=== PATIENT | female | born 1935 | race Caucasian/White ===

== ENCOUNTER → 2017-04-08 | Outpatient (CLI) | payer MEDICARE, OTHER ==
--- NOTE | 2017-04-08 11:57 | RADIOLOGY REPORT (SQ) ---
EXAM DESCRIPTION: BARIUM SWALLOW PHARYNX ONLY COMPLETED DATE/TIME: 04/08/2017 9:42 am REASON FOR STUDY: ERUCTATION (R14.2) R14.2 ERUCTATION COMPARISON: None. TECHNIQUE: Under fluoroscopic guidance, patient ingested effervescent granules followed by thick and thin barium. Fluoroscopic spot images and routine radiographic images acquired and stored on PACS. 12 MM BARIUM TABLET GIVEN: Yes. No significant delay in passage. LIMITATIONS: None. FLUOROSCOPY TIME: FLUORO TIME: 32 seconds 11 series of digital images saved to PACS. FINDINGS: NEUROMUSCULAR COORDINATION OF SWALLOW: Normal. No aspiration. ESOPHAGEAL MOTILITY: Occasional tertiary contractions, otherwise normal peristalsis. No esophageal sp asm. ESOPHAGEAL MUCOSA: Normal mucosa without masses or ulceration. GASTRO-ESOPHAGEAL JUNCTION: Small hiatal hernia. Unprovoked gastroesophageal reflux to the upper 3rd of the esophagus. Early Schatzki's ring formation without impeding passage of the barium tablet NON-GI TRACT STRUCTURES: No significant finding. OTHER: No other significant finding. IMPRESSION: Small hiatal hernia with unprovoked gastroesophageal reflux and early Schatzki's ring fo rmation COMMENT: Quality ID [id number]: Final reports for procedures using fluoroscopy that document radiation exp osure indices, or exposure time and number of fluorographic images (if radiation exposure indices are not available) TECHNICAL DOCUMENTATION: JOB ID: [id number] [email or web address]- All Rights Reserved
== END ==
LOC: RAD 08:51
PROVIDERS: ATTEND Physician Assistant
DX: K21.9 Gastro-esophageal reflux disease without esophagitis (principal); K44.9 Diaphragmatic hernia without obstruction or gangrene; K22.2 Esophageal obstruction; R14.2 Eructation
CPT/HCPCS: 74210

== ENCOUNTER → 2017-04-13 | Outpatient (CLI) | payer MEDICARE, OTHER ==
--- NOTE | 2017-04-13 12:02 | RADIOLOGY REPORT (SQ) ---
EXAM DESCRIPTION: ACUTE ABDOMEN SERIES COMPLETED DATE/TIME: 04/13/2017 11:23 am REASON FOR STUDY: [place] (R14.2) R14.2 ERUCTATION COMPARISON: None. NUMBER OF VIEWS: Three views. TECHNIQUE: Frontal chest, supine abdomen and upright abdomen radiographic images acquired. LIMITATIONS: None. FINDINGS: CHEST: Lungs clear of infiltrates. FREE AIR: None. No abnormal gas collections. BOWEL GAS PATTERN: Nonobstructive pattern. No dilated loops or air fluid levels. CALCIFICATIONS: No suspicious calcifications. HARDWARE: None in the abdomen. SOFT TISSUES: No gross mass or suggestion of organomegaly. BONES: No acute fracture. No worrisome bone lesions. OTHER: There are some barium filled diverticula. IMPRESSION: NO RADIOGRAPHIC EVIDENCE FOR ACUTE ABDOMINAL DISEASE. TECHNICAL DOCUMENTATION: JOB ID: [id number] [employer]- All Rights Reserved
== END ==
LOC: RAD 10:47
PROVIDERS: ATTEND Physician Assistant
DX: R14.2 Eructation (principal)
CPT/HCPCS: 74022

== ENCOUNTER 2017-09-23 10:48 | Observation (INO) | payer MEDICARE, OTHER ==
[2017-09-23] MEDS ORDERED: ASPIRIN 81 MG TABLET, CHEWABLE PO ONE (11:14)
--- NOTE | 2017-09-23 11:17 | ER Document Report ---
ED Medical Screen (RME) - General Chief Complaint: Chest Pain Stated Complaint: CHEST PAIN Time Seen by Provider: 09/23/17 11:12 Mode of Arrival: Wheelchair Information source: Patient TRAVEL OUTSIDE OF THE [place] IN LAST 30 DAYS: No - HPI Onset: This morning Onset/Duration: Sudden Quality of pain: Other - CAN'T DESCRIBE Severity: Severe Associated Symptoms: Shortness of breath Similar symptoms previously: No Recently seen / treated by doctor: No - Related Data Smoking: Non-smoker Allergies/Adverse Reactions: hydroxyzine HCl [From Vistaril] Allergy (Severe, Verified 09/23/17 10:50) swelling hydroxyzine pamoate [From Vistaril] Allergy (Severe, Verified 09/23/17 10:50) swelling Past Medical History - General Information source: Patient - Past Medical History Cardiac Medical History: Reports: Hx Hypercholesterolemia, Hx Hypertension Denies: Hx Atrial Fibrillation, Hx Congestive Heart Failure, Hx Coronary Artery Disease, Hx Heart Attack, Hx Peripheral Vascular Disease, Hx Heart Murmur Pulmonary Medical History: Reports: Hx Pneumonia - hx, Hx Sleep Apnea - USES MACHINE AT HOME "SOMETIMES" Denies: Hx Asthma, Hx Bronchitis, Hx COPD, Hx Tuberculosis Neurological Medical History: Denies: Hx Cerebrovascular Accident, Hx Seizures Endocrine Medical History: Reports: Hx Diabetes Mellitus Type 2. Denies: Hx Graves' Disease, Hx Hyperthyroidism, Hx Hypothyroidism Malignancy Medical History: Denies: Hx Leukemia GI Medical History: Reports: Hx Gastroesophageal Reflux Disease Musculoskeltal Medical History: Denies Hx Arthritis, Denies Hx Fibromyalgia, Denies Hx Multiple Sclerosis, Denies Hx Muscular Dystrophy Psychiatric Medical History: Reports: Hx Dementia, Hx Depression Denies: Hx Bipolar Disorder, Hx Post Traumatic Stress Disorder, Hx Schizophrenia Traumatic Medical History: Denies: Hx Fractures Infectious Medical History: Denies: Hx HIV Past Surgical History: Reports: Hx Hysterectomy. Denies: Hx Pacemaker - Immunizations Hx Diphtheria, Pertussis, Tetanus Vaccination: Yes Review of Systems - Review of Systems -: Yes ROS unobtainable due to patient's medical condition Physical Exam - Vital signs Vitals: Temp Pulse Resp BP Pulse Ox 97.9 F 70 26 H 121/48 L 100 09/23/17 11:01 09/23/17 11:01 09/23/17 11:01 09/23/17 11:01 09/23/17 11:01 Interpretation: Hypotensive, Tachypneic - General General appearance: Anxious In distress: Moderate - HEENT Head: Normocephalic Eyes: Normal Conjunctiva: Normal Mouth/Lips: Normal Mucous membranes: Normal - Respiratory Respiratory status: No respiratory distress Chest status: Nontender Breath sounds: Normal - Cardiovascular Rhythm: Regular Heart sounds: Normal auscultation Murmur: No - Extremities General upper extremity: Normal inspection General lower extremity: Normal inspection. No: Tender, Edema - Neurological Neuro grossly intact: Yes Cognition: Normal Orientation: AAOx4 - Skin Skin Temperature: Warm Skin Moisture: Dry Skin Color: Normal Skin Turgor: Elastic Course - Vital Signs Vital signs: Temp Pulse Resp BP Pulse Ox 97.9 F 70 26 H 121/48 L 100 09/23/17 11:01 09/23/17 11:01 09/23/17 11:01 09/23/17 11:01 09/23/17 11:01
--- NOTE | 2017-09-23 11:20 | ER Document Report ---
ED General - General Chief Complaint: Chest Pain Stated Complaint: CHEST PAIN Time Seen by Provider: 09/23/17 11:12 Mode of Arrival: Ambulatory Information source: Patient, Relative - daughter and friend TRAVEL OUTSIDE OF THE [place] IN LAST 30 DAYS: No - HPI Notes: 82-year-old female past medical history of dementia hypertension, type 2 diabetes, chronic kidney disease, acid reflux, depression, hyperlipidemia presents to the emergency room for sudden onset chest pain, reports she feels "like someone is sitting on my chest" that started approximately 1 hour ago. Patient reports shortness of breath, pain is sharp. Patient is gripping her chest. Patient also is complaining of left upper quadrant that started approximately the same time. Pain is 10 out of 10. Has not tried any over-the- counter medications. Denies any previous concerns of heart attack. Pain is been constant. Patient did take Ativan in the past but per daughter states that she has not taken this in a couple of years. Denies fevers, chills, palpitations, nausea, vomiting, diarrhea, hematuria,blurred vision, double vision, loss of vision, speech changes, LH, dizziness, syncope, headaches, wheezing, ST, URI, neck pain, weakness, bowel or bladder dysfunction, saddle anesthesia, numbness or tingling in bilateral upper or lower extremities equally , muscle paralysis, weakness in bilateral upper or lower extremities equally or rash. Denies IV drug use. - Related Data Allergies/Adverse Reactions: hydroxyzine HCl [From Vistaril] Allergy (Severe, Verified 09/23/17 10:50) swelling hydroxyzine pamoate [From Vistaril] Allergy (Severe, Verified 09/23/17 10:50) swelling Past Medical History - General Information source: Patient, Relative - daughter - Social History Smoking Status: Former Smoker Family History: Reviewed & Not Pertinent - Past Medical History Cardiac Medical History: Reports: Hx Hypercholesterolemia, Hx Hypertension Denies: Hx Atrial Fibrillation, Hx Congestive Heart Failure, Hx Coronary Artery Disease, Hx Heart Attack, Hx Peripheral Vascular Disease, Hx Heart Murmur Pulmonary Medical History: Reports: Hx Pneumonia - hx, Hx Sleep Apnea - USES MACHINE AT HOME "SOMETIMES" Denies: Hx Asthma, Hx Bronchitis, Hx COPD, Hx Tuberculosis Neurological Medical History: Denies: Hx Cerebrovascular Accident, Hx Seizures Endocrine Medical History: Reports: Hx Diabetes Mellitus Type 2. Denies: Hx Graves' Disease, Hx Hyperthyroidism, Hx Hypothyroidism Malignancy Medical History: Denies: Hx Leukemia GI Medical History: Reports: Hx Gastroesophageal Reflux Disease Musculoskeltal Medical History: Denies Hx Arthritis, Denies Hx Fibromyalgia, Denies Hx Multiple Sclerosis, Denies Hx Muscular Dystrophy Psychiatric Medical History: Reports: Hx Dementia, Hx Depression Denies: Hx Bipolar Disorder, Hx Post Traumatic Stress Disorder, Hx Schizophrenia Traumatic Medical History: Denies: Hx Fractures Infectious Medical History: Denies: Hx HIV Past Surgical History: Reports: Hx Hysterectomy. Denies: Hx Pacemaker - Immunizations Hx Diphtheria, Pertussis, Tetanus Vaccination: Yes Hx Pneumococcal Vaccination: 02/22/10 Review of Systems - Review of Systems Constitutional: See HPI EENT: No symptoms reported Cardiovascular: See HPI Respiratory: See HPI Gastrointestinal: See HPI Genitourinary: No symptoms reported Female Genitourinary: No symptoms reported Musculoskeletal: No symptoms reported Skin: No symptoms reported Hematologic/Lymphatic: No symptoms reported Neurological/Psychological: No symptoms reported Physical Exam - Vital signs Vitals: Temp Pulse Resp BP Pulse Ox 97.9 F 70 26 H 121/48 L 100 09/23/17 11:01 09/23/17 11:01 09/23/17 11:01 09/23/17 11:01 09/23/17 11:01 - Notes Notes: PHYSICAL EXAMINATION: GENERAL: Well-appearing, well-nourished and in no moderate distress EYES: Pupils equal round and reactive to light, extraocular movements intact, conjunctiva are normal. ENT: Nares patent, oropharynx clear without exudates. Moist mucous membranes. NECK: Normal range of motion, supple without lymphadenopathy LUNGS: Breath sounds clear to auscultation bilaterally and equal. No wheezes rales or rhonchi. Retracting with accessory muscle use. HEART: Regular rate and rhythm without murmurs ABDOMEN: Soft, nondistended abdomen. Left upper quadrant tenderness on palpation with guarding, no rebound. No masses appreciated. Female : deferred Musculoskeletal: Normal range of motion, no pitting or edema. No cyanosis. NEUROLOGICAL: Cranial nerves grossly intact. Poor memory. normal speech, normal gait. Normal sensory, motor exams PSYCH: Normal mood, normal affect. SKIN: Warm, Dry, normal turgor, no rashes or lesions noted. Course - Re-evaluation Re-evalutation: 05/02/18 18:46 82-year-old female with chest pain onset, patient given baby aspirin nature, daughter and pt states that patient's chest pain resolved after given nitro. CBC negative for leukocytosis or anemia, or hepatic dysfunction, no electrolyte disturbances. Urinalysis is leukocytes with patient. Cardiac enzymes negative, CTA chest/abdomen negative for any acute findings per radiology. After performing a Medical Screening Examination, I estimate there is LOW risk for acute appendicitis, obstruction, acute cholecystitis, perforated diverticulitis , incarcerated hernia, pancreatitis, perforated ulcer, tubo-ovarian abscess. Patient did have chest pain resolution pain 0.4 nitro, and discussed with patient that resolution chest pain after taking the nitroglycerin did not resolve diagnostically indicated coronary spasm. Discussed with patient and daughter that she will need a full cardiac workup for suspected unstable angina. Patient states after taking nitroglycerin she does not feel like she has been sitting in her chest. On reevaluation patient is not retracting, using accessory muscle use, patient does not seem to be hyperventilating. Patient is sleeping peacefully in bed. Discussed case with Dr. Bernabe Lopez, hospitalist admit for cardiac evaluation after experiencing resolution of chest pain after given sublingual nitroglycerin. All questions and concerns answered by this provider. Patient family agree with plan of care staying overnight for observation. - Vital Signs Vital signs: Temp Pulse Resp BP Pulse Ox 98.1 F 70 17 93/75 L 100 09/23/17 18:29 09/23/17 11:01 09/23/17 18:01 09/23/17 18:01 09/23/17 18:01 - Laboratory Result Diagrams: 09/23/17 11:30 09/23/17 11:30 Laboratory results interpreted by me: 09/23/17 09/23/17 09/23/17 11:30 11:30 12:16 RDW 14.4 H Sodium 148.6 H Anion Gap 20 H BUN 23 H Est GFR ( Amer) 54 L Est GFR (Non-Af Amer) 45 L Glucose 168 H Urine Nitrite POSITIVE H Ur Leukocyte Esterase MODERATE H Urine Ascorbic Acid 40 H Discharge - Discharge Clinical Impression: Unstable angina UTI (urinary tract infection) Qualifiers: Urinary tract infection type: acute cystitis Hematuria presence: without hematuria Qualified Code(s): N30.00 - Acute cystitis without hematuria Condition: Good Disposition: ADMITTED OBSERVATION Admitting Provider: Hospitalist - Dr. Kidd Onime Unit Admitted: Telemetry
[2017-09-23 11:44] LABS: ABSOLUTE EOSINOPHILS # (AUTO) 0.2 10^3/uL (0.0-0.6); ABSOLUTE LYMPHOCYTES (AUTO) 1.6 10^3/uL (0.5-4.7); ABSOLUTE MONOCYTES (AUTO) 0.5 10^3/uL (0.1-1.4); BASOPHILS % (AUTO) 0.5 % (0-2); EOSINOPHILS % (AUTO) 2.6 % (0-6); HEMATOCRIT 36.4 % (36.0-47.0); HEMOGLOBIN 12.1 g/dL (12.0-15.5); LYMPHOCYTES % (AUTO) 16.7 % (13-45); MEAN CORPUSCULAR HEMOGLOBIN 32.2 pg (27.0-33.4); MEAN CORPUSCULAR HGB CONC 33.3 g/dL (32.0-36.0); MEAN CORPUSCULAR VOLUME 97 fl (80-97); MONOCYTES % (AUTO) 5.2 % (3-13); PLATELET COUNT 226 10^3/uL (150-450); RED BLOOD COUNT 3.76 10^6/uL (3.72-5.28); RED CELL DISTRIBUTION WIDTH 14.4 % (11.5-14.0); TOTAL CELLS COUNTED % (AUTO) 100 %; WHITE BLOOD COUNT 9.3 10^3/uL (4.0-10.5)
[2017-09-23] MEDS ORDERED: NITROGLYCERIN 0.4 MG/TAB 25 TAB/BOTTLE SL PRN (11:47)
[2017-09-23 12:14] LABS: CREATINE KINASE MB 0.69 ng/mL (<4.55)
--- NOTE | 2017-09-23 12:14 | RADIOLOGY REPORT (SQ) ---
EXAM DESCRIPTION: CHEST SINGLE VIEW COMPLETED DATE/TIME: 09/23/2017 12:06 pm REASON FOR STUDY: CHEST PAIN COMPARISON: Two-view chest 03/27/2014 PA chest 04/13/2017 EXAM PARAMETERS: NUMBER OF VIEWS: One view. TECHNIQUE: Single frontal radiographic view of the chest acquired. RADIATION DOSE: NA LIMITATIONS: Lordotic film FINDINGS: LUNGS AND PLEURA: No opacities, masses or pneumothorax. No pleural effusion. MEDIASTINUM AND HILAR STRUCTURES: No masses. Contour normal. HEART AND VASCULAR STRUCTURES: Heart normal in size. Normal vasculature. BONES: No acute findings. HARDWARE: None in the chest. OTHER: No other significant finding. IMPRESSION: NO ACUTE RADIOGRAPHIC FINDING IN THE CHEST. TECHNICAL DOCUMENTATION: JOB ID: [id number] [email or web address]- All Rights Reserved Reading location - IP/workstation name: [email or web address]
[2017-09-23 12:23] LABS: TROPONIN I < 0.012 ng/mL
[2017-09-23 12:44] LABS: APPEARANCE,URINE CLOUDY; BILIRUBIN,URINE NEGATIVE (NEGATIVE); COLOR,URINE YELLOW; GLUCOSE, URINE NEGATIVE (NEGATIVE); KETONES,URINE NEGATIVE (NEGATIVE); LEUKOCYTE ESTERASE,URINE MODERATE (NEGATIVE); NITRITE,URINE POSITIVE (NEGATIVE); PROTEIN,URINE NEGATIVE (NEGATIVE); URINE SPECIFIC GRAVITY 1.016; UROBILINOGEN,URINE NEGATIVE mg/dL (<2.0)
[2017-09-23 13:53] LABS: ALANINE AMINOTRANSFERASE 34 U/L (9-52); ALKALINE PHOSPHATASE 117 U/L (38-126); ASPARTATE AMINO TRANSFERASE 27 U/L (14-36); BILIRUBIN,DIRECT 0.3 mg/dL (0.0-0.4); BILIRUBIN,TOTAL 0.3 mg/dL (0.2-1.3); BLOOD UREA NITROGEN 23 mg/dL (7-20); CALCIUM 9.7 mg/dL (8.4-10.2); CARBON DIOXIDE 22 mmol/L (22-30); CHLORIDE 107 mmol/L (98-107); CREATINE KINASE 50 U/L (30-135); GLUCOSE 168 mg/dL (75-110); SODIUM 148.6 mmol/L (137-145); TOTAL PROTEIN 7.2 g/dL (6.3-8.2)
[2017-09-23 13:58] LABS: ANION GAP 20 (5-19)
[2017-09-23] MEDS ORDERED: NORMAL SALINE 1000 ML 1,000 ML IV PRN (14:09)
[2017-09-23] MEDS ORDERED: CEFTRIAXONE INJ 1000 MG VIAL IM ONE (14:50)
--- NOTE | 2017-09-23 15:07 | RADIOLOGY REPORT (SQ) ---
EXAM DESCRIPTION: CTA CHEST; CTA ABDOMEN COMPLETED DATE/TIME: 09/23/2017 2:42 pm REASON FOR STUDY: dyspnea with cp; LUQ tenderness, severe pain, sudden onset COMPARISON: None. TECHNIQUE: CT scan of the chest, abdomen (to the level of the aortic bifurcation) performed using he lical scanning technique with dynamic intravenous contrast injection. Additional delayed abdominal s gene. Images reviewed with lung, soft tissue and bone windows. Reconstructed coronal and sagitta l MPR images reviewed. Additional 3 dimensional post-processing performed to develop Maximal Intensity Projection images ([place] P). All images stored on PACS. All CT scanners at this facility use dose modulation, iterative reconstruction, and/or weight based d osing when appropriate to reduce radiation dose to as low as reasonably achievable (ALARA). [facility]: Dose Right [facility]: CareDose [facility]: Dose Right [facility]: Teradose 4D [facility]: [employer] CONTRAST TYPE AND DOSE: contrast/concentration: Isovue 370.00 mg/ml; Total Contrast Delivered: 64.0 ml; Total Saline Delivered: 99.1 ml Contrast bolus optimized for the pulmonary arteries. Not diagnostic for the aorta. RENAL FUNCTION: Creatinine 1.2 RADIATION DOSE: CT Rad equipment meets quality standard of care and radiation dose reduction techniq ues were employed. CTDIvol: 11.3 - 19.6 mGy. DLP: 1111 mGy-cm. . LIMITATIONS: None. FINDINGS: Chest Aorta: Atherosclerotic. No evidence of aneurysm or dissection. Heavily calcified but patent great vessel origins. Pulmonary arteries: Limited assessment due to phase of contrast. No gross central clot detected. Mediastinum: No adenopathy or mass. No pericardial effusion. No significant coronary calcification. Lungs: Motion artifact. Otherwise generally clear. Bones: No evidence of fracture or lesion. Abdomen Aorta: Atherosclerotic. No evidence of aneurysm or dissection. Patent major arterial branches. Solid organs: No lesion. No urinary obstruction. No peripancreatic inflammatory changes. Gallbladder: Surgically absent. No duct dilatation. Bowel: No evidence of mechanical bowel obstruction. No abnormal bowel wall thickening. Other: No ascites or abnormal gas. No bone lesions or fracture. IMPRESSION: 1. No evidence of thoracic or abdominal aneurysm or dissection. 2. No acute or suspicio us thoracic or abdominal findings. COMMENT: Quality ID # [id number]: Final reports with documentation of one or more dose reduction techniques (e.g., Automated exposure control, adjustment of the mA and/or kV according to patient size, use of iterative reconstruction technique) TECHNICAL DOCUMENTATION: JOB ID: [id number] [employer]- All Rights Reserved Reading location - IP/workstation name: [email or web address]
--- NOTE | 2017-09-23 15:07 | RADIOLOGY REPORT (SQ) ---
EXAM DESCRIPTION: CTA CHEST; CTA ABDOMEN COMPLETED DATE/TIME: 09/23/2017 2:42 pm REASON FOR STUDY: dyspnea with cp; LUQ tenderness, severe pain, sudden onset COMPARISON: None. TECHNIQUE: CT scan of the chest, abdomen (to the level of the aortic bifurcation) performed using he lical scanning technique with dynamic intravenous contrast injection. Additional delayed abdominal s gene. Images reviewed with lung, soft tissue and bone windows. Reconstructed coronal and sagitta l MPR images reviewed. Additional 3 dimensional post-processing performed to develop Maximal Intensity Projection images ([place] P). All images stored on PACS. All CT scanners at this facility use dose modulation, iterative reconstruction, and/or weight based d osing when appropriate to reduce radiation dose to as low as reasonably achievable (ALARA). [facility]: Dose Right [facility]: CareDose [facility]: Dose Right [facility]: Teradose 4D [facility]: [employer] CONTRAST TYPE AND DOSE: contrast/concentration: Isovue 370.00 mg/ml; Total Contrast Delivered: 64.0 ml; Total Saline Delivered: 99.1 ml Contrast bolus optimized for the pulmonary arteries. Not diagnostic for the aorta. RENAL FUNCTION: Creatinine 1.2 RADIATION DOSE: CT Rad equipment meets quality standard of care and radiation dose reduction techniq ues were employed. CTDIvol: 11.3 - 19.6 mGy. DLP: 1111 mGy-cm. . LIMITATIONS: None. FINDINGS: Chest Aorta: Atherosclerotic. No evidence of aneurysm or dissection. Heavily calcified but patent great vessel origins. Pulmonary arteries: Limited assessment due to phase of contrast. No gross central clot detected. Mediastinum: No adenopathy or mass. No pericardial effusion. No significant coronary calcification. Lungs: Motion artifact. Otherwise generally clear. Bones: No evidence of fracture or lesion. Abdomen Aorta: Atherosclerotic. No evidence of aneurysm or dissection. Patent major arterial branches. Solid organs: No lesion. No urinary obstruction. No peripancreatic inflammatory changes. Gallbladder: Surgically absent. No duct dilatation. Bowel: No evidence of mechanical bowel obstruction. No abnormal bowel wall thickening. Other: No ascites or abnormal gas. No bone lesions or fracture. IMPRESSION: 1. No evidence of thoracic or abdominal aneurysm or dissection. 2. No acute or suspicio us thoracic or abdominal findings. COMMENT: Quality ID # [id number]: Final reports with documentation of one or more dose reduction techniques (e.g., Automated exposure control, adjustment of the mA and/or kV according to patient size, use of iterative reconstruction technique) TECHNICAL DOCUMENTATION: JOB ID: [id number] [employer]- All Rights Reserved Reading location - IP/workstation name: [email or web address]
[2017-09-23 15:44] LABS: CREATINE KINASE MB 0.61 ng/mL (<4.55); TROPONIN I < 0.012 ng/mL
[2017-09-23] MEDS ORDERED: CEFTRIAXONE INJ 1000 MG VIAL IV ONE (15:44)
--- NOTE | 2017-09-23 18:17 | PDOC H&P ---
History of Present Illness Admission Date/PCP: 09/23/17 17:18 BAILEE MONTEZ Patient complains of: Chest pain, no flank pain History of Present Illness: VEGA MARIO is a 82 year old female with history of hypertension, presented to the ED with complaint of left flank pain radiating to left chest, onset today. No trauma. She had shortness of breath, no palpitations. In the emergency room she was treated sublingual nitro with relief of pain. She reports limited exercise tolerance. She is that he does not get chest pain. Patient also found to have UTI and treated with 1 g of Rocephin. She denies fever or chills, no nausea vomiting. She has CTA of the abdomen and chest done that revealed no significant findings. Initial troponin negative. Patient referred to hospitalist service for admission and further evaluation and management. Past Medical History Cardiac Medical History: Reports: Hyperlipidema, Hypertension Denies: Atrial Fibrillation, Congestive Heart Failure, Coronary Artery Disease, Myocardial Infarction, Peripheral Vascular Disease, Heart Murmur Pulmonary Medical History: Reports: Pneumonia - hx, Sleep Apnea - USES MACHINE AT HOME "SOMETIMES" Denies: Asthma, Bronchitis, Chronic Obstructive Pulmonary Disease (COPD), Tuberculosis Neurological Medical History: Denies: Seizures Endocrine Medical History: Reports: Diabetes Mellitus Type 2 Denies: Hyperthyroidism, Hypothyroidism Malignancy Medical History: Denies: Leukemia GI Medical History: Reports: Gastroesophageal Reflux Disease Musculoskeltal Medical History: Denies: Arthritis, Fibromyalgia Psychiatric Medical History: Reports: Dementia, Depression Denies: Bipolar Disorder, Post Traumatic Stress Disorder Hematology: Reports: Anemia Denies: Hemophilia, Sickle Cell Disease Infectious Medical History: Denies: HIV Past Surgical History Past Surgical History: Reports: Cholecystectomy, Hysterectomy Denies: Amputation, Pacemaker Social History Smoking Status: Never Smoker Hx Recreational Drug Use: No Hx Prescription Drug Abuse: No Family History Family History: Reviewed & Not Pertinent Parental Family History Reviewed: Yes Children Family History Reviewed: Yes Sibling(s) Family History Reviewed.: Yes Medication/Allergy Home Medications: Atorvastatin Calcium [Lipitor 10 mg Tablet] 10 mg PO QHS 09/23/17 Cholecalciferol (Vitamin D3) [Vitamin D3 1000 unit Chewable Tablet] 1,000 unit PO DAILY 09/23/17 Clopidogrel Bisulfate [Plavix 75 mg Tablet] 75 mg PO DAILY 09/23/17 Donepezil HCl [Aricept] 10 mg PO QHS 09/23/17 Escitalopram Oxalate [Lexapro 10 mg Tablet] 10 mg PO DAILY 09/23/17 Ferrous Sulfate [Feosol 325 mg Tablet] 325 mg PO DAILY 09/23/17 Hydrochlorothiazide [Hydrodiuril 25 mg Tablet] 12.5 mg PO DAILY 09/23/17 Levothyroxine Sodium [Synthroid 0.025 mg Tablet] 0.025 mg PO DAILY 09/23/17 Metoprolol Succinate [Toprol Xl 50 mg Tab.sr] 50 mg PO DAILY 09/23/17 Pantoprazole Sodium [Protonix] 20 mg PO DAILY 09/23/17 Valsartan [Diovan 80 mg Tablet] 80 mg PO DAILY 09/23/17 Allergies/Adverse Reactions: hydroxyzine HCl [From Vistaril] Allergy (Severe, Verified 09/23/17 10:50) swelling hydroxyzine pamoate [From Vistaril] Allergy (Severe, Verified 09/23/17 10:50) swelling Review of Systems ROS unobtainable: Due to endotracheal tube Review of Systems: CONSTITUTIONAL : Fever, chills -- No; unexpalined fatigue -- No EENT: Denies eye, ear, throat, or mouth pain or symptoms. Denies nasal or sinus congestion or discharge. Denies throat, tongue, or mouth swelling or difficulty swallowing. CARDIOVASCULAR: As in HPI RESPIRATORY: Denies cough, no shortness of breath, difficulty breathing. GASTROINTESTINAL: As in HPI. No rectal bleeding. GENITOURINARY: Urinary symptoms -- no. MUSCULOSKELETAL: No acute weakness SKIN: Denies rash, lesions or sores. HEMATOLOGIC : Denies easy bruising or bleeding. LYMPHATIC: Denies swollen, enlarged glands. NEUROLOGICAL: New weakness, headaches, slured speach - No PSYCHIATRIC: Changes anxiety or stress, depression, suicidal ideation, or homicidal ideation -- No ALL OTHER SYSTEMS REVIEWED AND NEGATIVE. Physical Exam Vital Signs: Temp Pulse Resp BP Pulse Ox 97.9 F 70 17 140/63 H 100 09/23/17 11:01 09/23/17 11:01 09/23/17 17:00 09/23/17 14:01 09/23/17 17:00 GENERAL: Well-developed female, no acute distress HEENT: Normocephalic/atraumatic NECK supple, no JVD CARDIOVASCULAR: RRR, normal S1-S2, no appreciable LUNGS: CTA bilaterally ABDOMEN: Soft, NT, NL bowel sounds EXTREMITIES: No edema, clubbing, cyanosis NEUROLOGICAL: Alert, oriented x 3, no lateralizing weakness Results Laboratory Results: CBC normal, BUN and creatinine 23/1.17, sodium 148, glucose 168. Urinalysis positive nitrite, moderate leukocyte esterase, urine white blood cells 7-1, 3+ bacteria. Lactic acid 1.2 Impressions: Chest X-Ray 09/23/17 11:13 IMPRESSION: NO ACUTE RADIOGRAPHIC FINDING IN THE CHEST. Chest/Abdomen CTA 09/23/17 12:01 IMPRESSION: 1. No evidence of thoracic or abdominal aneurysm or dissection. 2. No acute or suspicious thoracic or abdominal findings. Assessment & Plan - Diagnosis (1) UTI (urinary tract infection) Is this a current diagnosis for this admission?: Yes Plan: Patient received a dose of Rocephin in the ED. We will continue with same antibiotics. Check urine culture and sensitivity and adjust antibiotics as may be needed. (2) Chest pain Is this a current diagnosis for this admission?: Yes Plan: This is cardiac chest pain. Appears patient's symptoms mostly for UTI. Will rule out DC with serial troponin. Check EKG. (3) Hypertension Is this a current diagnosis for this admission?: Yes Plan: Resume home medications.
[2017-09-23] MEDS ORDERED: ENOXAPARIN SODIUM INJ 40 MG/0.4 ML DISP.SYRIN SUBCUT ONE (21:00)
[2017-09-23] MEDS: ATORVASTATIN CALCIUM 10 MG TABLET PO SCH (22:32)
[2017-09-23] MEDS: DONEPEZIL HCL 5 MG TABLET PO SCH (22:32)
[2017-09-23] MEDS ORDERED: DEXTROSE 50%-WATER SYRINGE 12.5 GM/25 ML DOSE IV PRN (22:40)
[2017-09-23] MEDS ORDERED: DEXTROSE 40% GEL 15 GM TUBE X 2 PO PRN (22:40)
[2017-09-23] MEDS ORDERED: GLUCAGON,HUMAN RECOMB 1 MG INJ IM PRN (22:40)
[2017-09-23] MEDS ORDERED: DEXTROSE 50%-WATER SYRINGE 25 GM/50 ML DOSE IV PRN (22:40)
[2017-09-23] MEDS ORDERED: DEXTROSE 40% GEL 15 GM TUBE PO PRN (22:40)
[2017-09-23] MEDS: INSULIN LISPRO 100 UNIT/ML 3 ML VIAL SUBCUT PRN (22:45)
--- NOTE | 2017-09-23 23:33 | EKG REPORT ---
SEVERITY:- NORMAL ECG - SINUS RHYTHM : Confirmed by: Guerrero Orourke 23-Sep-2017 23:33:11
[2017-09-24 07:20] LABS: ABSOLUTE EOSINOPHILS # (AUTO) 0.3 10^3/uL (0.0-0.6); ABSOLUTE LYMPHOCYTES (AUTO) 1.6 10^3/uL (0.5-4.7); ABSOLUTE MONOCYTES (AUTO) 0.6 10^3/uL (0.1-1.4); ABSOLUTE NEUT (AUTO) 5.3 10^3/uL (1.7-8.2); BASOPHILS % (AUTO) 0.6 % (0-2); EOSINOPHILS % (AUTO) 3.7 % (0-6); HEMATOCRIT 32.7 % (36.0-47.0); HEMOGLOBIN 11.3 g/dL (12.0-15.5); LYMPHOCYTES % (AUTO) 20.4 % (13-45); MEAN CORPUSCULAR HGB CONC 34.5 g/dL (32.0-36.0); MEAN CORPUSCULAR VOLUME 96 fl (80-97); MONOCYTES % (AUTO) 7.3 % (3-13); PLATELET COUNT 176 10^3/uL (150-450); RED BLOOD COUNT 3.42 10^6/uL (3.72-5.28); RED CELL DISTRIBUTION WIDTH 14.4 % (11.5-14.0); TOTAL CELLS COUNTED % (AUTO) 100 %; WHITE BLOOD COUNT 7.8 10^3/uL (4.0-10.5)
[2017-09-24 07:42] LABS: ALANINE AMINOTRANSFERASE 29 U/L (9-52); ALBUMIN 3.5 g/dL (3.5-5.0); ALKALINE PHOSPHATASE 106 U/L (38-126); ANION GAP 12 (5-19); ASPARTATE AMINO TRANSFERASE 22 U/L (14-36); BILIRUBIN,DIRECT 0.2 mg/dL (0.0-0.4); BILIRUBIN,TOTAL 0.2 mg/dL (0.2-1.3); BLOOD UREA NITROGEN 20 mg/dL (7-20); CALCIUM 9.2 mg/dL (8.4-10.2); CARBON DIOXIDE 25 mmol/L (22-30); CHLORIDE 108 mmol/L (98-107); GLUCOSE 94 mg/dL (75-110); POTASSIUM 3.9 mmol/L (3.6-5.0); SODIUM 145.3 mmol/L (137-145); TOTAL PROTEIN 6.3 g/dL (6.3-8.2)
[2017-09-24] MEDS ORDERED: CEFTRIAXONE 1 GM/D5W RTU 1 GM/50 ML RTUPB IV SCH (10:00)
[2017-09-24] MEDS: HYDROCHLOROTHIAZIDE 25 MG TABLET PO SCH (10:20)
[2017-09-24] MEDS: CHOLECALCIFEROL (D3) 1,000 UNIT TABLET PO SCH (10:22)
[2017-09-24] MEDS: VALSARTAN 80 MG TABLET PO SCH (10:25)
[2017-09-24] MEDS: FERROUS SULFATE 325 MG TABLET PO SCH (10:25)
[2017-09-24] MEDS: ESCITALOPRAM OXALATE 10 MG TABLET PO SCH (10:26)
[2017-09-24] MEDS: CLOPIDOGREL BISULFATE 75 MG TABLET PO SCH (10:26)
[2017-09-24] MEDS: LEVOTHYROXINE SODIUM 0.025 MG TABLET PO SCH (10:27)
[2017-09-24] MEDS: LANSOPRAZOLE 15 MG TAB.RAP.DR PO SCH (10:27)
[2017-09-24] MEDS: ENOXAPARIN SODIUM INJ 40 MG/0.4 ML DISP.SYRIN SUBCUT SCH (10:28)
[2017-09-24] MEDS: METOPROLOL SUCCINATE 50 MG TAB.SR.24H PO SCH (10:28)
[2017-09-24] MEDS: CEFTRIAXONE SODIUM 1,000 MG in DEXTROSE 5%-WATER 50 ML IV SCH (11:27)
[2017-09-24] MEDS: INSULIN LISPRO 100 UNIT/ML 3 ML VIAL SUBCUT PRN ×2 (13:15→17:31)
--- NOTE | 2017-09-24 17:13 | PDOC PROGRESS REPORT ---
Subjective Progress Note for:: 09/24/17 Subjective:: Better at this time. No more chest pain. Caregiver at bedside and stated that the patient had complained of left-sided chest pain and that was why she brought patient to the ED. No fever or chills at this time, no nausea or vomiting. No diaphoresis. Reason For Visit: CHEST PAIN,UTI Physical Exam Vital Signs: Temp Pulse Resp BP Pulse Ox 97.8 F 59 L 15 131/53 H 100 09/24/17 07:28 09/24/17 07:28 09/24/17 07:28 09/24/17 07:28 09/24/17 07:28 Intake & Output 09/23/17 09/24/17 09/25/17 06:59 06:59 06:59 Intake Total 350 Output Total 0 Balance 350 Weight 63.9 kg GEN: NAD, well-developed, well-nourished CV: RRR, NL S1S2 LUNGS: CTA bilaterally ABDOMEN Soft, NT, +BS EXTERMITIES: No e/c/c NEURO: Alert, oriented 3, no acute weakness Results Laboratory Results: 09/24/17 06:32 09/24/17 06:32 09/24/17 09/24/17 06:32 06:32 WBC 7.8 RBC 3.42 L Hgb 11.3 L Hct 32.7 L MCV 96 MCH 33.0 MCHC 34.5 RDW 14.4 H Plt Count 176 Seg Neutrophils % 68.0 Lymphocytes % 20.4 Monocytes % 7.3 Eosinophils % 3.7 Basophils % 0.6 Absolute Neutrophils 5.3 Absolute Lymphocytes 1.6 Absolute Monocytes 0.6 Absolute Eosinophils 0.3 Absolute Basophils 0.0 Sodium 145.3 H Potassium 3.9 Chloride 108 H Carbon Dioxide 25 Anion Gap 12 BUN 20 Creatinine 1.10 Est GFR ( Amer) 58 L Est GFR (Non-Af Amer) 48 L Glucose 94 Calcium 9.2 Total Bilirubin 0.2 AST 22 ALT 29 Alkaline Phosphatase 106 Total Protein 6.3 Albumin 3.5 Impressions: Chest X-Ray 09/23/17 11:13 IMPRESSION: NO ACUTE RADIOGRAPHIC FINDING IN THE CHEST. Chest/Abdomen CTA 09/23/17 12:01 IMPRESSION: 1. No evidence of thoracic or abdominal aneurysm or dissection. 2. No acute or suspicious thoracic or abdominal findings. Assessment & Plan - Diagnosis (1) UTI (urinary tract infection) Qualifiers: Urinary tract infection type: acute cystitis Hematuria presence: without hematuria Qualified Code(s): N30.00 - Acute cystitis without hematuria Is this a current diagnosis for this admission?: Yes Plan: We will continue with IV Rocephin, day #2. Follow-up urine culture and sensitivity and adjust antibiotics as may be needed. (2) Chest pain Is this a current diagnosis for this admission?: Yes Plan: I had doubted that this is cardiac chest pain, suspecting patient's symptoms mostly likely from UTI as she was indicated flank pain. With the new history from caregiver of patient complaint of chest pain, will order stress test to rule out ischemia. Patient has ruled out for RI with serial troponin negative 3. (3) Hypertension Is this a current diagnosis for this admission?: Yes Plan: Continue home medications. - Plan Summary Plan Summary: Possible discharge home in a.m. if remains stable and stress test negative.
[2017-09-24] MEDS: ATORVASTATIN CALCIUM 10 MG TABLET PO SCH (21:19)
[2017-09-24] MEDS: DONEPEZIL HCL 5 MG TABLET PO SCH (21:19)
[2017-09-25] MEDS: CHOLECALCIFEROL (D3) 1,000 UNIT TABLET PO SCH (11:35)
[2017-09-25] MEDS: LANSOPRAZOLE 15 MG TAB.RAP.DR PO SCH (11:35)
[2017-09-25] MEDS: VALSARTAN 80 MG TABLET PO SCH (11:36)
[2017-09-25] MEDS: METOPROLOL SUCCINATE 50 MG TAB.SR.24H PO SCH (11:36)
[2017-09-25] MEDS: ESCITALOPRAM OXALATE 10 MG TABLET PO SCH (11:36)
[2017-09-25] MEDS: HYDROCHLOROTHIAZIDE 25 MG TABLET PO SCH (11:37)
[2017-09-25] MEDS: ENOXAPARIN SODIUM INJ 40 MG/0.4 ML DISP.SYRIN SUBCUT SCH (11:37)
[2017-09-25] MEDS: LEVOTHYROXINE SODIUM 0.025 MG TABLET PO SCH (11:37)
[2017-09-25] MEDS: FERROUS SULFATE 325 MG TABLET PO SCH (11:37)
[2017-09-25] MEDS: CLOPIDOGREL BISULFATE 75 MG TABLET PO SCH (11:38)
[2017-09-25] MEDS: CEFTRIAXONE SODIUM 1,000 MG in DEXTROSE 5%-WATER 50 ML IV SCH (11:41)
--- NOTE | 2017-09-25 12:34 | DRAGON STRESS TEST REPORT ---
INTRAVENOUS LEXISCAN CARDIOLITE STRESS TEST USING SINGLE PHOTON EMMISION COMPUTERIZED TOMOGRAPHIC. DATE OF PROCEDURE: September 25, 2017, INDICATION : Chest pain CARDIAC RISK FACTORS: Diabetes, hypertension, dyslipidemia RESTING EKG: Sinus rhythm with minor nonspecific ST segment changes at baseline. STRESS EKG: No significant ST segment changes noted with LexiScan bolus REASON FOR TERMINATION: Protocol. PROCEDURE REPORT: Baseline heart rate 63 beats per minute with blood pressure of 137/67. Patient had no significant complaints. Patient was bolused with Lexiscan 0.4 mg intravenously followed by saline bolus. Heart rate at 2 minutes post bolus 98 with a blood pressure of 143/66. 3 minutes post bolus heart rate 99 with blood pressure of 170/75. No significant EKG changes were noted. Patient had no significant complaints during the procedure or postprocedure. Patient injected with Aminophyllin 75 mg at 3 minutes or later after Lexiscan bolus. CONCLUSIONS: Normal EKG and hemodynamic response to IV LexiScan. NUCLEAR DATA: At rest the patient was given 9.87 millicuries of technetium 99 sestamibi injected intravenously. As per protocol rest gated SPECT images were obtained. On day of stress test, the patient was given intravenous LexiScan at a dose of 0.4 mg in 5 mL intravenously, followed by flush with normal saline. Subsequently the stress dose of 32.1 millicuries of technetium 99 sestamibi was injected intravenously. As per protocol stress gated images were obtained. NUCLEAR INTERPRETATION: Both raw and processed data were used for interpretation. Visual, qualitative, computer-generated quantitative data was used. There was good myocardial uptake of technetium compound. Motion artifact and soft tissue attenuations were noted. Increased visceral uptake was noted. No definitive areas of transient perfusion defect noted, No definitive areas of fixed perfusion defect or scars noted. EKG gated imaging showed LV EF at 71 %, rest and stress gated EF similar visually. T. I D. ratio was 1.07. Lung heart ratio noted to be within normal limits 0.34. No significant extracardiac and abnormal radiotracer activities were noted. RV free wall uptake was noted to be WNL. IMPRESSION: Also refer to comments under nuclear interpretation. Also test results needs to be interpreted in the context of pretest probability. 1. No definitive areas of transient perfusion defect noted. 2. There is no definitive scintigraphic evidence of myocardial infarction/scar. 3. EKG gated imaging shows left ventricular ejection fraction of approx. 71 %. 4. Clinical correlation requested as occasionally single vessel disease or balanced ischemia could be missed. In approximately 10% of the cases Lexiscan may not cause adequate vasodilatory stress. RECOMMENDATIONS: Aggressive risk factor modification and medical management. Further evaluation may be needed if continued symptoms or other high risk indicators are noted on clinical evaluation. Close cardiology follow-up is also recommended. Clinical correlation with echocardiogram derived ejection fraction. Inability to exercise by itself can lead to increased cardiovascular event risks. Consider cardiology consultation and or follow-up if clinically indicated. I am available for cardiology evaluation and consultation if requested by the blueprint developer, unless patient already has a retort load expediter. GUSTAVO
[2017-09-25] MEDS: INSULIN LISPRO 100 UNIT/ML 3 ML VIAL SUBCUT PRN (14:01)
[2017-09-25] MEDS ORDERED: AMINOPHYLLINE INJ/PF 250 MG/10 ML SDV IV ONE (14:46)
[2017-09-25] MEDS ORDERED: REGADENOSON INJ 0.4 MG/5 ML DISP.SYRIN IV ONE (14:46)
[2017-09-25 15:04] VITALS: BP 131/52
--- NOTE | 2017-09-25 15:09 | PDOC DISCHARGE SUMMARY ---
General - Admit/Disc Date/PCP Admission Date/Primary Care Provider: 09/23/17 17:18 BAILEE MONTEZ Discharge Date: 09/25/17 - Discharge Diagnosis (1) UTI (urinary tract infection) Is this a current diagnosis for this admission?: Yes Summary: Urine cultures positive for E. coli. Blood culture negative. Due to positive UCx and symptoms, received Ceftriaxone IV * 2 days. Based on speciation and sensitivities, transitioned to Cefuroxime 250mg PO * 5 days to complete 1 week course. Noted to have diarrhea while on Ceftriaxone. Encouraged to increase yogurt intake. Can consider taking probiotic if diarrhea persists. Contact PCP if diarrhea worsens or does not improve. (2) Chest pain Is this a current diagnosis for this admission?: Yes Summary: Presented with chest/flank pain. Troponins negative * 3. Stress tests was ordered and completed on 09/25. This was negative for ischemia and no evidence of pathology. (3) Hypertension Is this a current diagnosis for this admission?: Yes Summary: BPs stable, continue home medications at discharge. - Additional Information Resuscitation Status: Full Code Discharge Diet: As Tolerated Discharge Activity: Activity As Tolerated Home Medications: Atorvastatin Calcium [Lipitor 10 mg Tablet] 10 mg PO QHS 09/23/17 Cholecalciferol (Vitamin D3) [Vitamin D3 1000 unit Chewable Tablet] 1,000 unit PO DAILY 09/23/17 Clopidogrel Bisulfate [Plavix 75 mg Tablet] 75 mg PO DAILY 09/23/17 Donepezil HCl [Aricept] 10 mg PO QHS 09/23/17 Escitalopram Oxalate [Lexapro 10 mg Tablet] 10 mg PO DAILY 09/23/17 Ferrous Sulfate [Feosol 325 mg Tablet] 325 mg PO DAILY 09/23/17 Hydrochlorothiazide [Hydrodiuril 25 mg Tablet] 12.5 mg PO DAILY 09/23/17 Levothyroxine Sodium [Synthroid 0.025 mg Tablet] 0.025 mg PO DAILY 09/23/17 Metoprolol Succinate [Toprol Xl 50 mg Tab.sr] 50 mg PO DAILY 09/23/17 Pantoprazole Sodium [Protonix] 20 mg PO DAILY 09/23/17 Valsartan [Diovan 80 mg Tablet] 80 mg PO DAILY 09/23/17 Cefuroxime Axetil [Ceftin 250 mg Tablet] 250 mg PO BID tablet 09/25/17 History of Present Illness History of Present Illness: VEGA MARIO is a 82 year old female with PMH of hypertension, presented to the ED with complaint of left flank pain radiating to left chest, onset today. No trauma. She had shortness of breath, no palpitations. In the emergency room she was treated sublingual nitro with relief of pain. She reports limited exercise tolerance. She is that he does not get chest pain. Patient also found to have UTI and treated with 1 g of Rocephin. She denies fever or chills , no nausea vomiting. She has CTA of the abdomen and chest done that revealed no significant findings. Initial troponin negative. Patient referred to hospitalist service for admission and further evaluation and management. Work up revealed UTI. Physical Exam Vital Signs: Temp Pulse Resp BP Pulse Ox 98.0 F 63 16 121/60 100 09/25/17 11:33 09/25/17 11:33 09/25/17 11:33 09/25/17 11:33 09/25/17 11:33 Intake & Output 09/24/17 09/25/17 09/26/17 06:59 06:59 06:59 Intake Total 350 694 0 Output Total 0 Balance 350 694 0 Weight 63.9 kg 63.1 kg General appearance: PRESENT: no acute distress, well-developed, well-nourished, other - pleasant Mouth exam: PRESENT: moist Respiratory exam: PRESENT: clear to auscultation cheli. ABSENT: unlabored Cardiovascular exam: PRESENT: +S1, +S2. ABSENT: tachycardia GI/Abdominal exam: PRESENT: soft. ABSENT: tenderness Neurological exam: PRESENT: alert, awake, CN II-XII grossly intact Psychiatric exam: PRESENT: appropriate affect Results Laboratory Results: 09/24/17 06:32 09/24/17 06:32 09/24/17 12:41 Troponin I < 0.012 Impressions: Chest X-Ray 09/23/17 11:13 IMPRESSION: NO ACUTE RADIOGRAPHIC FINDING IN THE CHEST. Chest/Abdomen CTA 09/23/17 12:01 IMPRESSION: 1. No evidence of thoracic or abdominal aneurysm or dissection. 2. No acute or suspicious thoracic or abdominal findings. Qualifiers - * PATIENT BEING DISCHARGED WITH ANY OF THE FOLLOWING DIAGNOSIS: No
[2017-09-25] MEDS ORDERED: CEFUROXIME 250 MG TABLET PO SCH (18:00)
== END 2017-09-25 15:53 | disposition home or self-care (01) ==
LOC: ER 10:48 → EH 17:18 → 3S 21:37
PROVIDERS: ADMIT Family Medicine; ATTEND Family Medicine
DX: R07.9 Chest pain, unspecified (principal); N30.00 Acute cystitis without hematuria; B96.20 Unspecified Escherichia coli [E. coli] as the cause of diseases classified elsewhere; I10 Essential (primary) hypertension; G47.30 Sleep apnea, unspecified; F03.90 Unspecified dementia, unspecified severity, without behavioral disturbance, psychotic disturbance, mood disturbance, and anxiety; E78.5 Hyperlipidemia, unspecified; I95.9 Hypotension, unspecified; R06.82 Tachypnea, not elsewhere classified; K21.9 Gastro-esophageal reflux disease without esophagitis; Z79.899 Other long term (current) drug therapy; Z79.02 Long term (current) use of antithrombotics/antiplatelets; Z90.49 Acquired absence of other specified parts of digestive tract; Z90.710 Acquired absence of both cervix and uterus; Z87.891 Personal history of nicotine dependence; Z87.01 Personal history of pneumonia (recurrent)
CPT/HCPCS: 93005; 99285; 96361; 96365; 36415 ×2; 87040; 87086; 82553; 82962 ×3; 82550; 83690; 83735; 85025 ×2; 87088; 80053 ×2; 81001; 84484 ×2; 87186; 83605; 93017; 71045; 78452; 71275; 74175; 93010; 94660; A9500; A9270 ×21; J2785; J1650 ×3; J0696 ×3; J7030; J0280; Q9969; G0378; J1815; J3490

== ENCOUNTER 2018-10-01 15:43 | Inpatient (IN) | payer MEDICARE, OTHER ==
--- NOTE | 2018-10-01 16:54 | ER Document Report ---
ED Medical Screen (RME) - General Chief Complaint: Fever, Infant <30 Days Stated Complaint: FEVER Time Seen by Provider: 10/01/18 16:52 Primary Care Provider: AZAEL MCKENZIE PA [Primary Care Provider] - Follow up as needed Information source: Relative Notes: Patient presents with family member with report of fever that started today. Family member states that patient may have spit up versus vomited x1 episode today. Family member is concerned that patient may have a UTI as a potential source for the fever but patient has otherwise not had any other symptoms. Patient does have dementia. hx: Dementia, hypertension, diabetes, dyslipidemia, chronic kidney disease I have greeted and performed a rapid initial assessment of this patient. A comprehensive ED assessment and evaluation of the patient, analysis of test results and completion of the medical decision making process will be conducted by additional ED providers. TRAVEL OUTSIDE OF THE [place] IN LAST 30 DAYS: No - Related Data Allergies/Adverse Reactions: hydroxyzine HCl [From Vistaril] Allergy (Severe, Verified 10/01/18 15:48) swelling hydroxyzine pamoate [From Vistaril] Allergy (Severe, Verified 10/01/18 15:48) swelling strawberry Allergy (Intermediate, Verified 10/01/18 15:48) Urticaria Past Medical History - Past Medical History Cardiac Medical History: Reports: Hx Hypercholesterolemia, Hx Hypertension Denies: Hx Atrial Fibrillation, Hx Congestive Heart Failure, Hx Coronary Artery Disease, Hx Heart Attack, Hx Peripheral Vascular Disease, Hx Heart Murmur Pulmonary Medical History: Reports: Hx Pneumonia - hx, Hx Sleep Apnea - USES MACHINE AT HOME "SOMETIMES" Denies: Hx Asthma, Hx Bronchitis, Hx COPD, Hx Tuberculosis Neurological Medical History: Denies: Hx Cerebrovascular Accident, Hx Seizures Endocrine Medical History: Reports: Hx Diabetes Mellitus Type 2. Denies: Hx Graves' Disease, Hx Hyperthyroidism, Hx Hypothyroidism Renal/ Medical History: Denies: Hx Peritoneal Dialysis Malignancy Medical History: Denies: Hx Leukemia GI Medical History: Reports: Hx Gastroesophageal Reflux Disease Musculoskeltal Medical History: Denies Hx Arthritis, Denies Hx Fibromyalgia, Denies Hx Multiple Sclerosis, Denies Hx Muscular Dystrophy, Denies Hx Systemic Lupus Erythematosus Psychiatric Medical History: Reports: Hx Dementia, Hx Depression Denies: Hx Bipolar Disorder, Hx Post Traumatic Stress Disorder, Hx Schizophrenia Traumatic Medical History: Denies: Hx Fractures Infectious Medical History: Denies: Hx HIV Past Surgical History: Reports: Hx Cholecystectomy, Hx Hysterectomy. Denies: Hx Pacemaker - Immunizations Hx Diphtheria, Pertussis, Tetanus Vaccination: Yes Physical Exam - Vital signs Vitals: Temp Pulse Resp BP Pulse Ox 100.6 F H 88 18 122/60 92 10/01/18 15:56 10/01/18 15:56 10/01/18 15:56 10/01/18 15:56 10/01/18 15:56 - General General appearance: Appears well, Alert In distress: None Notes: Abdomen soft, nontender Course - Vital Signs Vital signs: Temp Pulse Resp BP Pulse Ox 100.6 F H 88 18 122/60 92 10/01/18 15:56 10/01/18 15:56 10/01/18 15:56 10/01/18 15:56 10/01/18 15:56 Doctor's Discharge - Discharge Referrals: AZAEL MCKENZIE PA [Primary Care Provider] - Follow up as needed
--- NOTE | 2018-10-01 17:37 | RADIOLOGY REPORT (SQ) ---
EXAM DESCRIPTION: CHEST 2 VIEWS COMPLETED DATE/TIME: 10/01/2018 5:22 pm REASON FOR STUDY: fever COMPARISON: 03/27/2014 TECHNIQUE: Frontal and lateral radiographic views of the chest acquired. NUMBER OF VIEWS: Two view. LIMITATIONS: None. FINDINGS: LUNGS AND PLEURA: No pneumothorax. Similar chronic interstitial changes. No consolidatio n or pleural effusion. MEDIASTINUM AND HILAR STRUCTURES: Stable. HEART AND VASCULAR STRUCTURES: Stable. BONES: No acute findings. HARDWARE: None in the chest. OTHER: No other significant finding. IMPRESSION: NO ACUTE FINDINGS. TECHNICAL DOCUMENTATION: JOB ID: [id number] [employer]- All Rights Reserved Reading location - IP/workstation name: [employer]
[2018-10-01 18:04] LABS: HEMOGLOBIN 12.6 g/dL (12.0-15.5); MEAN CORPUSCULAR HEMOGLOBIN 31.8 pg (27.0-33.4); MEAN CORPUSCULAR HGB CONC 33.2 g/dL (32.0-36.0); MEAN CORPUSCULAR VOLUME 96 fl (80-97); PLATELET COUNT 101 10^3/uL (150-450); RED BLOOD COUNT 3.96 10^6/uL (3.72-5.28); RED CELL DISTRIBUTION WIDTH 13.3 % (11.5-14.0); WHITE BLOOD COUNT 13.5 10^3/uL (4.0-10.5)
[2018-10-01 18:07] LABS: ALANINE AMINOTRANSFERASE 29 U/L (9-52); ALKALINE PHOSPHATASE 153 U/L (38-126); ANION GAP 14 (5-19); ASPARTATE AMINO TRANSFERASE 25 U/L (14-36); BILIRUBIN,DIRECT 0.5 mg/dL (0.0-0.4); BILIRUBIN,TOTAL 0.8 mg/dL (0.2-1.3); BLOOD UREA NITROGEN 40 mg/dL (7-20); CALCIUM 8.7 mg/dL (8.4-10.2); CARBON DIOXIDE 23 mmol/L (22-30); CHLORIDE 99 mmol/L (98-107); GLUCOSE 201 mg/dL (75-110); POTASSIUM 3.8 mmol/L (3.6-5.0); SODIUM 135.9 mmol/L (137-145); TOTAL PROTEIN 6.7 g/dL (6.3-8.2)
[2018-10-01] MEDS ORDERED: RINGERS SOLUTION,LACTATED 1,000 ML IV ONE ×2 (18:25→20:43)
[2018-10-01 18:40] LABS: ABSOLUTE LYMPHOCYTES# (MANUAL) 0.5 10^3/uL (0.5-4.7); ABSOLUTE MONOCYTES # (MANUAL) 0.8 10^3/uL (0.1-1.4); ABSOLUTE NEUTROPHILS# (MANUAL) 12.2 10^3/uL (1.7-8.2); BAND NEUTROPHILS % (MANUAL) 4 % (3-5); BASOPHILS % (MANUAL) 0 % (0-2); EOSINOPHILS % (MANUAL) 0 % (0-6); LYMPHOCYTES % (MANUAL) 4 % (13-45); MONOCYTES % (MANUAL) 6 % (3-13); SEGMENTED NEUTROPHILS % (MAN) 86 % (42-78); TOTAL CELLS COUNTED 100
[2018-10-01 18:42] LABS: HYPOCHROMASIA SLIGHT; PLATELET COMMENT ADEQUATE
[2018-10-01] MEDS ORDERED: CEFEPIME 2 GM/D5W RTU 2 GM/50 ML RTUPB IV ONE (20:44)
[2018-10-01 22:04] LABS: APPEARANCE,URINE CLOUDY; BILIRUBIN,URINE NEGATIVE (NEGATIVE); COLOR,URINE YELLOW; GLUCOSE, URINE NEGATIVE (NEGATIVE); KETONES,URINE NEGATIVE (NEGATIVE); LEUKOCYTE ESTERASE,URINE LARGE (NEGATIVE); NITRITE,URINE NEGATIVE (NEGATIVE); PROTEIN,URINE 100 mg/dL (NEGATIVE); UROBILINOGEN,URINE NEGATIVE mg/dL (<2.0)
--- NOTE | 2018-10-01 22:27 | ER Document Report ---
ED General - General Chief Complaint: Fever Stated Complaint: FEVER Time Seen by Provider: 10/01/18 16:52 Cannot obtain history due to: Dementia Notes: Patient is an 83-year-old female with a past medical history of dementia who presents due to fever, nausea and vomiting. Patient is not able to provide any meaningful history secondary to her advanced dementia. Her daughter at bedside states that when she woke up this morning she was fine. She took her to an adult daycare and apparently staff there reports that shortly after arrival the patient went to the back room where there is a bed and stayed in the bed most of the day. They did contact her stating that she was not acting herself, daughter came to get the patient, found her to be febrile and patient was subsequently transported to the emergency department. History of similar symptoms in the past and the patient had a urinary tract infection. No obvious exacerbating or alleviating factors. TRAVEL OUTSIDE OF THE [place] IN LAST 30 DAYS: No - Related Data Allergies/Adverse Reactions: hydroxyzine HCl [From Vistaril] Allergy (Severe, Verified 10/01/18 15:48) swelling hydroxyzine pamoate [From Vistaril] Allergy (Severe, Verified 10/01/18 15:48) swelling strawberry Allergy (Intermediate, Verified 10/01/18 15:48) Urticaria Past Medical History - General Information source: Relative - Social History Smoking Status: Former Smoker Chew tobacco use (# tins/day): No Frequency of alcohol use: None Drug Abuse: None Lives with: Family Family History: Reviewed & Not Pertinent Patient has suicidal ideation: No Patient has homicidal ideation: No - Past Medical History Cardiac Medical History: Reports: Hx Hypercholesterolemia, Hx Hypertension Denies: Hx Atrial Fibrillation, Hx Congestive Heart Failure, Hx Coronary Artery Disease, Hx Heart Attack, Hx Peripheral Vascular Disease, Hx Heart Murmur Pulmonary Medical History: Reports: Hx Pneumonia - hx, Hx Sleep Apnea - USES MACHINE AT HOME "SOMETIMES" Denies: Hx Asthma, Hx Bronchitis, Hx COPD, Hx Tuberculosis Neurological Medical History: Denies: Hx Cerebrovascular Accident, Hx Seizures Endocrine Medical History: Reports: Hx Diabetes Mellitus Type 2. Denies: Hx Graves' Disease, Hx Hyperthyroidism, Hx Hypothyroidism Renal/ Medical History: Denies: Hx Peritoneal Dialysis Malignancy Medical History: Denies: Hx Leukemia GI Medical History: Reports: Hx Gastroesophageal Reflux Disease Musculoskeletal Medical History: Denies Hx Arthritis, Denies Hx Fibromyalgia, Denies Hx Multiple Sclerosis, Denies Hx Muscular Dystrophy, Denies Hx Systemic Lupus Erythematosus Psychiatric Medical History: Reports: Hx Dementia, Hx Depression Denies: Hx Bipolar Disorder, Hx Post Traumatic Stress Disorder, Hx Schizoph tai Traumatic Medical History: Denies: Hx Fractures Infectious Medical History: Denies: Hx HIV Past Surgical History: Reports: Hx Cholecystectomy, Hx Hysterectomy. Denies: Hx Pacemaker - Immunizations Hx Diphtheria, Pertussis, Tetanus Vaccination: Yes Hx Pneumococcal Vaccination: 02/22/10 Review of Systems - Review of Systems Notes: Constitutional: Positive for fever. HENT: Negative for sore throat. Eyes: Negative for visual changes. Cardiovascular: Negative for chest pain. Respiratory: Negative for shortness of breath. Gastrointestinal: Negative for abdominal pain, positive for nausea and vomiting Genitourinary: Negative for dysuria. Musculoskeletal: Negative for back pain. Skin: Negative for rash. Neurological: Negative for headaches, weakness or numbness. 10 point ROS negative except as marked above and in HPI. Physical Exam - Vital signs Vitals: Temp Pulse Resp BP Pulse Ox 100.6 F H 88 18 122/60 92 10/01/18 15:56 10/01/18 15:56 10/01/18 15:56 10/01/18 15:56 10/01/18 15:56 Interpretation: Febrile Notes: PHYSICAL EXAMINATION: GENERAL: Elderly female in no acute distress HEAD: Atraumatic, normocephalic. EYES: Pupils equal round and reactive to light, extraocular movements intact, sclera anicteric, conjunctiva are normal. ENT: nares patent, oropharynx clear without exudates. Mildly dry mucous membranes. NECK: Normal range of motion, supple without lymphadenopathy LUNGS: Breath sounds clear to auscultation bilaterally and equal. No wheezes rales or rhonchi. HEART: Regular rate and rhythm without murmurs ABDOMEN: Soft, nontender, normoactive bowel sounds. No guarding, no rebound. No masses appreciated. EXTREMITIES: Normal range of motion, no pitting or edema. No cyanosis. NEUROLOGICAL: No focal neurological deficits. Moves all extremities spontaneously and on command. PSYCH: Pleasant and contact oriented only to name SKIN: Warm, Dry, normal turgor, no rashes or lesions noted. Course - Re-evaluation Re-evalutation: 10/01/18 22:26 Patient presents from primary care physician's office Dr. Sinclair due to concerns of sepsis. Patient is febrile, has a leukocytosis although is not hypotensive nor tachycardic. Source appears to be pyelonephritis based on urine consistent with this diagnosis with white blood cell clumps, positive leuks, 3+ bacteria. Patient's labs also demonstrate a prerenal azotemia, patient has a GFR down to 18 which is not normal for this patient. She has been started on IV fluid resuscitation, IV cefepime initiated. Patient is otherwise well in appearance, no focal findings on exam other than moderate dehydration. I discussed with Dr. Dill who is covering for Dr. Sinclair who is accepted the patient to [facility]. - Vital Signs Vital signs: Temp Pulse Resp BP Pulse Ox 98.3 F 102 H 18 126/56 H 97 10/02/18 01:11 10/02/18 02:00 10/02/18 01:11 10/02/18 01:11 10/02/18 01:11 - Laboratory Result Diagrams: 10/01/18 17:30 10/01/18 17:30 Laboratory results interpreted by me: 10/01/18 10/01/18 10/01/18 17:30 17:30 21:39 WBC 13.5 H Plt Count 101 L Seg Neuts % (Manual) 86 H Lymphocytes % (Manual) 4 L Abs Neuts (Manual) 12.2 H Sodium 135.9 L BUN 40 H Creatinine 2.59 H Est GFR ( Amer) 21 L Est GFR (Non-Af Amer) 18 L Glucose 201 H Direct Bilirubin 0.5 H Alkaline Phosphatase 153 H Urine Protein 100 H Urine Blood SMALL H Ur Leukocyte Esterase LARGE H Urine Ascorbic Acid 40 H Discharge - Discharge Clinical Impression: Pyelonephritis Sepsis Qualifiers: Sepsis type: sepsis due to unspecified organism Qualified Code(s): A41.9 - Sepsis, unspecified organism Acute renal failure Qualifiers: Acute renal failure type: unspecified Qualified Code(s): N17.9 - Acute kidney failure, unspecified Condition: Fair Disposition: ADMITTED INPATIENT Admitting Provider: Aniyah Unit Admitted: [facility]
[2018-10-02] MEDS: NORMAL SALINE 1000 ML 1,000 ML IV PRN ×2 (06:52→18:13)
[2018-10-02] MEDS ORDERED: DEXTROSE 50%-WATER SYRINGE 25 GM/50 ML DOSE IV PRN (07:00)
[2018-10-02] MEDS ORDERED: DEXTROSE 50%-WATER SYRINGE 12.5 GM/25 ML DOSE IV PRN (07:00)
[2018-10-02] MEDS ORDERED: DEXTROSE 40% GEL 15 GM TUBE X 2 PO PRN (07:00)
[2018-10-02] MEDS ORDERED: GLUCAGON,HUMAN RECOMB 1 MG INJ IM PRN (07:00)
[2018-10-02] MEDS ORDERED: DEXTROSE 40% GEL 15 GM TUBE PO PRN (07:00)
[2018-10-02 07:14] LABS: HEMATOCRIT 34.3 % (36.0-47.0); HEMOGLOBIN 11.4 g/dL (12.0-15.5); MEAN CORPUSCULAR HEMOGLOBIN 31.9 pg (27.0-33.4); MEAN CORPUSCULAR HGB CONC 33.3 g/dL (32.0-36.0); MEAN CORPUSCULAR VOLUME 96 fl (80-97); RED BLOOD COUNT 3.58 10^6/uL (3.72-5.28); RED CELL DISTRIBUTION WIDTH 13.5 % (11.5-14.0); WHITE BLOOD COUNT 17.4 10^3/uL (4.0-10.5)
[2018-10-02 07:30] LABS: ALANINE AMINOTRANSFERASE 30 U/L (9-52); ALBUMIN 3.4 g/dL (3.5-5.0); ALKALINE PHOSPHATASE 114 U/L (38-126); ANION GAP 12 (5-19); ASPARTATE AMINO TRANSFERASE 29 U/L (14-36); BILIRUBIN,DIRECT 0.6 mg/dL (0.0-0.4); BILIRUBIN,TOTAL 0.8 mg/dL (0.2-1.3); BLOOD UREA NITROGEN 50 mg/dL (7-20); CALCIUM 8.6 mg/dL (8.4-10.2); CARBON DIOXIDE 23 mmol/L (22-30); CHLORIDE 104 mmol/L (98-107); GLUCOSE 141 mg/dL (75-110); POTASSIUM 4.1 mmol/L (3.6-5.0); SODIUM 138.7 mmol/L (137-145)
[2018-10-02 07:58] LABS: PLATELET COUNT 74 10^3/uL (150-450)
[2018-10-02 08:01] LABS: ABSOLUTE LYMPHOCYTES# (MANUAL) 0.5 10^3/uL (0.5-4.7); ABSOLUTE MONOCYTES # (MANUAL) 1.9 10^3/uL (0.1-1.4); BASOPHILS % (MANUAL) 0 % (0-2); EOSINOPHILS % (MANUAL) 0 % (0-6); LYMPHOCYTES % (MANUAL) 3 % (13-45); MONOCYTES % (MANUAL) 11 % (3-13); SEGMENTED NEUTROPHILS % (MAN) 86 % (42-78); TOTAL CELLS COUNTED 100
[2018-10-02 08:15] LABS: PLATELET COMMENT DECREASED; RBC MORPHOLOGY COMMENT NORMO-CYTIC/CHROMIC; TOXIC GRANULATION SLIGHT; TOXIC VACUOLATION PRESENT
[2018-10-02] MEDS: INSULIN LISPRO 100 UNIT/ML 3 ML VIAL SUBCUT SCH ×4 (08:44→23:45)
[2018-10-02] MEDS ORDERED: IPRATROPIUM/ALBUTEROL 0.5-2.5 MG/3 ML AMPUL NEB ONE (18:00)
[2018-10-02] MEDS ORDERED: IPRATROPIUM/ALBUTEROL 0.5-2.5 MG/3 ML AMPUL NEB PRN (18:01)
[2018-10-02] MEDS ORDERED: ERTAPENEM SODIUM INJ 1 GM VIAL IV PRN (18:20)
--- NOTE | 2018-10-02 18:40 | PDOC H&P ---
History of Present Illness Admission Date/PCP: 10/01/18 22:43 JOSE ENRIQUE LOVELACE MD Patient complains of: Fever History of Present Illness: VEGA MARIO is a 83 year old [address] of Dr. Lovelace who presented to the ED with daughter complaining about not been her usual self. [facility] the day of her presentation but not participating in the center activities. Center staff reported that she was sleeping on bed in the back of their activity room. Her daughter was alerted and she reported that patient had temperature of over 101F before she was transferred to the ED for further evaluation and management. Her initial evaluation in the ED was remarkable for abnormal urinalysis with leukocytosis. She was advised hospitalization for acute pyelonephirtis. Daughter admitted to inappropriate direction of perineum cleaning habit with prior incident of UTI and similar associated symptoms. Her morbidities include HTN, HLD, Diabetes Mellitus Type 2, and Gastroesophageal Reflux Disease Past Medical History Cardiac Medical History: Reports: Hyperlipidema, Hypertension Denies: Atrial Fibrillation, Congestive Heart Failure, Coronary Artery Disease, Myocardial Infarction, Peripheral Vascular Disease, Heart Murmur Pulmonary Medical History: Reports: Pneumonia - hx, Sleep Apnea - USES MACHINE AT HOME "SOMETIMES" Denies: Asthma, Bronchitis, Chronic Obstructive Pulmonary Disease (COPD), Tuberculosis Neurological Medical History: Denies: Seizures Endocrine Medical History: Reports: Diabetes Mellitus Type 2 Denies: Hyperthyroidism, Hypothyroidism Malignancy Medical History: Denies: Leukemia GI Medical History: Reports: Gastroesophageal Reflux Disease Musculoskeltal Medical History: Denies: Arthritis, Fibromyalgia Psychiatric Medical History: Reports: Dementia, Depression Denies: Bipolar Disorder, Post Traumatic Stress Disorder Hematology: Reports: Anemia Denies: Hemophilia, Sickle Cell Disease Infectious Medical History: Denies: HIV Past Surgical History Past Surgical History: Reports: Cholecystectomy, Hysterectomy Denies: Amputation, Pacemaker Social History Lives with: Family Smoking Status: Former Smoker Frequency of Alcohol Use: None Hx Recreational Drug Use: No Drugs: None Hx Prescription Drug Abuse: No - Advance Directive Resuscitation Status: Do Not Intubate Family History Family History: Reviewed & Not Pertinent Parental Family History Reviewed: Yes Children Family History Reviewed: Yes Sibling(s) Family History Reviewed.: Yes Medication/Allergy Home Medications: Atorvastatin Calcium [Lipitor 10 mg Tablet] 10 mg PO QHS 09/23/17 Clopidogrel Bisulfate [Plavix 75 mg Tablet] 75 mg PO DAILY 09/23/17 Donepezil HCl [Aricept] 10 mg PO QHS 09/23/17 Escitalopram Oxalate [Lexapro 10 mg Tablet] 20 mg PO DAILY 09/23/17 Ferrous Sulfate [Feosol 325 mg Tablet] 325 mg PO DAILY 09/23/17 Hydrochlorothiazide [Hydrodiuril 25 mg Tablet] 12.5 mg PO DAILY 09/23/17 Levothyroxine Sodium [Synthroid 0.025 mg Tablet] 0.025 mg PO Q6AM 09/23/17 Metoprolol Succinate [Toprol Xl 50 mg Tab.sr] 50 mg PO DAILY 09/23/17 Pantoprazole Sodium [Protonix] 20 mg PO DAILY 09/23/17 Valsartan [Diovan 80 mg Tablet] 80 mg PO DAILY 09/23/17 Ascorbic Acid [Vitamin C 500 mg Tablet] 500 mg PO DAILY 10/02/18 Buspirone HCl [Buspar 5 mg Tablet] 5 mg PO Q12 10/02/18 Cholecalciferol (Vitamin D3) [Vitamin D3 1000 Unit Tablet] 1,000 unit PO DAILY 10/02/18 Fexofenadine HCl [Radha] 180 mg PO DAILYP PRN 10/02/18 Insulin Glargine,Hum.rec.anlog [Lantus Insulin 100 Unit/1 ml 10 ml] 5 units SUBCUT QAM 10/02/18 Insulin Glargine,Hum.rec.anlog [Lantus Insulin 100 Unit/1 ml 10 ml] 32 units SUBCUT QHS 10/02/18 Memantine HCl 5 mg PO Q12 10/02/18 Multivitamin [Tab-A-Dong (Multiple Vitamin) Tablet] 1 tab PO DAILY 10/02/18 Nateglinide [Starlix 60 mg Tablet] 60 mg PO Q12 10/02/18 Allergies/Adverse Reactions: hydroxyzine HCl [From Vistaril] Allergy (Severe, Verified 10/01/18 15:48) swelling hydroxyzine pamoate [From Vistaril] Allergy (Severe, Verified 10/01/18 15:48) swelling strawberry Allergy (Intermediate, Verified 10/01/18 15:48) Urticaria Review of Systems ROS unobtainable: Other - as per daughter's responses Constitutional: PRESENT: fever(s), weakness Eyes: ABSENT: visual disturbances Ears: ABSENT: hearing changes Nose, Mouth, and Throat: ABSENT: as per HPI, headache(s), mouth pain, sore throat, vertigo, other Cardiovascular: ABSENT: chest pain, dyspnea on exertion, edema, orthropnea, palpitations Respiratory: ABSENT: cough, hemoptysis Gastrointestinal: PRESENT: nausea, vomiting. ABSENT: as per HPI, abdominal pain, bloating, coffee ground emesis, constipation, diarrhea, dysphagia, heartburn, hematemesis, hematochezia, melena, other Genitourinary: ABSENT: dysuria, hematuria Musculoskeletal: PRESENT: deformity Integumentary: ABSENT: rash, wounds Neurological: PRESENT: memory loss. ABSENT: abnormal gait, abnormal speech, confusion, dizziness, focal weakness, syncope Psychiatric: ABSENT: anxiety, depression, homidical ideation, suicidal ideation Endocrine: ABSENT: cold intolerance, heat intolerance, polydipsia, polyuria Hematologic/Lymphatic: ABSENT: easy bleeding, easy bruising, lymphadenopathy Allergic/Immunologic: ABSENT: seasonal rhinorrhea Physical Exam Vital Signs: Temp Pulse Resp BP Pulse Ox 98.6 F 80 20 121/47 L 98 10/02/18 15:15 10/02/18 15:15 10/02/18 15:15 10/02/18 15:15 10/02/18 15:15 Intake & Output 10/01/18 10/02/18 10/03/18 06:59 06:59 06:59 Intake Total 2200 118 Balance 2200 118 Weight 62.6 kg Results Laboratory Results: 10/02/18 06:45 10/02/18 06:45 10/01/18 10/01/18 10/01/18 17:30 17:30 21:39 WBC 13.5 H RBC 3.96 Hgb 12.6 Hct 38.0 MCV 96 MCH 31.8 MCHC 33.2 RDW 13.3 Plt Count 101 L Seg Neutrophils % Not Reportable Lymphocytes % Not Reportable Monocytes % Not Reportable Eosinophils % Not Reportable Basophils % Not Reportable Absolute Neutrophils Not Reportable Absolute Lymphocytes Not Reportable Absolute Monocytes Not Reportable Absolute Eosinophils Not Reportable Absolute Basophils Not Reportable Sodium Potassium Chloride Carbon Dioxide Anion Gap BUN Creatinine Est GFR ( Amer) Est GFR (Non-Af Amer) Glucose Lactic Acid 2.1 Calcium Total Bilirubin AST ALT Alkaline Phosphatase Total Protein Albumin Urine Color YELLOW Urine Appearance CLOUDY Urine pH 5.0 Ur Specific [place] 1.010 Urine Protein 100 H Urine Glucose (UA) NEGATIVE Urine Ketones NEGATIVE Urine Blood SMALL H Urine Nitrite NEGATIVE Ur Leukocyte Esterase LARGE H Urine WBC (Auto) >182 Urine RBC (Auto) 4 10/02/18 10/02/18 06:45 06:45 WBC 17.4 H RBC 3.58 L Hgb 11.4 L Hct 34.3 L MCV 96 MCH 31.9 MCHC 33.3 RDW 13.5 Plt Count 74 L Seg Neutrophils % Not Reportable Lymphocytes % Not Reportable Monocytes % Not Reportable Eosinophils % Not Reportable Basophils % Not Reportable Absolute Neutrophils Not Reportable Absolute Lymphocytes Not Reportable Absolute Monocytes Not Reportable Absolute Eosinophils Not Reportable Absolute Basophils Not Reportable Sodium 138.7 Potassium 4.1 Chloride 104 Carbon Dioxide 23 Anion Gap 12 BUN 50 H Creatinine 2.62 H Est GFR ( Amer) 21 L Est GFR (Non-Af Amer) 18 L Glucose 141 H Lactic Acid Calcium 8.6 Total Bilirubin 0.8 AST 29 ALT 30 Alkaline Phosphatase 114 Total Protein 6.0 L Albumin 3.4 L Urine Color Urine Appearance Urine pH Ur Specific [place] Urine Protein Urine Glucose (UA) Urine Ketones Urine Blood Urine Nitrite Ur Leukocyte Esterase Urine WBC (Auto) Urine RBC (Auto) Impressions: Chest X-Ray 10/01/18 16:52 IMPRESSION: NO ACUTE FINDINGS. Assessment & Plan - Diagnosis (1) Pyelonephritis Is this a current diagnosis for this admission?: Yes Plan: See covering attending physician admitting orders. (2) Acute renal failure Qualifiers: Acute renal failure type: unspecified Qualified Code(s): N17.9 - Acute kidney failure, unspecified Is this a current diagnosis for this admission?: Yes Plan: See covering attending physician admitting orders. (3) Diabetes mellitus type 2 in nonobese Is this a current diagnosis for this admission?: Yes Plan: See covering attending physician admitting orders. (4) Hypertension Qualifiers: Hypertension type: essential hypertension Qualified Code(s): I10 - Essential (primary) hypertension Is this a current diagnosis for this admission?: Yes Plan: See covering attending physician admitting orders. (5) HLD (hyperlipidemia) Qualifiers: Hyperlipidemia type: unspecified Qualified Code(s): E78.5 - Hyperlipidemia, unspecified Is this a current diagnosis for this admission?: Yes Plan: See covering attending physician admitting orders. (6) GERD (gastroesophageal reflux disease) Qualifiers: Esophagitis presence: esophagitis presence not specified Qualified Code(s): K21.9 - Gastro-esophageal reflux disease without esophagitis Is this a current diagnosis for this admission?: Yes Plan: See covering attending physician admitting orders. - Time Time Spent: 50 to 70 Minutes Medications reviewed and adjusted accordingly: Yes Anticipated discharge: Home with Homehealth Within: Other - Inpatient Certification Based on my medical assessment, after consideration of the patient's comorbiditi es, presenting symptoms, or acuity I expect that the services needed warrant INPATIENT care.: Yes I certify that my determination is in accordance with my understanding of [facility]'s requirements for reasonable and necessary INPATIENT services [42 CFR 412.3e].: Yes Medical Necessity: Significant Comorbidiites Make Outpatient Treatment Too Risky, Need Close Monitoring Due to Risk of Patient Decompensation, Need For IV Fluids, Need for IV Antibiotics, Risk of Complication if Not Cared For in Hospital, Risk of Diagnosis Which Will Require Inpatient Eval/Care/Monitoring Post Hospital Care: D/C [place] [employer] Documentation - Plan Summary Plan Summary: See covering attending physician admitting orders for details of care plan. I had extensive discussion with her daughter, Leisa Nguyen, regarding resuscitation option. She will be currently made a DNI status. Copy of POA on chart.
[2018-10-02] MEDS: ERTAPENEM SODIUM 0.5 GM in NORMAL SALINE 50 ML IV SCH (19:37)
[2018-10-02] MEDS: DONEPEZIL HCL 5 MG TABLET PO SCH (21:26)
[2018-10-02] MEDS: ATORVASTATIN CALCIUM 10 MG TABLET PO SCH (21:26)
[2018-10-02] MEDS: BUSPIRONE HCL 10 MG TABLET PO SCH (21:26)
[2018-10-02] MEDS: MEMANTINE HCL 10 MG TABLET PO SCH (21:27)
[2018-10-02] MEDS ORDERED: ONDANSETRON 4 MG TAB.RAPDIS ONE (21:32)
[2018-10-02] MEDS ORDERED: CEFEPIME 1 GM/D5W RTU 1 GM/50 ML RTUPB IV SCH ×2 (22:00)
[2018-10-02] MEDS ORDERED: ONDANSETRON HCL INJ/PF 4 MG/2 ML SDV IV ONE (22:15)
[2018-10-02] MEDS ORDERED: ONDANSETRON HCL 8 MG TABLET PO ONE (22:30)
[2018-10-03] MEDS: LEVOTHYROXINE SODIUM 0.025 MG TABLET PO SCH (05:19)
[2018-10-03] MEDS: NORMAL SALINE 1000 ML 1,000 ML IV PRN ×2 (05:20→16:30)
[2018-10-03 07:54] LABS: HEMATOCRIT 28.4 % (36.0-47.0); HEMOGLOBIN 9.7 g/dL (12.0-15.5); MEAN CORPUSCULAR HEMOGLOBIN 32.4 pg (27.0-33.4); MEAN CORPUSCULAR VOLUME 95 fl (80-97); RED BLOOD COUNT 2.99 10^6/uL (3.72-5.28); RED CELL DISTRIBUTION WIDTH 13.7 % (11.5-14.0); WHITE BLOOD COUNT 14.1 10^3/uL (4.0-10.5)
[2018-10-03 08:07] LABS: ALANINE AMINOTRANSFERASE 28 U/L (9-52); ALBUMIN 2.6 g/dL (3.5-5.0); ALKALINE PHOSPHATASE 88 U/L (38-126); ANION GAP 11 (5-19); ASPARTATE AMINO TRANSFERASE 29 U/L (14-36); BILIRUBIN,DIRECT 0.3 mg/dL (0.0-0.4); BILIRUBIN,TOTAL 0.5 mg/dL (0.2-1.3); BLOOD UREA NITROGEN 45 mg/dL (7-20); CARBON DIOXIDE 22 mmol/L (22-30); CHLORIDE 106 mmol/L (98-107); GLUCOSE 150 mg/dL (75-110); POTASSIUM 3.7 mmol/L (3.6-5.0); SODIUM 138.8 mmol/L (137-145); TOTAL PROTEIN 5.1 g/dL (6.3-8.2)
[2018-10-03 08:08] LABS: PLATELET COUNT 58 10^3/uL (150-450)
[2018-10-03] MEDS: INSULIN LISPRO 100 UNIT/ML 3 ML VIAL SUBCUT SCH ×4 (08:30→21:28)
[2018-10-03 08:33] LABS: ABSOLUTE LYMPHOCYTES# (MANUAL) 0.7 10^3/uL (0.5-4.7); ABSOLUTE MONOCYTES # (MANUAL) 0.4 10^3/uL (0.1-1.4); BAND NEUTROPHILS % (MANUAL) 3 % (3-5); BASOPHILS % (MANUAL) 0 % (0-2); EOSINOPHILS % (MANUAL) 0 % (0-6); LYMPHOCYTES % (MANUAL) 5 % (13-45); MONOCYTES % (MANUAL) 3 % (3-13); PLATELET COMMENT DECREASED; PLATELET LARGE PRESENT; SEGMENTED NEUTROPHILS % (MAN) 89 % (42-78); TOTAL CELLS COUNTED 100; TOXIC VACUOLATION PRESENT
[2018-10-03] MEDS: MULTIVITAMIN TABLET PO SCH (09:29)
[2018-10-03] MEDS: CLOPIDOGREL BISULFATE 75 MG TABLET PO SCH (09:29)
[2018-10-03] MEDS: FERROUS SULFATE 325 MG TABLET PO SCH (09:29)
[2018-10-03] MEDS: MEMANTINE HCL 10 MG TABLET PO SCH ×2 (09:29→21:46)
[2018-10-03] MEDS: CHOLECALCIFEROL (D3) 1,000 UNIT TABLET PO SCH (09:29)
[2018-10-03] MEDS: ESCITALOPRAM OXALATE 10 MG TABLET PO SCH (09:29)
[2018-10-03] MEDS: BUSPIRONE HCL 10 MG TABLET PO SCH ×2 (09:30→21:46)
[2018-10-03] MEDS: VALSARTAN 80 MG TABLET PO SCH (09:30)
[2018-10-03] MEDS: METOPROLOL SUCCINATE 50 MG TAB.SR.24H PO SCH (09:30)
[2018-10-03] MEDS: ERTAPENEM SODIUM 0.5 GM in NORMAL SALINE 50 ML IV SCH (17:11)
--- NOTE | 2018-10-03 18:22 | PDOC PROGRESS REPORT ---
Subjective Progress Note for:: 10/03/18 Subjective:: Patient is breathing better today. No chest pain. No reported fever or chills. Tolerating oral feeding. No reported abdominal pain, nausea or vomiting Reason For Visit: SEPSIS,PYELONEPHRITIS,ACUTE REANL FAILURE Physical Exam Vital Signs: Temp Pulse Resp BP Pulse Ox 98.7 F 83 19 135/63 H 93 10/03/18 15:22 10/03/18 15:22 10/03/18 15:22 10/03/18 15:22 10/03/18 15:22 Intake & Output 10/02/18 10/03/18 10/04/18 06:59 06:59 06:59 Intake Total 0 3 2059 Balance 2202522 Weight 62.6 kg 64.3 kg General appearance: PRESENT: no acute distress, well-developed, well-nourished Head exam: PRESENT: atraumatic, normocephalic Eye exam: PRESENT: conjunctiva pink. ABSENT: scleral icterus Ear exam: PRESENT: normal external ear exam Mouth exam: PRESENT: moist Respiratory exam: PRESENT: clear to auscultation cheli, decreased breath sounds - at lung bases Cardiovascular exam: PRESENT: RRR. ABSENT: diastolic murmur, rubs, systolic murmur Vascular exam: ABSENT: pallor GI/Abdominal exam: PRESENT: normal bowel sounds, soft. ABSENT: distended, guarding, mass, organolmegaly, rebound, tenderness Extremities exam: ABSENT: pedal edema Neurological exam: PRESENT: alert, awake Psychiatric exam: PRESENT: appropriate affect, normal mood. ABSENT: homicidal ideation, suicidal ideation Skin exam: PRESENT: dry, warm Results Laboratory Results: 10/03/18 07:35 10/03/18 07:35 10/03/18 10/03/18 07:35 07:35 WBC 14.1 H RBC 2.99 L Hgb 9.7 L Hct 28.4 L MCV 95 MCH 32.4 MCHC 34.0 RDW 13.7 Plt Count 58 L Seg Neutrophils % Not Reportable Lymphocytes % Not Reportable Monocytes % Not Reportable Eosinophils % Not Reportable Basophils % Not Reportable Absolute Neutrophils Not Reportable Absolute Lymphocytes Not Reportable Absolute Monocytes Not Reportable Absolute Eosinophils Not Reportable Absolute Basophils Not Reportable Sodium 138.8 Potassium 3.7 Chloride 106 Carbon Dioxide 22 Anion Gap 11 BUN 45 H Creatinine 2.01 H Est GFR ( Amer) 29 L Est GFR (Non-Af Amer) 24 L Glucose 150 H Calcium 8.0 L Total Bilirubin 0.5 AST 29 ALT 28 Alkaline Phosphatase 88 Total Protein 5.1 L Albumin 2.6 L 10/01/18 21:39 Clean Catch Midstream Urine Culture - Final Escherichia Coli Impressions: Chest X-Ray 10/01/18 16:52 IMPRESSION: NO ACUTE FINDINGS. Assessment & Plan - Diagnosis (1) E. coli pyelonephritis Is this a current diagnosis for this admission?: Yes Plan: Continue IV Invanz coverage. (2) Acute renal failure Qualifiers: Acute renal failure type: unspecified Qualified Code(s): N17.9 - Acute kidney failure, unspecified Is this a current diagnosis for this admission?: Yes (3) Diabetes mellitus type 2 in nonobese Is this a current diagnosis for this admission?: Yes (4) Hypertension Qualifiers: Hypertension type: essential hypertension Qualified Code(s): I10 - Essential (primary) hypertension Is this a current diagnosis for this admission?: Yes (5) HLD (hyperlipidemia) Qualifiers: Hyperlipidemia type: unspecified Qualified Code(s): E78.5 - Hyperlipidemia, unspecified Is this a current diagnosis for this admission?: Yes (6) GERD (gastroesophageal reflux disease) Qualifiers: Esophagitis presence: esophagitis presence not specified Qualified Code(s): K21.9 - Gastro-esophageal reflux disease without esophagitis Is this a current diagnosis for this admission?: Yes (7) Gram-negative sepsis, unspecified Is this a current diagnosis for this admission?: Yes Plan: Continue IV Invanz coverage. Follow up on final blood culture organism identification and sensitivity. - Time Time Spent with patient: 25-34 minutes Medications reviewed and adjusted accordingly: Yes Anticipated discharge: Home with Homehealth Within: Other - Inpatient Certification Based on my medical assessment, after consideration of the patient's comorbidities, presenting symptoms, or acuity I expect that the services needed warrant INPATIENT care.: Yes I certify that my determination is in accordance with my understanding of Medicare's requirements for reasonable and necessary INPATIENT services [42 CFR 412.3e].: Yes Medical Necessity: Significant Comorbidiites Make Outpatient Treatment Too Risky, Need Close Monitoring Due to Risk of Patient Decompensation, Need For IV Fluids, Need For Continuous Telemetry Monitoring, Need for Nebulizer Therapy and Monitoring of Response, Need for IV Antibiotics, Risk of Complication if Not Cared For in Hospital, Risk of Diagnosis Which Will Require Inpatient Eval/Care/Monitoring Post Hospital Care: D/C [place] Documentation - Plan Summary Plan Summary: See covering attending physician orders for care plan details.
[2018-10-03] MEDS: DONEPEZIL HCL 5 MG TABLET PO SCH (21:47)
[2018-10-03] MEDS: ATORVASTATIN CALCIUM 10 MG TABLET PO SCH (21:47)
[2018-10-04] MEDS: NORMAL SALINE 1000 ML 1,000 ML IV PRN (03:33)
[2018-10-04] MEDS: LEVOTHYROXINE SODIUM 0.025 MG TABLET PO SCH (05:36)
[2018-10-04 06:19] LABS: HEMATOCRIT 28.3 % (36.0-47.0); HEMOGLOBIN 9.7 g/dL (12.0-15.5); MEAN CORPUSCULAR HEMOGLOBIN 32.6 pg (27.0-33.4); MEAN CORPUSCULAR HGB CONC 34.2 g/dL (32.0-36.0); MEAN CORPUSCULAR VOLUME 95 fl (80-97); RED BLOOD COUNT 2.97 10^6/uL (3.72-5.28); RED CELL DISTRIBUTION WIDTH 13.3 % (11.5-14.0); WHITE BLOOD COUNT 13.1 10^3/uL (4.0-10.5)
[2018-10-04 06:34] LABS: ALANINE AMINOTRANSFERASE 32 U/L (9-52); ALBUMIN 2.7 g/dL (3.5-5.0); ALKALINE PHOSPHATASE 109 U/L (38-126); ANION GAP 10 (5-19); ASPARTATE AMINO TRANSFERASE 40 U/L (14-36); BILIRUBIN,DIRECT 0.4 mg/dL (0.0-0.4); BILIRUBIN,TOTAL 0.6 mg/dL (0.2-1.3); BLOOD UREA NITROGEN 36 mg/dL (7-20); CALCIUM 7.8 mg/dL (8.4-10.2); CARBON DIOXIDE 21 mmol/L (22-30); CHLORIDE 108 mmol/L (98-107); GLUCOSE 141 mg/dL (75-110); POTASSIUM 3.6 mmol/L (3.6-5.0); SODIUM 138.8 mmol/L (137-145); TOTAL PROTEIN 5.2 g/dL (6.3-8.2)
[2018-10-04 06:39] LABS: ABSOLUTE LYMPHOCYTES# (MANUAL) 0.5 10^3/uL (0.5-4.7); ABSOLUTE NEUTROPHILS# (MANUAL) 11.5 10^3/uL (1.7-8.2); BAND NEUTROPHILS % (MANUAL) 1 % (3-5); BASOPHILS % (MANUAL) 0 % (0-2); EOSINOPHILS % (MANUAL) 0 % (0-6); LYMPHOCYTES % (MANUAL) 4 % (13-45); MONOCYTES % (MANUAL) 8 % (3-13); SEGMENTED NEUTROPHILS % (MAN) 87 % (42-78); TOTAL CELLS COUNTED 100
[2018-10-04 06:40] LABS: PLATELET COMMENT DECREASED
[2018-10-04 06:41] LABS: RBC MORPHOLOGY COMMENT NORMO-CYTIC/CHROMIC; TOXIC GRANULATION SLIGHT
[2018-10-04 06:42] LABS: PLATELET COUNT 66 10^3/uL (150-450)
[2018-10-04] MEDS: INSULIN LISPRO 100 UNIT/ML 3 ML VIAL SUBCUT SCH ×4 (08:42→21:33)
--- NOTE | 2018-10-04 09:03 | PDOC PROGRESS REPORT ---
Subjective Progress Note for:: 10/04/18 Subjective:: Patient is currently doing well Patient is denied any chest pain to than any shortness of the breath Patient with no fever overnight Patient still need oxygen's Patient admitted for the UTI and sepsis Reason For Visit: SEPSIS,ACUTE PYELONEPHRITIS,ACUTE RENAL FAILURE Physical Exam Vital Signs: Temp Pulse Resp BP Pulse Ox 100 F 72 20 139/62 H 95 10/04/18 04:00 10/04/18 07:00 10/04/18 04:00 10/04/18 04:00 10/04/18 04:00 Intake & Output 10/03/18 10/04/18 10/05/18 06:59 06:59 06:59 Intake Total 2523 3110 Balance 2523 3110 Weight 64.3 kg 65.9 kg General appearance: PRESENT: no acute distress, well-developed, well-nourished Head exam: PRESENT: atraumatic, normocephalic Eye exam: PRESENT: conjunctiva pink, EOMI, PERRLA. ABSENT: scleral icterus Ear exam: PRESENT: normal external ear exam Mouth exam: PRESENT: moist, tongue midline Neck exam: PRESENT: full ROM. ABSENT: carotid bruit, JVD, lymphadenopathy, thyromegaly Respiratory exam: PRESENT: clear to auscultation cheli Cardiovascular exam: PRESENT: RRR. ABSENT: diastolic murmur, rubs, systolic murmur Vascular exam: PRESENT: normal capillary refill GI/Abdominal exam: PRESENT: normal bowel sounds, soft. ABSENT: distended, guarding, mass, organolmegaly, rebound, tenderness Rectal exam: PRESENT: deferred Extremities exam: ABSENT: pedal edema Neurological exam: PRESENT: alert, awake, oriented to person, oriented to place. ABSENT: motor sensory deficit Psychiatric exam: PRESENT: appropriate affect, normal mood. ABSENT: homicidal ideation, suicidal ideation Skin exam: PRESENT: dry, intact, warm. ABSENT: cyanosis, rash Results Laboratory Results: 10/04/18 05:34 10/04/18 05:34 10/04/18 10/04/18 05:34 05:34 WBC 13.1 H RBC 2.97 L Hgb 9.7 L Hct 28.3 L MCV 95 MCH 32.6 MCHC 34.2 RDW 13.3 Plt Count 66 L Seg Neutrophils % Not Reportable Lymphocytes % Not Reportable Monocytes % Not Reportable Eosinophils % Not Reportable Basophils % Not Reportable Absolute Neutrophils Not Reportable Absolute Lymphocytes Not Reportable Absolute Monocytes Not Reportable Absolute Eosinophils Not Reportable Absolute Basophils Not Reportable Sodium 138.8 Potassium 3.6 Chloride 108 H Carbon Dioxide 21 L Anion Gap 10 BUN 36 H Creatinine 1.70 H Est GFR ( Amer) 35 L Est GFR (Non-Af Amer) 29 L Glucose 141 H Calcium 7.8 L Total Bilirubin 0.6 AST 40 H ALT 32 Alkaline Phosphatase 109 Total Protein 5.2 L Albumin 2.7 L 10/01/18 21:39 Clean Catch Midstream Urine Culture - Final Escherichia Coli Impressions: Chest X-Ray 10/01/18 16:52 IMPRESSION: NO ACUTE FINDINGS. Assessment & Plan - Diagnosis (1) E. coli pyelonephritis Is this a current diagnosis for this admission?: Yes Plan: Continues to IV Invanz (2) Acute renal failure Qualifiers: Acute renal failure type: unspecified Qualified Code(s): N17.9 - Acute kidney failure, unspecified Is this a current diagnosis for this admission?: Yes Plan: Currently all resolving We will get the ultrasound for the kidney (3) History of cerebrovascular disease Is this a current diagnosis for this admission?: Yes (4) Diabetes mellitus type 2 in nonobese Is this a current diagnosis for this admission?: Yes (5) GERD (gastroesophageal reflux disease) Qualifiers: Esophagitis presence: esophagitis presence not specified Qualified Code(s): K21.9 - Gastro-esophageal reflux disease without esophagitis Is this a current diagnosis for this admission?: Yes (6) Hypertension Qualifiers: Hypertension type: essential hypertension Qualified Code(s): I10 - Essential (primary) hypertension Is this a current diagnosis for this admission?: Yes (7) Dementia Qualifiers: Dementia type: unspecified type Dementia behavioral disturbance: with behavioral disturbance Qualified Code(s): F03.91 - Unspecified dementia with behavioral disturbance Is this a current diagnosis for this admission?: Yes (8) Depression Qualifiers: Depression Type: major depressive disorder Is this a current diagnosis for this admission?: Yes (9) Anxiety disorder Qualifiers: Anxiety disorder type: generalized anxiety disorder Qualified Code(s): F41.1 - Generalized anxiety disorder Is this a current diagnosis for this admission?: Yes - Time Time Spent with patient: 15-24 minutes Medications reviewed and adjusted accordingly: Yes Anticipated discharge: SNF Within: Other - Inpatient Certification Based on my medical assessment, after consideration of the patient's comorbidities, presenting symptoms, or acuity I expect that the services needed warrant INPATIENT care.: Yes I certify that my determination is in accordance with my understanding of Medicare's requirements for reasonable and necessary INPATIENT services [42 CFR 412.3e].: Yes - Plan Summary Plan Summary: We will get the renal ultrasound We also get the chest x-ray Cut down the IV fluid Physical therapy evaluations
[2018-10-04] MEDS: BUSPIRONE HCL 10 MG TABLET PO SCH ×2 (10:29→21:31)
[2018-10-04] MEDS: ESCITALOPRAM OXALATE 10 MG TABLET PO SCH (10:29)
[2018-10-04] MEDS: MULTIVITAMIN TABLET PO SCH (10:30)
[2018-10-04] MEDS: CLOPIDOGREL BISULFATE 75 MG TABLET PO SCH (10:30)
[2018-10-04] MEDS: CHOLECALCIFEROL (D3) 1,000 UNIT TABLET PO SCH (10:30)
[2018-10-04] MEDS: FERROUS SULFATE 325 MG TABLET PO SCH (10:30)
[2018-10-04] MEDS: MEMANTINE HCL 10 MG TABLET PO SCH ×2 (10:30→21:32)
[2018-10-04] MEDS: METOPROLOL SUCCINATE 50 MG TAB.SR.24H PO SCH (10:30)
[2018-10-04] MEDS: VALSARTAN 80 MG TABLET PO SCH (10:38)
--- NOTE | 2018-10-04 10:55 | RADIOLOGY REPORT (SQ) ---
EXAM DESCRIPTION: CHEST SINGLE VIEW COMPLETED DATE/TIME: 10/04/2018 10:23 am REASON FOR STUDY: sob COMPARISON: 10/01/2018 EXAM PARAMETERS: NUMBER OF VIEWS: One view. TECHNIQUE: Single frontal radiographic view of the chest acquired. RADIATION DOSE: NA LIMITATIONS: None. FINDINGS: LUNGS AND PLEURA: There is a left pleural effusion. MEDIASTINUM AND HILAR STRUCTURES: No masses. Contour normal. HEART AND VASCULAR STRUCTURES: Heart normal in size. Normal vasculature. BONES: No acute findings. HARDWARE: None in the chest. OTHER: No other significant finding. IMPRESSION: Left pleural effusion. TECHNICAL DOCUMENTATION: JOB ID: [id number] [employer]- All Rights Reserved Reading location - IP/workstation name: [email or web address]
[2018-10-04] MEDS: ERTAPENEM SODIUM 0.5 GM in NORMAL SALINE 50 ML IV SCH (17:38)
[2018-10-04] MEDS: ATORVASTATIN CALCIUM 10 MG TABLET PO SCH (21:31)
[2018-10-04] MEDS: DONEPEZIL HCL 5 MG TABLET PO SCH (21:32)
[2018-10-05] MEDS: LEVOTHYROXINE SODIUM 0.025 MG TABLET PO SCH (05:11)
[2018-10-05 05:18] LABS: ANION GAP 9 (5-19); BLOOD UREA NITROGEN 31 mg/dL (7-20); CALCIUM 8.4 mg/dL (8.4-10.2); CARBON DIOXIDE 22 mmol/L (22-30); CHLORIDE 108 mmol/L (98-107); GLUCOSE 124 mg/dL (75-110); POTASSIUM 3.5 mmol/L (3.6-5.0); SODIUM 139.1 mmol/L (137-145)
[2018-10-05 05:20] LABS: ABSOLUTE EOSINOPHILS # (AUTO) 0.1 10^3/uL (0.0-0.6); ABSOLUTE LYMPHOCYTES (AUTO) 0.7 10^3/uL (0.5-4.7); ABSOLUTE MONOCYTES (AUTO) 0.9 10^3/uL (0.1-1.4); ABSOLUTE NEUT (AUTO) 7.8 10^3/uL (1.7-8.2); BASOPHILS % (AUTO) 0.1 % (0-2); HEMATOCRIT 28.7 % (36.0-47.0); HEMOGLOBIN 9.9 g/dL (12.0-15.5); LYMPHOCYTES % (AUTO) 7.2 % (13-45); MEAN CORPUSCULAR HEMOGLOBIN 32.6 pg (27.0-33.4); MEAN CORPUSCULAR HGB CONC 34.4 g/dL (32.0-36.0); MEAN CORPUSCULAR VOLUME 95 fl (80-97); MONOCYTES % (AUTO) 9.9 % (3-13); RED BLOOD COUNT 3.02 10^6/uL (3.72-5.28); RED CELL DISTRIBUTION WIDTH 13.8 % (11.5-14.0); SEGMENTED NEUTROPHILS % (AUTO) 81.8 % (42-78); TOTAL CELLS COUNTED % (AUTO) 100 %; WHITE BLOOD COUNT 9.5 10^3/uL (4.0-10.5)
[2018-10-05 05:48] LABS: PLATELET COUNT 74 10^3/uL (150-450)
[2018-10-05] MEDS ORDERED: POTASSIUM CHLORIDE 10 MEQ CAPSULE.ER PO ONE (06:39)
--- NOTE | 2018-10-05 08:37 | PDOC PROGRESS REPORT ---
Subjective Progress Note for:: 10/05/18 Subjective:: Patient is currently doing fair Patients walk with the physical therapy Patient still requires oxygen Patient's chest x-ray suggest left-sided pleural effusions Patient is denied any chest pain denied any shortness of the breath Patient had a stress test done last year with EF was 71%'s Reason For Visit: SEPSIS,ACUTE PYELONEPHRITIS,ACUTE RENAL FAILURE Physical Exam Vital Signs: Temp Pulse Resp BP Pulse Ox 98.6 F 90 20 169/73 H 98 10/05/18 08:15 10/05/18 08:15 10/05/18 08:15 10/05/18 08:15 10/05/18 08:15 Intake & Output 10/04/18 10/05/18 10/06/18 06:59 06:59 06:59 Intake Total 3110 1675 Balance 3110 1675 Weight 65.9 kg 64.8 kg General appearance: PRESENT: no acute distress, well-developed, well-nourished Head exam: PRESENT: atraumatic, normocephalic Eye exam: PRESENT: conjunctiva pink, EOMI, PERRLA. ABSENT: scleral icterus Ear exam: PRESENT: normal external ear exam Mouth exam: PRESENT: moist, tongue midline Neck exam: PRESENT: full ROM. ABSENT: carotid bruit, JVD, lymphadenopathy, thyromegaly Respiratory exam: PRESENT: clear to auscultation cheli Cardiovascular exam: PRESENT: RRR. ABSENT: diastolic murmur, rubs, systolic murmur Vascular exam: PRESENT: normal capillary refill GI/Abdominal exam: PRESENT: normal bowel sounds, soft. ABSENT: distended, guarding, mass, organolmegaly, rebound, tenderness Rectal exam: PRESENT: deferred Musculoskeletal exam: PRESENT: ambulatory Neurological exam: PRESENT: alert, awake, oriented to person, oriented to place, oriented to time, oriented to situation, CN II-XII grossly intact. ABSENT: motor sensory deficit Psychiatric exam: PRESENT: appropriate affect, normal mood. ABSENT: homicidal ideation, suicidal ideation Skin exam: PRESENT: dry, intact, warm. ABSENT: cyanosis, rash Results Laboratory Results: 10/05/18 04:13 10/05/18 04:13 10/05/18 10/05/18 04:13 04:13 WBC 9.5 RBC 3.02 L Hgb 9.9 L Hct 28.7 L MCV 95 MCH 32.6 MCHC 34.4 RDW 13.8 Plt Count 74 L Seg Neutrophils % 81.8 H Lymphocytes % 7.2 L Monocytes % 9.9 Eosinophils % 1.0 Basophils % 0.1 Absolute Neutrophils 7.8 Absolute Lymphocytes 0.7 Absolute Monocytes 0.9 Absolute Eosinophils 0.1 Absolute Basophils 0.0 Sodium 139.1 Potassium 3.5 L Chloride 108 H Carbon Dioxide 22 Anion Gap 9 BUN 31 H Creatinine 1.60 H Est GFR ( Amer) 37 L Est GFR (Non-Af Amer) 31 L Glucose 124 H Calcium 8.4 10/01/18 20:25 Blood Blood Culture - Final Escherichia Coli 10/01/18 17:30 Blood Blood Culture - Final Escherichia Coli Impressions: Chest X-Ray 10/04/18 00:00 IMPRESSION: Left pleural effusion. Assessment & Plan - Diagnosis (1) E. coli pyelonephritis Is this a current diagnosis for this admission?: Yes Plan: Continues to IV Invanz (2) Acute renal failure Qualifiers: Acute renal failure type: unspecified Qualified Code(s): N17.9 - Acute kidney failure, unspecified Is this a current diagnosis for this admission?: Yes Plan: Currently all resolving We will get the ultrasound for the kidney (3) History of cerebrovascular disease Is this a current diagnosis for this admission?: Yes (4) Diabetes mellitus type 2 in nonobese Is this a current diagnosis for this admission?: Yes (5) GERD (gastroesophageal reflux disease) Qualifiers: Esophagitis presence: esophagitis presence not specified Qualified Code(s): K21.9 - Gastro-esophageal reflux disease without esophagitis Is this a current diagnosis for this admission?: Yes (6) Hypertension Qualifiers: Hypertension type: essential hypertension Qualified Code(s): I10 - Essential (primary) hypertension Is this a current diagnosis for this admission?: Yes (7) Dementia Qualifiers: Dementia type: unspecified type Dementia behavioral disturbance: with behavioral disturbance Qualified Code(s): F03.91 - Unspecified dementia with behavioral disturbance Is this a current diagnosis for this admission?: Yes (8) Depression Qualifiers: Depression Type: major depressive disorder Is this a current diagnosis for this admission?: Yes (9) Anxiety disorder Qualifiers: Anxiety disorder type: generalized anxiety disorder Qualified Code(s): F41.1 - Generalized anxiety disorder Is this a current diagnosis for this admission?: Yes - Time Time Spent with patient: 15-24 minutes Medications reviewed and adjusted accordingly: Yes Anticipated discharge: Home with Homehealth Within: Other - Plan Summary Plan Summary: We will get the record about the echocardiogram Continues to current medication Repeat the chest x-ray in the morning Physical therapy and oxygen wean off
--- NOTE | 2018-10-05 08:42 | RADIOLOGY REPORT (SQ) ---
EXAM DESCRIPTION: U/S RETROPERITON LTD COMPLETED DATE/TIME: 10/05/2018 5:02 am REASON FOR STUDY: renal failure/pylo COMPARISON: 09/23/2017 CT abdomen pelvis TECHNIQUE: Dynamic and static grayscale images acquired of the kidneys and bladder and recorded on P ACS. Additional selected color Doppler and spectral images recorded. LIMITATIONS: None. FINDINGS: RIGHT KIDNEY: 9.6 cm in length with normal echogenicity and mild cortical thinning. No solid or suspicious masses. No hydronephrosis. No calcifications. LEFT KIDNEY: 9.8 cm in length with normal cortical echogenicity and mild cortical thinning. No nakia id or suspicious masses. No hydronephrosis. No calcifications. BLADDER: No masses. OTHER FINDINGS: No other significant finding. IMPRESSION: No hydronephrosis TECHNICAL DOCUMENTATION: JOB ID: [id number] [employer]- All Rights Reserved Reading location - IP/workstation name: [email or web address]
[2018-10-05] MEDS: INSULIN LISPRO 100 UNIT/ML 3 ML VIAL SUBCUT SCH ×4 (08:55→21:11)
[2018-10-05] MEDS: VALSARTAN 80 MG TABLET PO SCH (10:10)
[2018-10-05] MEDS: BUSPIRONE HCL 10 MG TABLET PO SCH ×2 (10:10→21:12)
[2018-10-05] MEDS: MULTIVITAMIN TABLET PO SCH (10:10)
[2018-10-05] MEDS: CHOLECALCIFEROL (D3) 1,000 UNIT TABLET PO SCH (10:10)
[2018-10-05] MEDS: METOPROLOL SUCCINATE 50 MG TAB.SR.24H PO SCH (10:10)
[2018-10-05] MEDS: CLOPIDOGREL BISULFATE 75 MG TABLET PO SCH (10:11)
[2018-10-05] MEDS: FERROUS SULFATE 325 MG TABLET PO SCH (10:11)
[2018-10-05] MEDS: ESCITALOPRAM OXALATE 10 MG TABLET PO SCH (10:11)
[2018-10-05] MEDS: MEMANTINE HCL 10 MG TABLET PO SCH ×2 (10:11→21:11)
[2018-10-05] MEDS: ERTAPENEM SODIUM 0.5 GM in NORMAL SALINE 50 ML IV SCH (18:22)
[2018-10-05] MEDS: ATORVASTATIN CALCIUM 10 MG TABLET PO SCH (21:12)
[2018-10-05] MEDS: AMLODIPINE BESYLATE 2.5 MG TABLET PO SCH (21:12)
[2018-10-05] MEDS: DONEPEZIL HCL 5 MG TABLET PO SCH (21:12)
[2018-10-06] MEDS: LEVOTHYROXINE SODIUM 0.025 MG TABLET PO SCH (05:12)
[2018-10-06 06:31] LABS: ABSOLUTE EOSINOPHILS # (AUTO) 0.2 10^3/uL (0.0-0.6); ABSOLUTE LYMPHOCYTES (AUTO) 0.6 10^3/uL (0.5-4.7); ABSOLUTE MONOCYTES (AUTO) 0.9 10^3/uL (0.1-1.4); ABSOLUTE NEUT (AUTO) 6.2 10^3/uL (1.7-8.2); BASOPHILS % (AUTO) 0.3 % (0-2); EOSINOPHILS % (AUTO) 2.1 % (0-6); HEMATOCRIT 29.8 % (36.0-47.0); HEMOGLOBIN 10.2 g/dL (12.0-15.5); LYMPHOCYTES % (AUTO) 7.2 % (13-45); MEAN CORPUSCULAR HEMOGLOBIN 32.2 pg (27.0-33.4); MEAN CORPUSCULAR HGB CONC 34.3 g/dL (32.0-36.0); MEAN CORPUSCULAR VOLUME 94 fl (80-97); MONOCYTES % (AUTO) 11.6 % (3-13); RED BLOOD COUNT 3.18 10^6/uL (3.72-5.28); RED CELL DISTRIBUTION WIDTH 13.4 % (11.5-14.0); SEGMENTED NEUTROPHILS % (AUTO) 78.8 % (42-78); TOTAL CELLS COUNTED % (AUTO) 100 %; WHITE BLOOD COUNT 7.8 10^3/uL (4.0-10.5)
[2018-10-06 06:46] LABS: ANION GAP 9 (5-19); BLOOD UREA NITROGEN 26 mg/dL (7-20); CALCIUM 8.5 mg/dL (8.4-10.2); CARBON DIOXIDE 22 mmol/L (22-30); CHLORIDE 110 mmol/L (98-107); GLUCOSE 157 mg/dL (75-110); POTASSIUM 3.9 mmol/L (3.6-5.0); SODIUM 140.8 mmol/L (137-145)
[2018-10-06 06:50] LABS: PLATELET COUNT 88 10^3/uL (150-450)
[2018-10-06] MEDS: INSULIN LISPRO 100 UNIT/ML 3 ML VIAL SUBCUT SCH ×4 (08:08→22:04)
--- NOTE | 2018-10-06 08:20 | PDOC PROGRESS REPORT ---
Subjective Progress Note for:: 10/06/18 Subjective:: Patient is feeling better Patients require only 1 L oxygen The patient's walk with the physical therapy No fever no chills Patient's denied any complaints today Reason For Visit: SEPSIS,ACUTE PYELONEPHRITIS,ACUTE RENAL FAILURE Physical Exam Vital Signs: Temp Pulse Resp BP Pulse Ox 97.8 F 70 20 154/60 H 96 10/06/18 07:17 10/06/18 07:17 10/06/18 07:17 10/06/18 07:17 10/06/18 07:17 Intake & Output 10/05/18 10/06/18 10/07/18 06:59 06:59 06:59 Intake Total 1675 565 Balance 1675 565 Weight 64.8 kg 63.1 kg General appearance: PRESENT: no acute distress, well-developed, well-nourished Head exam: PRESENT: atraumatic, normocephalic Eye exam: PRESENT: conjunctiva pink, EOMI, PERRLA. ABSENT: scleral icterus Ear exam: PRESENT: normal external ear exam Mouth exam: PRESENT: moist, tongue midline Neck exam: PRESENT: full ROM. ABSENT: carotid bruit, JVD, lymphadenopathy, thyromegaly Respiratory exam: PRESENT: clear to auscultation cheli Cardiovascular exam: PRESENT: RRR. ABSENT: diastolic murmur, rubs, systolic murmur Vascular exam: PRESENT: normal capillary refill GI/Abdominal exam: PRESENT: normal bowel sounds, soft. ABSENT: distended, guarding, mass, organolmegaly, rebound, tenderness Rectal exam: PRESENT: deferred Extremities exam: ABSENT: pedal edema Musculoskeletal exam: PRESENT: ambulatory Neurological exam: PRESENT: alert, awake, oriented to person. ABSENT: motor sensory deficit Psychiatric exam: PRESENT: appropriate affect, normal mood. ABSENT: homicidal ideation, suicidal ideation Skin exam: PRESENT: dry, intact, warm. ABSENT: cyanosis, rash Results Laboratory Results: 10/06/18 06:13 10/06/18 06:13 10/06/18 10/06/18 06:13 06:13 WBC 7.8 RBC 3.18 L Hgb 10.2 L Hct 29.8 L MCV 94 MCH 32.2 MCHC 34.3 RDW 13.4 Plt Count 88 L Seg Neutrophils % 78.8 H Lymphocytes % 7.2 L Monocytes % 11.6 Eosinophils % 2.1 Basophils % 0.3 Absolute Neutrophils 6.2 Absolute Lymphocytes 0.6 Absolute Monocytes 0.9 Absolute Eosinophils 0.2 Absolute Basophils 0.0 Sodium 140.8 Potassium 3.9 Chloride 110 H Carbon Dioxide 22 Anion Gap 9 BUN 26 H Creatinine 1.24 Est GFR ( Amer) 50 L Est GFR (Non-Af Amer) 42 L Glucose 157 H Calcium 8.5 Impressions: Chest X-Ray 10/04/18 00:00 IMPRESSION: Left pleural effusion. Renal Ultrasound 10/05/18 00:00 IMPRESSION: No hydronephrosis Assessment & Plan - Diagnosis (1) E. coli pyelonephritis Is this a current diagnosis for this admission?: Yes Plan: Currently all improving plan is to discharge with the p.o. antibiotic (2) Acute renal failure Qualifiers: Acute renal failure type: unspecified Qualified Code(s): N17.9 - Acute kidney failure, unspecified Is this a current diagnosis for this admission?: Yes Plan: All resolved (3) History of cerebrovascular disease Is this a current diagnosis for this admission?: Yes (4) Diabetes mellitus type 2 in nonobese Is this a current diagnosis for this admission?: Yes (5) GERD (gastroesophageal reflux disease) Qualifiers: Esophagitis presence: esophagitis presence not specified Qualified Code(s): K21.9 - Gastro-esophageal reflux disease without esophagitis Is this a current diagnosis for this admission?: Yes (6) Hypertension Qualifiers: Hypertension type: essential hypertension Qualified Code(s): I10 - Essential (primary) hypertension Is this a current diagnosis for this admission?: Yes (7) Dementia Qualifiers: Dementia type: unspecified type Dementia behavioral disturbance: with beh avioral disturbance Qualified Code(s): F03.91 - Unspecified dementia with behavioral disturbance Is this a current diagnosis for this admission?: Yes (8) Depression Qualifiers: Depression Type: major depressive disorder Is this a current diagnosis for this admission?: Yes (9) Anxiety disorder Qualifiers: Anxiety disorder type: generalized anxiety disorder Qualified Code(s): F41.1 - Generalized anxiety disorder Is this a current diagnosis for this admission?: Yes - Time Time Spent with patient: 15-24 minutes Medications reviewed and adjusted accordingly: Yes Anticipated discharge: Home, Home with Homehealth Within: within 24 hours - Plan Summary Plan Summary: We will repeat the chest x-ray Continues to current medications
--- NOTE | 2018-10-06 09:39 | RADIOLOGY REPORT (SQ) ---
EXAM DESCRIPTION: CHEST 2 VIEWS COMPLETED DATE/TIME: 10/06/2018 9:27 am REASON FOR STUDY: sob COMPARISON: 10/04/2018 EXAM PARAMETERS: NUMBER OF VIEWS: two views TECHNIQUE: Digital Frontal and Lateral radiographic views of the chest acquired. RADIATION DOSE: NA LIMITATIONS: none FINDINGS: LUNGS AND PLEURA: Emphysematous change with hyperinflation and flattening of the bilateral hemidiaphragms. Decreased but persistent small left pleural effusion. Possible trace right effusio n. Chronic interstitial opacities without dense consolidation. No pneumothorax. MEDIASTINUM AND HILAR STRUCTURES: No masses or contour abnormalities. HEART AND VASCULAR STRUCTURES: Normal heart size. Aortic atherosclerosis. BONES: No acute findings. HARDWARE: Prior cholecystectomy. OTHER: No other significant finding. IMPRESSION: Decreased but persistent small left pleural effusion. Possible trace right effusion. N o other evidence of acute cardiopulmonary process. TECHNICAL DOCUMENTATION: JOB ID: [id number] [employer]- All Rights Reserved Reading location - IP/workstation name: [email or web address]
[2018-10-06] MEDS: VALSARTAN 80 MG TABLET PO SCH (10:22)
[2018-10-06] MEDS: CHOLECALCIFEROL (D3) 1,000 UNIT TABLET PO SCH (10:23)
[2018-10-06] MEDS: ESCITALOPRAM OXALATE 10 MG TABLET PO SCH (10:23)
[2018-10-06] MEDS: MEMANTINE HCL 10 MG TABLET PO SCH ×2 (10:23→22:03)
[2018-10-06] MEDS: AMLODIPINE BESYLATE 2.5 MG TABLET PO SCH ×2 (10:24→22:04)
[2018-10-06] MEDS: BUSPIRONE HCL 10 MG TABLET PO SCH ×2 (10:25→22:04)
[2018-10-06] MEDS: METOPROLOL SUCCINATE 50 MG TAB.SR.24H PO SCH (10:25)
[2018-10-06] MEDS: CLOPIDOGREL BISULFATE 75 MG TABLET PO SCH (10:26)
[2018-10-06] MEDS: MULTIVITAMIN TABLET PO SCH (10:26)
[2018-10-06] MEDS: FERROUS SULFATE 325 MG TABLET PO SCH (10:27)
[2018-10-06] MEDS: ERTAPENEM SODIUM 0.5 GM in NORMAL SALINE 50 ML IV SCH (17:32)
--- NOTE | 2018-10-06 18:01 | Progress Note ---
Provider Note Provider Note: ID consult - brief note Asked by pharmacy to review patient's chart. Pt not seen or examined. Pt is a 83 year old woman admitted with sepsis. This was secondary to E coli bacteremia from a urinary source; she has been suspected of having pyelonephritis. She has been on Invanz since 10/02. Her E. coli isolate is susceptible to all agents tested except for tetracycline, ampicillin and Unasyn. Given the limited antimicrobial armamentarium, carbapenem use would best be conserved for situations in which there are more resistant isolates and few equally effective treatment options. For her E coli isolate, Rocephin is as effective an option as ertapenem. Ertapenem does not offer an advantage over Rocephin in terms of once daily IV dosing. It also has the disadvantage of needing to be renally dose adjusted unlike Rocephin. Suggest switching to Rocephin if she is going to remain on IV therapy. Phill Wiggins MD [facility] Infectious Diseases pager [phone]
[2018-10-06] MEDS: ATORVASTATIN CALCIUM 10 MG TABLET PO SCH (22:04)
[2018-10-06] MEDS: DONEPEZIL HCL 5 MG TABLET PO SCH (22:04)
[2018-10-07] MEDS ORDERED: HYDRALAZINE HCL INJ/PF 20 MG/1 ML SDV IV PRN (00:06)
[2018-10-07] MEDS: LEVOTHYROXINE SODIUM 0.025 MG TABLET PO SCH (05:23)
[2018-10-07 05:32] LABS: ABSOLUTE EOSINOPHILS # (AUTO) 0.1 10^3/uL (0.0-0.6); ABSOLUTE LYMPHOCYTES (AUTO) 0.6 10^3/uL (0.5-4.7); ABSOLUTE MONOCYTES (AUTO) 0.8 10^3/uL (0.1-1.4); ABSOLUTE NEUT (AUTO) 6.5 10^3/uL (1.7-8.2); BASOPHILS % (AUTO) 0.3 % (0-2); EOSINOPHILS % (AUTO) 0.7 % (0-6); HEMATOCRIT 30.4 % (36.0-47.0); HEMOGLOBIN 10.5 g/dL (12.0-15.5); LYMPHOCYTES % (AUTO) 7.9 % (13-45); MEAN CORPUSCULAR HEMOGLOBIN 32.2 pg (27.0-33.4); MEAN CORPUSCULAR HGB CONC 34.5 g/dL (32.0-36.0); MEAN CORPUSCULAR VOLUME 93 fl (80-97); MONOCYTES % (AUTO) 9.5 % (3-13); PLATELET COUNT 110 10^3/uL (150-450); RED BLOOD COUNT 3.27 10^6/uL (3.72-5.28); RED CELL DISTRIBUTION WIDTH 13.2 % (11.5-14.0); SEGMENTED NEUTROPHILS % (AUTO) 81.6 % (42-78); TOTAL CELLS COUNTED % (AUTO) 100 %
[2018-10-07 05:48] LABS: ANION GAP 13 (5-19); BLOOD UREA NITROGEN 21 mg/dL (7-20); CALCIUM 8.7 mg/dL (8.4-10.2); CARBON DIOXIDE 20 mmol/L (22-30); CHLORIDE 106 mmol/L (98-107); GLUCOSE 165 mg/dL (75-110); POTASSIUM 3.4 mmol/L (3.6-5.0); SODIUM 139.3 mmol/L (137-145)
[2018-10-07] MEDS: INSULIN LISPRO 100 UNIT/ML 3 ML VIAL SUBCUT SCH ×4 (08:29→22:23)
--- NOTE | 2018-10-07 08:51 | PDOC PROGRESS REPORT ---
Subjective Progress Note for:: 10/07/18 Subjective:: Patient is currently doing well Patient is denied any chest pain to than any shortness of the breath No fever no chills Patient's walk with the physical therapy still need oxygen 1 L Reason For Visit: SEPSIS,ACUTE PYELONEPHRITIS,ACUTE RENAL FAILURE Physical Exam Vital Signs: Temp Pulse Resp BP Pulse Ox 98.0 F 69 20 141/46 H 99 10/07/18 03:02 10/07/18 03:02 10/07/18 03:02 10/07/18 03:02 10/07/18 03:02 Intake & Output 10/06/18 10/07/18 10/08/18 06:59 06:59 06:59 Intake Total 565 787 Balance 565 787 Weight 63.1 kg 62.4 kg General appearance: PRESENT: no acute distress, well-developed, well-nourished Head exam: PRESENT: atraumatic, normocephalic Eye exam: PRESENT: conjunctiva pink, EOMI, PERRLA. ABSENT: scleral icterus Ear exam: PRESENT: normal external ear exam Mouth exam: PRESENT: moist, tongue midline Neck exam: PRESENT: full ROM. ABSENT: carotid bruit, JVD, lymphadenopathy, thyromegaly Respiratory exam: PRESENT: clear to auscultation cheli Cardiovascular exam: PRESENT: RRR. ABSENT: diastolic murmur, rubs, systolic murmur Vascular exam: PRESENT: normal capillary refill GI/Abdominal exam: PRESENT: normal bowel sounds, soft. ABSENT: distended, guarding, mass, organolmegaly, rebound, tenderness Rectal exam: PRESENT: deferred Musculoskeletal exam: PRESENT: ambulatory Neurological exam: PRESENT: alert, awake, oriented to person, oriented to place. ABSENT: motor sensory deficit Psychiatric exam: PRESENT: appropriate affect, normal mood. ABSENT: homicidal ideation, suicidal ideation Skin exam: PRESENT: dry, intact, warm. ABSENT: cyanosis, rash Results Laboratory Results: 10/07/18 04:40 10/07/18 04:40 10/07/18 10/07/18 04:40 04:40 WBC 8.0 RBC 3.27 L Hgb 10.5 L Hct 30.4 L MCV 93 MCH 32.2 MCHC 34.5 RDW 13.2 Plt Count 110 L Seg Neutrophils % 81.6 H Lymphocytes % 7.9 L Monocytes % 9.5 Eosinophils % 0.7 Basophils % 0.3 Absolute Neutrophils 6.5 Absolute Lymphocytes 0.6 Absolute Monocytes 0.8 Absolute Eosinophils 0.1 Absolute Basophils 0.0 Sodium 139.3 Potassium 3.4 L Chloride 106 Carbon Dioxide 20 L Anion Gap 13 BUN 21 H Creatinine 1.02 Est GFR ( Amer) > 60 Est GFR (Non-Af Amer) 52 L Glucose 165 H Calcium 8.7 Impressions: Renal Ultrasound 10/05/18 00:00 IMPRESSION: No hydronephrosis Chest X-Ray 10/06/18 00:00 IMPRESSION: Decreased but persistent small left pleural effusion. Possible trace right effusion. No other evidence of acute cardiopulmonary process. Assessment & Plan - Diagnosis (1) E. coli pyelonephritis Is this a current diagnosis for this admission?: Yes Plan: Afebrile Start on the p.o. antibiotics (2) Acute renal failure Qualifiers: Acute renal failure type: unspecified Qualified Code(s): N17.9 - Acute kidney failure, unspecified Is this a current diagnosis for this admission?: Yes Plan: All resolved (3) History of cerebrovascular disease Is this a current diagnosis for this admission?: Yes (4) Diabetes mellitus type 2 in nonobese Is this a current diagnosis for this admission?: Yes (5) GERD (gastroesophageal reflux disease) Qualifiers: Esophagitis presence: esophagitis presence not specified Qualified Code(s): K21.9 - Gastro-esophageal reflux disease without esophagitis Is this a current diagnosis for this admission?: Yes (6) Hypertension Qualifiers: Hypertension type: essential hypertension Qualified Code(s): I10 - Essential (primary) hypertension Is this a current diagnosis for this admission?: Yes (7) Dementia Qualifiers: Dementia type: unspecified type Dementia behavioral disturbance: with behavioral disturbance Qualified Code(s): F03.91 - Unspecified dementia with behavioral disturbance Is this a current diagnosis for this admission?: Yes (8) Depression Qualifiers: Depression Type: major depressive disorder Is this a current diagnosis for this admission?: Yes (9) Anxiety disorder Qualifiers: Anxiety disorder type: generalized anxiety disorder Qualified Code(s): F41.1 - Generalized anxiety disorder Is this a current diagnosis for this admission?: Yes - Time Time Spent with patient: 15-24 minutes Medications reviewed and adjusted accordingly: Yes Anticipated discharge: Other Within: Other - Plan Summary Plan Summary: Continues to current medications
[2018-10-07] MEDS ORDERED: POTASSIUM CHLORIDE 20 MEQ PACKET PO ONE (10:00)
[2018-10-07] MEDS: FERROUS SULFATE 325 MG TABLET PO SCH (11:10)
[2018-10-07] MEDS: MULTIVITAMIN TABLET PO SCH (11:11)
[2018-10-07] MEDS: VALSARTAN 80 MG TABLET PO SCH ×2 (11:11→17:44)
[2018-10-07] MEDS: AMLODIPINE BESYLATE 2.5 MG TABLET PO SCH ×2 (11:11→22:23)
[2018-10-07] MEDS: MEMANTINE HCL 10 MG TABLET PO SCH ×2 (11:12→22:23)
[2018-10-07] MEDS: CHOLECALCIFEROL (D3) 1,000 UNIT TABLET PO SCH (11:12)
[2018-10-07] MEDS: BUSPIRONE HCL 10 MG TABLET PO SCH ×2 (11:12→22:22)
[2018-10-07] MEDS: METOPROLOL SUCCINATE 50 MG TAB.SR.24H PO SCH (11:12)
[2018-10-07] MEDS: ESCITALOPRAM OXALATE 10 MG TABLET PO SCH (11:12)
[2018-10-07] MEDS: CLOPIDOGREL BISULFATE 75 MG TABLET PO SCH (11:13)
[2018-10-07] MEDS: CIPROFLOXACIN HCL 500 MG TABLET PO SCH (17:44)
[2018-10-07] MEDS: ATORVASTATIN CALCIUM 10 MG TABLET PO SCH (22:22)
[2018-10-07] MEDS: DONEPEZIL HCL 5 MG TABLET PO SCH (22:23)
[2018-10-08] MEDS: CIPROFLOXACIN HCL 500 MG TABLET PO SCH ×2 (05:45→18:05)
[2018-10-08] MEDS: LEVOTHYROXINE SODIUM 0.025 MG TABLET PO SCH (05:45)
[2018-10-08] MEDS: INSULIN LISPRO 100 UNIT/ML 3 ML VIAL SUBCUT SCH ×3 (08:25→17:07)
[2018-10-08] MEDS: ESCITALOPRAM OXALATE 10 MG TABLET PO SCH (10:10)
[2018-10-08] MEDS: FERROUS SULFATE 325 MG TABLET PO SCH (10:11)
[2018-10-08] MEDS: VALSARTAN 80 MG TABLET PO SCH ×2 (10:11→18:05)
[2018-10-08] MEDS: AMLODIPINE BESYLATE 2.5 MG TABLET PO SCH (10:11)
[2018-10-08] MEDS: MEMANTINE HCL 10 MG TABLET PO SCH (10:11)
[2018-10-08] MEDS: CHOLECALCIFEROL (D3) 1,000 UNIT TABLET PO SCH (10:11)
[2018-10-08] MEDS: BUSPIRONE HCL 10 MG TABLET PO SCH (10:11)
[2018-10-08] MEDS: METOPROLOL SUCCINATE 50 MG TAB.SR.24H PO SCH (10:11)
[2018-10-08] MEDS: MULTIVITAMIN TABLET PO SCH (10:11)
[2018-10-08] MEDS: CLOPIDOGREL BISULFATE 75 MG TABLET PO SCH (10:11)
--- NOTE | 2018-10-08 12:29 | PDOC PROGRESS REPORT ---
Subjective Progress Note for:: 10/08/18 Subjective:: Patient is currently doing much better except patients need oxygen's when ambulating No fever no chills Reason For Visit: SEPSIS,ACUTE PYELONEPHRITIS,ACUTE RENAL FAILURE Physical Exam Vital Signs: Temp Pulse Resp BP Pulse Ox 98.5 F 72 20 161/62 H 99 10/08/18 03:45 10/08/18 07:00 10/08/18 03:45 10/08/18 03:45 10/08/18 03:45 Intake & Output 10/07/18 10/08/18 10/09/18 06:59 06:59 06:59 Intake Total 787 118 Balance 787 118 Weight 62.4 kg 62.1 kg General appearance: PRESENT: no acute distress, well-developed, well-nourished Head exam: PRESENT: atraumatic, normocephalic Eye exam: PRESENT: conjunctiva pink, EOMI, PERRLA. ABSENT: scleral icterus Ear exam: PRESENT: normal external ear exam Mouth exam: PRESENT: moist, tongue midline Neck exam: PRESENT: full ROM. ABSENT: carotid bruit, JVD, lymphadenopathy, thyromegaly Respiratory exam: PRESENT: clear to auscultation cheli Cardiovascular exam: PRESENT: RRR. ABSENT: diastolic murmur, rubs, systolic murmur Pulses: PRESENT: normal dorsalis pedis pul, +2 pedal pulses bilateral Vascular exam: PRESENT: normal capillary refill GI/Abdominal exam: PRESENT: normal bowel sounds, soft. ABSENT: distended, gua rding, mass, organolmegaly, rebound, tenderness Rectal exam: PRESENT: deferred Neurological exam: PRESENT: alert, awake, oriented to person, oriented to place. ABSENT: motor sensory deficit Psychiatric exam: PRESENT: appropriate affect, normal mood. ABSENT: homicidal ideation, suicidal ideation Skin exam: PRESENT: dry, intact, warm. ABSENT: cyanosis, rash Results Laboratory Results: 10/07/18 04:40 10/07/18 04:40 Impressions: Renal Ultrasound 10/05/18 00:00 IMPRESSION: No hydronephrosis Chest X-Ray 10/06/18 00:00 IMPRESSION: Decreased but persistent small left pleural effusion. Possible trace right effusion. No other evidence of acute cardiopulmonary process. Assessment & Plan - Diagnosis (1) E. coli pyelonephritis Is this a current diagnosis for this admission?: Yes Plan: Afebrile Start on the p.o. antibiotics (2) Acute renal failure Qualifiers: Acute renal failure type: unspecified Qualified Code(s): N17.9 - Acute kidney failure, unspecified Is this a current diagnosis for this admission?: Yes Plan: All resolved (3) History of cerebrovascular disease Is this a current diagnosis for this admission?: Yes (4) Diabetes mellitus type 2 in nonobese Is this a current diagnosis for this admission?: Yes (5) GERD (gastroesophageal reflux disease) Qualifiers: Esophagitis presence: esophagitis presence not specified Qualified Code(s): K21.9 - Gastro-esophageal reflux disease without esophagitis Is this a current diagnosis for this admission?: Yes (6) Hypertension Qualifiers: Hypertension type: essential hypertension Qualified Code(s): I10 - Essential (primary) hypertension Is this a current diagnosis for this admission?: Yes (7) Dementia Qualifiers: Dementia type: unspecified type Dementia behavioral disturbance: with behavioral disturbance Qualified Code(s): F03.91 - Unspecified dementia with behavioral disturbance Is this a current diagnosis for this admission?: Yes (8) Depression Qualifiers: Depression Type: major depressive disorder Is this a current diagnosis for this admission?: Yes (9) Anxiety disorder Qualifiers: Anxiety disorder type: generalized anxiety disorder Qualified Code(s): F41.1 - Generalized anxiety disorder Is this a current diagnosis for this admission?: Yes (10) Hypoxia Is this a current diagnosis for this admission?: Yes Plan: Patient is a hypoxia on ambulating required 2 L nasal cannula Patient oxygen's the resting condition is more than 90% Ambulating running 88 - Time Time Spent with patient: 15-24 minutes Medications reviewed and adjusted accordingly: Yes Anticipated discharge: Home with Homehealth Within: Other - Plan Summary Plan Summary: Discussed with the nursing staff regarding the patient's may be required home oxygen temporary Patient otherwise hemodynamically stable Discussed with the patient's daughter about the all this plan Once the oxygen arrangement make patients can be discharged Following a 1 week
--- NOTE | 2018-10-08 13:25 | RADIOLOGY REPORT (SQ) ---
EXAM DESCRIPTION: CHEST 2 VIEWS COMPLETED DATE/TIME: 10/08/2018 1:14 pm REASON FOR STUDY: hypoxia COMPARISON: 10/06/2018 EXAM PARAMETERS: NUMBER OF VIEWS: two views TECHNIQUE: Digital Frontal and Lateral radiographic views of the chest acquired. RADIATION DOSE: NA LIMITATIONS: none FINDINGS: LUNGS AND PLEURA: Small pleural effusion seen posteriorly. MEDIASTINUM AND HILAR STRUCTURES: No masses or contour abnormalities. HEART AND VASCULAR STRUCTURES: Heart size is borderline. No pulmonary edema. BONES: No acute findings. HARDWARE: None in the chest. OTHER: No other significant finding. IMPRESSION: Borderline cardiomegaly without pulmonary edema. Small pleural effusion, likely on the left side. TECHNICAL DOCUMENTATION: JOB ID: [id number] [employer]- All Rights Reserved Reading location - IP/workstation name: [email or web address]
--- NOTE | 2018-10-08 16:44 | PDOC DISCHARGE SUMMARY ---
General - Admit/Disc Date/PCP Admission Date/Primary Care Provider: 10/01/18 22:43 BAILEE MONTEZ Discharge Date: 10/08/18 - Discharge Diagnosis (1) E. coli pyelonephritis Is this a current diagnosis for this admission?: Yes Summary: Currently doing well Continues to Cipro (2) Acute renal failure Is this a current diagnosis for this admission?: Yes Summary: Clear all resolved (3) History of cerebrovascular disease Is this a current diagnosis for this admission?: Yes (4) Diabetes mellitus type 2 in nonobese Is this a current diagnosis for this admission?: Yes (5) GERD (gastroesophageal reflux disease) Is this a current diagnosis for this admission?: Yes (6) Hypertension Is this a current diagnosis for this admission?: Yes Summary: Continues to monitor low-sodium diet adjust the medications (7) Dementia Is this a current diagnosis for this admission?: Yes (8) Depression Is this a current diagnosis for this admission?: Yes (9) Anxiety disorder Is this a current diagnosis for this admission?: Yes (10) Hypoxia Is this a current diagnosis for this admission?: Yes Summary: Currently discharged with home oxygen's and will reevaluate next week okay - Additional Information Resuscitation Status: Do Not Intubate Discharge Activity: Activity As Tolerated Prescriptions: Amlodipine Besylate [Norvasc 2.5 mg Tablet] 2.5 mg PO Q12 #60 tablet Ciprofloxacin HCl [Cipro 500 mg Tablet] 500 mg PO Q12A #14 tablet Home Medications: Atorvastatin Calcium [Lipitor 10 mg Tablet] 10 mg PO QHS 09/23/17 Clopidogrel Bisulfate [Plavix 75 mg Tablet] 75 mg PO DAILY 09/23/17 Donepezil HCl [Aricept] 10 mg PO QHS 09/23/17 Escitalopram Oxalate [Lexapro 10 mg Tablet] 20 mg PO DAILY 09/23/17 Ferrous Sulfate [Feosol 325 mg Tablet] 325 mg PO DAILY 09/23/17 Levothyroxine Sodium [Synthroid 0.025 mg Tablet] 0.025 mg PO Q6AM 09/23/17 Metoprolol Succinate [Toprol Xl 50 mg Tab.sr] 50 mg PO DAILY 09/23/17 Pantoprazole Sodium [Protonix] 20 mg PO DAILY 09/23/17 Valsartan [Diovan 80 mg Tablet] 80 mg PO DAILY 09/23/17 Ascorbic Acid [Vitamin C 500 mg Tablet] 500 mg PO DAILY 10/02/18 Buspirone HCl [Buspar 5 mg Tablet] 5 mg PO Q12 10/02/18 Cholecalciferol (Vitamin D3) [Vitamin D3 1000 Unit Tablet] 1,000 unit PO DAILY 10/02/18 Fexofenadine HCl [Radha] 180 mg PO DAILYP PRN 10/02/18 Insulin Glargine,Hum.rec.anlog [Lantus Insulin 100 Unit/1 ml 10 ml] 5 units SUBCUT QAM 10/02/18 Insulin Glargine,Hum.rec.anlog [Lantus Insulin 100 Unit/1 ml 10 ml] 32 units SUBCUT QHS 10/02/18 Memantine HCl 5 mg PO Q12 10/02/18 Multivitamin [Tab-A-Dong (Multiple Vitamin) Tablet] 1 tab PO DAILY 10/02/18 Nateglinide [Starlix 60 mg Tablet] 60 mg PO Q12 10/02/18 Amlodipine Besylate [Norvasc 2.5 mg Tablet] 2.5 mg PO Q12 #60 tablet 10/08/18 Ciprofloxacin HCl [Cipro 500 mg Tablet] 500 mg PO Q12A #14 tablet 10/08/18 Hydrochlorothiazide [Hydrodiuril 25 mg Tablet] 12.5 mg PO DAILY #30 10/08/18 History of Present Illness History of Present Illness: VEGA MARIO is a 83 year old female Patient was admitted for the UTI and sepsis Hospital Course Hospital Course: Patient is a 83-year-old female presenting the emergency department with the urinary tract infections and sepsis patient was started on IV Invanz and IV fluid patient's Recent urine cultures grew out the E. coli Patients also have a renal failure we will treat with IV fluid Patient's response very well with the medications Patients also have some hypoxia when ambulatory which required home oxygen for temporary Discussed with the patient and the daughter regarding the current condition on home oxygen's and home health arrangement Follow in office in 1 week to recheck the CBC Chem-7 and home oxygen evaluations Physical Exam Vital Signs: Temp Pulse Resp BP Pulse Ox 98.0 F 67 18 168/69 H 89 L 10/08/18 12:29 10/08/18 14:00 10/08/18 12:29 10/08/18 12:29 10/08/18 12:29 Intake & Output 10/07/18 10/08/18 10/09/18 06:59 06:59 06:59 Intake Total 787 118 240 Output Total 1 Balance 787 118 239 Weight 62.4 kg 62.1 kg General appearance: PRESENT: no acute distress, well-developed, well-nourished Head exam: PRESENT: atraumatic, normocephalic Eye exam: PRESENT: conjunctiva pink, EOMI, PERRLA. ABSENT: scleral icterus Ear exam: PRESENT: normal external ear exam Mouth exam: PRESENT: moist, tongue midline Neck exam: PRESENT: full ROM. ABSENT: carotid bruit, JVD, lymphadenopathy, thyromegaly Respiratory exam: PRESENT: clear to auscultation cheli Cardiovascular exam: PRESENT: RRR. ABSENT: diastolic murmur, rubs, systolic murmur Vascular exam: PRESENT: normal capillary refill GI/Abdominal exam: PRESENT: normal bowel sounds, soft. ABSENT: distended, guarding, mass, organolmegaly, rebound, tenderness Rectal exam: PRESENT: deferred Extremities exam: ABSENT: pedal edema Musculoskeletal exam: PRESENT: ambulatory Neurological exam: PRESENT: alert, awake, oriented to person, oriented to place, oriented to time, oriented to situation, CN II-XII grossly intact. ABSENT: motor sensory deficit Psychiatric exam: PRESENT: appropriate affect, normal mood. ABSENT: homicidal ideation, suicidal ideation Skin exam: PRESENT: dry, intact, warm. ABSENT: cyanosis, rash Results Laboratory Results: 10/07/18 04:40 10/07/18 04:40 Impressions: Renal Ultrasound 10/05/18 00:00 IMPRESSION: No hydronephrosis Chest X-Ray 10/08/18 00:00 IMPRESSION: Borderline cardiomegaly without pulmonary edema. Small pleural effusion, likely on the left side. Qualifiers - * PATIENT BEING DISCHARGED WITH ANY OF THE FOLLOWING DIAGNOSIS: No VTE patient discharged on overlapping Therapy?: Yes Acute Heart Failure Is this a Heart Failure Patient?: No Plan Time Spent: Greater than 30 Minutes - Following a 1 week in office Recheck the CBC Chem-7 Reevaluate the home oxygen requirement
[2018-10-08 17:11] VITALS: BP 126/56
== END 2018-10-08 18:21 | disposition home or self-care (01) | DRG 872 ==
LOC: ER 15:43 → EEVIPCON 22:43 → EH 22:43 → 3W 10-02 00:01
PROVIDERS: ADMIT Family Medicine; ATTEND Family Medicine
DX: A41.50 Gram-negative sepsis, unspecified (principal); N10 Acute pyelonephritis; N17.9 Acute kidney failure, unspecified; F03.91 Unspecified dementia, unspecified severity, with behavioral disturbance; E11.9 Type 2 diabetes mellitus without complications; I10 Essential (primary) hypertension; E78.5 Hyperlipidemia, unspecified; K21.9 Gastro-esophageal reflux disease without esophagitis; F32.9 Major depressive disorder, single episode, unspecified; B96.20 Unspecified Escherichia coli [E. coli] as the cause of diseases classified elsewhere; F41.1 Generalized anxiety disorder; Z87.891 Personal history of nicotine dependence
CPT/HCPCS: 36415; 71045; 71046; 76775; 80048; 80053; 81001; 82962; 83605; 85025; 87040; 87077; 87086; 87088; 87186; 96361; 96365; 99285; J0360; J0692; J1335; J1815; J3490; J7030; J7120; J7620; S0119

== ENCOUNTER 2019-07-17 11:37 | Inpatient (IN) | payer MEDICARE, OTHER ==
--- NOTE | 2019-07-17 11:52 | ER Document Report ---
ED Medical Screen (RME) - General Stated Complaint: BLOOD SUGAR PROBLEM Time Seen by Provider: 07/17/19 11:49 Primary Care Provider: AZAEL MONTIEL PA-C [Primary Care Provider] - Follow up as needed Information source: Patient, Relative Notes: Patient presents with concerns about altered mental status. Daughter states that patient was naked at the top of the stairs laughing strangely yesterday. Today daughter states that patient was grabbing her head stating that she felt crazy. Daughter has been managing patient's diabetes and has been administering patient's Lantus twice a day. Patient's blood sugars have been 60s to 80s and occasionally over 200. Daughter was concerned that patient's blood sugar may have dropped this morning so she did give her some jelly orally. Patient presently denies any complaints other than feeling weak and tired. Patient denies any headache pain. Patient was recently treated for UTI and has finished the antibiotics. hx: Diabetes, dementia Pain TRAVEL OUTSIDE OF THE [place] IN LAST 30 DAYS: No - Related Data Allergies/Adverse Reactions: hydroxyzine HCl [From Vistaril] Allergy (Severe, Verified 10/01/18 15:48) swelling hydroxyzine pamoate [From Vistaril] Allergy (Severe, Verified 10/01/18 15:48) swelling strawberry Allergy (Intermediate, Verified 10/01/18 15:48) Urticaria Past Medical History - Past Medical History Cardiac Medical History: Reports: Hx Hypercholesterolemia, Hx Hypertension Denies: Hx Atrial Fibrillation, Hx Congestive Heart Failure, Hx Coronary Artery Disease, Hx Heart Attack, Hx Peripheral Vascular Disease, Hx Heart Murmur Pulmonary Medical History: Reports: Hx Pneumonia - hx, Hx Sleep Apnea - USES MACHINE AT HOME "SOMETIMES" Denies: Hx Asthma, Hx Bronchitis, Hx COPD, Hx Tuberculosis Neurological Medical History: Denies: Hx Cerebrovascular Accident, Hx Seizures, Hx Parkinson's Disease Endocrine Medical History: Reports: Hx Diabetes Mellitus Type 2. Denies: Hx Graves' Disease, Hx Hyperthyroidism, Hx Hypothyroidism Renal/ Medical History: Denies: Hx Peritoneal Dialysis Malignancy Medical History: Denies: Hx Leukemia GI Medical History: Reports: Hx Gastroesophageal Reflux Disease Musculoskeltal Medical History: Denies Hx Arthritis, Denies Hx Fibromyalgia, Denies Hx Multiple Sclerosis, Denies Hx Muscular Dystrophy, Denies Hx Systemic Lupus Erythematosus Psychiatric Medical History: Reports: Hx Dementia, Hx Depression Denies: Hx Bipolar Disorder, Hx Post Traumatic Stress Disorder, Hx Schizophrenia Traumatic Medical History: Denies: Hx Fractures Infectious Medical History: Denies: Hx HIV Past Surgical History: Reports: Hx Cholecystectomy, Hx Hysterectomy. Denies: Hx Pacemaker - Immunizations Hx Diphtheria, Pertussis, Tetanus Vaccination: Yes Physical Exam - Cardiovascular Rhythm: Regular Heart sounds: S1 appreciated, S2 appreciated - Neurological Gui Coma Scale Eye Opening: Spontaneous Adams Coma Scale Verbal: Oriented Gui Coma Scale Motor: Obeys Commands Gui Coma Scale Total: 15 Doctor's Discharge - Discharge Referrals: AZAEL MONTIEL PA-C [Primary Care Provider] - Follow up as needed
--- NOTE | 2019-07-17 12:00 | EKG REPORT ---
SEVERITY:- BORDERLINE ECG - SINUS RHYTHM ATRIAL PREMATURE COMPLEX BORDERLINE T ABNORMALITIES, ANTERIOR LEADS : Confirmed by: Guerrero Orourke 17-Jul-2019 11:59:09
[2019-07-17 12:29] LABS: ABSOLUTE EOSINOPHILS # (AUTO) 0.2 10^3/uL (0.0-0.6); ABSOLUTE MONOCYTES (AUTO) 0.6 10^3/uL (0.1-1.4); ABSOLUTE NEUT (AUTO) 6.5 10^3/uL (1.7-8.2); BASOPHILS % (AUTO) 0.4 % (0-2); EOSINOPHILS % (AUTO) 2.3 % (0-6); HEMATOCRIT 37.9 % (36.0-47.0); LYMPHOCYTES % (AUTO) 12.2 % (13-45); MEAN CORPUSCULAR HEMOGLOBIN 33.6 pg (27.0-33.4); MEAN CORPUSCULAR HGB CONC 34.3 g/dL (32.0-36.0); MEAN CORPUSCULAR VOLUME 98 fl (80-97); MONOCYTES % (AUTO) 7.1 % (3-13); PLATELET COUNT 166 10^3/uL (150-450); RED BLOOD COUNT 3.87 10^6/uL (3.72-5.28); RED CELL DISTRIBUTION WIDTH 13.2 % (11.5-14.0); TOTAL CELLS COUNTED % (AUTO) 100 %; WHITE BLOOD COUNT 8.3 10^3/uL (4.0-10.5)
[2019-07-17 12:36] LABS: ALBUMIN 4.7 g/dL (3.5-5.0); ALKALINE PHOSPHATASE 92 U/L (38-126); ANION GAP 14 (5-19); ASPARTATE AMINO TRANSFERASE 41 U/L (14-36); BILIRUBIN,DIRECT 0.4 mg/dL (0.0-0.4); BILIRUBIN,TOTAL 0.6 mg/dL (0.2-1.3); BLOOD UREA NITROGEN 35 mg/dL (7-20); CALCIUM 9.3 mg/dL (8.4-10.2); CARBON DIOXIDE 22 mmol/L (22-30); CHLORIDE 99 mmol/L (98-107); GLUCOSE 102 mg/dL (75-110); POTASSIUM 5.8 mmol/L (3.6-5.0)
--- NOTE | 2019-07-17 12:53 | RADIOLOGY REPORT (SQ) ---
EXAM DESCRIPTION: CHEST SINGLE VIEW COMPLETED DATE/TIME: 07/17/2019 12:31 pm REASON FOR STUDY: AMS COMPARISON: 10/08/2018 EXAM PARAMETERS: NUMBER OF VIEWS: One view. TECHNIQUE: Single frontal radiographic view of the chest acquired. RADIATION DOSE: NA LIMITATIONS: None. FINDINGS: LUNGS AND PLEURA: No opacities, masses or pneumothorax. No pleural effusion. MEDIASTINUM AND HILAR STRUCTURES: No masses. Contour normal. HEART AND VASCULAR STRUCTURES: Heart normal in size. Normal vasculature. BONES: No acute findings. HARDWARE: None in the chest. OTHER: No other significant finding. IMPRESSION: NO ACUTE RADIOGRAPHIC FINDING IN THE CHEST. TECHNICAL DOCUMENTATION: JOB ID: [id number] [employer]- All Rights Reserved Reading location - IP/workstation name: [email or web address]
--- NOTE | 2019-07-17 13:20 | ER Document Report ---
ED General - General Chief Complaint: Altered Mental Status Stated Complaint: BLOOD SUGAR PROBLEM Time Seen by Provider: 07/17/19 11:49 Primary Care Provider: AZAEL MONTIEL PA-C [PHYSICIAN OCEAN EXPORT AGENT] - Follow up as needed Mode of Arrival: Ambulatory Information source: Patient, Relative Cannot obtain history due to: Dementia Notes: Patient is an 84-year-old female presenting to the emergency department with her daughter chief complaint of altered mental status. Daughter states that the patient has been more confused than normal the past couple of days. She states yesterday she found her at the top of the stairs basically naked after having had several episodes of diarrhea today she was more confused when the daughter checked her blood sugar at 1030 it was 46 and after a little bit of glucose it went up to 70 at which time she gave the patient 1/2 a peanut butter and jelly sandwich and brought her to the emergency department for evaluation. At time of presentation patient is alert and attentive and in no acute distress. TRAVEL OUTSIDE OF THE [place] IN LAST 30 DAYS: No - HPI Patient complains to provider of: Confusion Onset: Yesterday Onset/Duration: Gradual, Worse Quality of pain: No pain Severity: Moderate Pain Level: 0 Associated symptoms: None Exacerbated by: Denies Relieved by: Other - Glucose Similar symptoms previously: Yes Recently seen / treated by doctor: No - Related Data Allergies/Adverse Reactions: hydroxyzine HCl [From Vistaril] Allergy (Severe, Verified 10/01/18 15:48) swelling hydroxyzine pamoate [From Vistaril] Allergy (Severe, Verified 10/01/18 15:48) swelling strawberry Allergy (Intermediate, Verified 10/01/18 15:48) Urticaria Home Medications: Copy of patient's Med Rec on chart Past Medical History - General Information source: Patient, Relative - Social History Smoking Status: Unknown if Ever Smoked Cigarette use (# per day): No Frequency of alcohol use: None Drug Abuse: None Lives with: Family, Other - Patient lives with daughter and her Family History: Reviewed & Not Pertinent Patient has suicidal ideation: No Patient has homicidal ideation: No - Past Medical History Cardiac Medical History: Reports: Hx Hypercholesterolemia, Hx Hypertension Denies: Hx Atrial Fibrillation, Hx Congestive Heart Failure, Hx Coronary Artery Disease, Hx Heart Attack, Hx Peripheral Vascular Disease, Hx Heart Murmur Pulmonary Medical History: Reports: Hx Pneumonia - hx, Hx Sleep Apnea - USES MACHINE AT HOME "SOMETIMES" Denies: Hx Asthma, Hx Bronchitis, Hx COPD, Hx Tuberculosis Neurological Medical History: Denies: Hx Cerebrovascular Accident, Hx Seizures, Hx Parkinson's Disease Endocrine Medical History: Reports: Hx Diabetes Mellitus Type 2. Denies: Hx Graves' Disease, Hx Hyperthyroidism, Hx Hypothyroidism Renal/ Medical History: Denies: Hx Peritoneal Dialysis Malignancy Medical History: Denies: Hx Leukemia GI Medical History: Reports: Hx Gastroesophageal Reflux Disease Musculoskeletal Medical History: Reports Hx Arthritis, Denies Hx Fibromyalgia, Denies Hx Multiple Sclerosis, Denies Hx Muscular Dystrophy, Denies Hx Systemic Lupus Erythematosus Psychiatric Medical History: Reports: Hx Dementia, Hx Depression Denies: Hx Bipolar Disorder, Hx Post Traumatic Stress Disorder, Hx Schizophrenia Traumatic Medical History: Denies: Hx Fractures Infectious Medical History: Denies: Hx HIV Past Surgical History: Reports: Hx Cholecystectomy, Hx Hysterectomy. Denies: Hx Pacemaker - Immunizations Hx Diphtheria, Pertussis, Tetanus Vaccination: Yes Hx Pneumococcal Vaccination: 02/22/10 Review of Systems - Review of Systems Notes: REVIEW OF SYSTEMS: CONSTITUTIONAL : Denies fever, chills, or sweats. Denies recent illness. EENT: Denies eye, ear, throat, or mouth pain or symptoms. Denies nasal or sinus congestion. CARDIOVASCULAR: Denies chest pain. RESPIRATORY: Denies cough, cold, or chest congestion. Denies shortness of breath, difficulty breathing, or wheezing. GASTROINTESTINAL: Denies abdominal pain. Denies nausea, vomiting, does report diarrhea. Denies constipation. GENITOURINARY: Denies difficulty urinating, painful urination, burning, frequency, or blood in urine. MUSCULOSKELETAL: Denies neck or back pain or joint pain or swelling. SKIN: Denies rash or skin lesions. HEMATOLOGIC : Denies easy bruising or bleeding. NEUROLOGICAL: No report of loss of consciousness. Denies headache. Denies weakness or paralysis or loss of use of either side. Denies problems with gait or speech. Denies sensory or motor loss. However patient has had increased confusion over the past 24 to 48 hours. PSYCHIATRIC: Denies suicidal or homicidal ideations 10 Systems are negative unless otherwise specified above -: Yes All other systems reviewed and negative Physical Exam - Vital signs Vitals: Temp Pulse Ox 97.5 F 100 07/17/19 11:37 07/17/19 11:37 - Notes Notes: PHYSICAL EXAMINATION: GENERAL: Well-appearing, well-nourished and in no acute distress. Patient is pleasantly confused but does answer basic questions appropriately as to name age and date of but as to reason for being in the emergency department and recent history patient is confused HEAD: Atraumatic, normocephalic. EYES: Pupils equal round and reactive to light, extraocular movements intact, sclera anicteric, conjunctiva are normal. ENT: nares patent, oropharynx clear without exudates. Moist mucous membranes. NECK: Normal range of motion, supple without lymphadenopathy, no appreciable JVD LUNGS: Lungs clear to auscultation bilaterally and equal. No wheezes rales or rhonchi. HEART: Regular rate and rhythm without murmurs ABDOMEN: Soft, nontender, normal bowel sounds. No guarding, no rebound. No masses appreciated. EXTREMITIES: Active full range of motion, no pitting or edema. No cyanosis. 2+ pulses x4 NEUROLOGICAL: No focal neurological deficits. Moves all extremities s pontaneously and on command. Patient shows no focal neurologic deficit however as previously stated patient had difficulty with recent history and confusion. SKIN: Warm, Dry, and intact. Normal turgor, no rashes or lesions noted. Course - Re-evaluation Re-evalutation: 07/17/19 14:32 Patient has been reevaluated several times while in the emergency department the patient has remained stable without signs of decompensation. I did review laboratory and radiologic results with patient and family member. Patient is been found to have a urinary tract infection which would explain much of the patient's symptomatology. Patient was recently on Cipro and Levaquin at various times without resolution of symptoms and patient at this time will be started on Macrobid. Patient is instructed to follow-up with her primary care provider in the next 24 to 48 hours. I did also advise the patient's daughter to ensure proper nutrition and keep her blood glucose levels slightly higher than normal 06 13- 30 and consult with her primary care provider in regards to long-term alteration of medications. 07/17/19 16:52 A repeat BGL check demonstrated a BGL of 36. At this time I feel it would be unsafe to discharge the patient home. I spoke with the patient's primary care provider Dr. Sinclair who is agreeable with admission. Patient did receive dextrose 25 g p.o. and 1 L of normal saline. Repeat blood work will be accomplished to ascertain kidney function and potassium level as well as glucose level. Patient will be allowed to eat. Patient will receive 1 g of Rocephin IV for management of urinary tract infection. Patient is stable at time of admission. - Vital Signs Vital signs: Temp Pulse Resp BP Pulse Ox 97.5 F 20 130/45 H 100 07/17/19 11:37 07/17/19 16:00 07/17/19 16:01 07/17/19 16:01 - Laboratory Result Diagrams: 07/17/19 11:40 07/17/19 11:40 Laboratory results interpreted by me: 07/17/19 07/17/19 07/17/19 11:40 11:40 13:30 MCV 98 H MCH 33.6 H Lymph % (Auto) 12.2 L Sodium 135.1 L Potassium 5.8 H BUN 35 H Creatinine 1.47 H Est GFR ( Amer) 41 L Est GFR (MDRD) Non-Af 34 L AST 41 H Urine Protein 100 H Urine Blood SMALL H Ur Leukocyte Esterase LARGE H Urine Ascorbic Acid 40 H - Diagnostic Test Radiology reviewed: Reports reviewed Discharge - Discharge Clinical Impression: Hyperkalemia, Labile blood glucose UTI (urinary tract infection) Qualifiers: Urinary tract infection type: site unspecified Hematuria presence: without hematuria Qualified Code(s): N39.0 - Urinary tract infection, site not specified Condition: Stable Disposition: ADMITTED INPATIENT Admitting Provider: Sinclair Unit Admitted: Medical Floor Referrals: AZAEL MONTIEL PA-C [PHYSICIAN OCEAN EXPORT AGENT] - Follow up as needed
[2019-07-17 13:49] LABS: APPEARANCE,URINE TURBID; BILIRUBIN,URINE NEGATIVE (NEGATIVE); COLOR,URINE AMBER; GLUCOSE, URINE NEGATIVE (NEGATIVE); KETONES,URINE NEGATIVE (NEGATIVE); LEUKOCYTE ESTERASE,URINE LARGE (NEGATIVE); NITRITE,URINE NEGATIVE (NEGATIVE); PROTEIN,URINE 100 mg/dL (NEGATIVE); UROBILINOGEN,URINE NEGATIVE mg/dL (<2.0)
[2019-07-17] MEDS ORDERED: NORMAL SALINE 1000 ML 1,000 ML IV ONE (14:37)
[2019-07-17] MEDS ORDERED: DEXTROSE 50%-WATER 25 GM/50 ML DISP.SYRIN IV ONE (15:55)
[2019-07-17] MEDS ORDERED: ACETAMINOPHEN 325 MG TABLET PO PRN (16:51)
[2019-07-17] MEDS ORDERED: DEXTROSE 5%-1/2 NORMAL SALINE 1,000 ML IV PRN (16:51)
[2019-07-17] MEDS ORDERED: IPRATROPIUM/ALBUTEROL 0.5-2.5 MG/3 ML AMPUL NEB PRN (16:51)
[2019-07-17] MEDS ORDERED: CEFTRIAXONE 1 GM/D5W RTU 1 GM/50 ML RTUPB IV ONE (16:51)
[2019-07-17] MEDS ORDERED: ONDANSETRON HCL INJ/PF 4 MG/2 ML SDV IV PRN (16:51)
[2019-07-17 16:55] LABS: ANION GAP 7 (5-19); BLOOD UREA NITROGEN 29 mg/dL (7-20); CALCIUM 8.1 mg/dL (8.4-10.2); CARBON DIOXIDE 22 mmol/L (22-30); CHLORIDE 102 mmol/L (98-107); GLUCOSE 200 mg/dL (75-110)
[2019-07-17 17:08] LABS: POTASSIUM 3.9 mmol/L (3.6-5.0)
[2019-07-17 18:09] LABS: ANION GAP 7 (5-19); BLOOD UREA NITROGEN 28 mg/dL (7-20); CALCIUM 8.4 mg/dL (8.4-10.2); CARBON DIOXIDE 24 mmol/L (22-30); CHLORIDE 103 mmol/L (98-107); GLUCOSE 144 mg/dL (75-110); POTASSIUM 4.3 mmol/L (3.6-5.0)
[2019-07-17] MEDS: DOCUSATE SODIUM 100 MG CAPSULE PO SCH (19:04)
[2019-07-17] MEDS: CEFEPIME 1 GM/D5W RTU 1 GM/50 ML RTUPB IV SCH (22:45)
[2019-07-17] MEDS: HEPARIN SOD (PORCINE) 5,000 UNIT/ML 1 ML VIAL SUBCUT SCH (22:46)
[2019-07-17] MEDS: FAMOTIDINE 20 MG TABLET PO SCH (22:46)
[2019-07-18] MEDS: HEPARIN SOD (PORCINE) 5,000 UNIT/ML 1 ML VIAL SUBCUT SCH ×3 (05:18→21:25)
[2019-07-18 06:00] LABS: ABSOLUTE EOSINOPHILS # (AUTO) 0.2 10^3/uL (0.0-0.6); ABSOLUTE LYMPHOCYTES (AUTO) 1.4 10^3/uL (0.5-4.7); ABSOLUTE MONOCYTES (AUTO) 0.5 10^3/uL (0.1-1.4); ABSOLUTE NEUT (AUTO) 3.6 10^3/uL (1.7-8.2); BASOPHILS % (AUTO) 0.5 % (0-2); EOSINOPHILS % (AUTO) 3.3 % (0-6); HEMATOCRIT 32.1 % (36.0-47.0); HEMOGLOBIN 11.3 g/dL (12.0-15.5); MEAN CORPUSCULAR HEMOGLOBIN 34.2 pg (27.0-33.4); MEAN CORPUSCULAR HGB CONC 35.3 g/dL (32.0-36.0); MEAN CORPUSCULAR VOLUME 97 fl (80-97); MONOCYTES % (AUTO) 8.2 % (3-13); PLATELET COUNT 123 10^3/uL (150-450); RED BLOOD COUNT 3.31 10^6/uL (3.72-5.28); TOTAL CELLS COUNTED % (AUTO) 100 %; WHITE BLOOD COUNT 5.8 10^3/uL (4.0-10.5)
--- NOTE | 2019-07-18 08:58 | PDOC H&P ---
History of Present Illness Admission Date/PCP: 07/17/19 17:05 JOSE ENRIQUE LOVELACE MD Patient complains of: Altered mental status History of Present Illness: VEGA MARIO is a 84 year old female This is a 84-year-old female's with a history of recurrent urinary tract infections history of the type 2 diabetes hypertension hyperlipidemia dementia and multiple other comorbidity brought to the emergency department by the daughter with a complaining of her altered mental status According to the daughter patient's not active normally even patient have underlying dementia in the emergency department patient is found to be a renal failure hyperkalemia and hypoglycemia and urinary tract infections Patient was giving IV fluid IV antibiotics corrected the potassiums and admitting in the hospital for further evaluations When I saw the patient on the floor back to the baseline's alert awake oriented and patients have underlying dementia but act pretty normally as she comes in the office all the times Patient's denied any chest pain no short of breath no abdominal pain no back pain Patient's blood sugar is getting better currently running 150+ Past Medical History Cardiac Medical History: Reports: Hyperlipidema, Hypertension Denies: Atrial Fibrillation, Congestive Heart Failure, Coronary Artery Disease, Myocardial Infarction, Peripheral Vascular Disease, Heart Murmur Pulmonary Medical History: Reports: Pneumonia - hx, Sleep Apnea - USES MACHINE AT HOME "SOMETIMES" Denies: Asthma, Bronchitis, Chronic Obstructive Pulmonary Disease (COPD), Tuberculosis Neurological Medical History: Denies: Seizures Endocrine Medical History: Reports: Diabetes Mellitus Type 2 Denies: Hyperthyroidism, Hypothyroidism Renal/ Medical History: Reports: Chronic Kidney Disease Malignancy Medical History: Denies: Leukemia GI Medical History: Reports: Gastroesophageal Reflux Disease Musculoskeltal Medical History: Reports: Arthritis Denies: Fibromyalgia Psychiatric Medical History: Reports: Dementia, Depression Denies: Bipolar Disorder, Post Traumatic Stress Disorder Hematology: Reports: Anemia Denies: Hemophilia, Sickle Cell Disease Infectious Medical History: Denies: HIV Past Surgical History Past Surgical History: Reports: Cholecystectomy, Hysterectomy Denies: Amputation, Pacemaker Social History Information Source: Patient Lives with: Family, Other - Patient lives with daughter and her Smoking Status: Former Smoker Frequency of Alcohol Use: None Hx Recreational Drug Use: No Drugs: None Hx Prescription Drug Abuse: No Family History Family History: Reviewed & Not Pertinent Parental Family History Reviewed: Yes Children Family History Reviewed: Yes Sibling(s) Family History Reviewed.: Yes Medication/Allergy Allergies/Adverse Reactions: hydroxyzine HCl [From Vistaril] Allergy (Severe, Verified 10/01/18 15:48) swelling hydroxyzine pamoate [From Vistaril] Allergy (Severe, Verified 10/01/18 15:48) swelling strawberry Allergy (Intermediate, Verified 10/01/18 15:48) Urticaria Review of Systems Constitutional: ABSENT: chills, fever(s), headache(s), weight gain, weight loss Eyes: ABSENT: visual disturbances Ears: ABSENT: hearing changes Cardiovascular: ABSENT: chest pain, dyspnea on exertion, edema, orthropnea, palpitations Respiratory: ABSENT: cough, hemoptysis Gastrointestinal: ABSENT: abdominal pain, constipation, diarrhea, hematemesis, hematochezia, nausea, vomiting Genitourinary: ABSENT: dysuria, hematuria Musculoskeletal: ABSENT: joint swelling Integumentary: ABSENT: rash, wounds Neurological: ABSENT: abnormal gait, abnormal speech, confusion, dizziness, focal weakness, syncope Psychiatric: ABSENT: anxiety, depression, homidical ideation, suicidal ideation Endocrine: ABSENT: cold intolerance, heat intolerance, menstrual abnormalities, polydipsia, polyuria Hematologic/Lymphatic: ABSENT: easy bleeding, easy bruising, lymphadenopathy Physical Exam Vital Signs: Temp Pulse Resp BP Pulse Ox 98.1 F 59 L 20 126/50 H 98 07/18/19 07:43 07/18/19 07:43 07/18/19 07:43 07/18/19 07:43 07/18/19 07:43 Intake & Output 07/17/19 07/18/19 07/19/19 06:59 06:59 06:59 Intake Total 1150 Balance 1150 Weight 61.1 kg General appearance: PRESENT: no acute distress, well-developed, well-nourished Head exam: PRESENT: atraumatic, normocephalic Eye exam: PRESENT: conjunctiva pink, EOMI, PERRLA. ABSENT: scleral icterus Ear exam: PRESENT: normal external ear exam Mouth exam: PRESENT: moist, tongue midline Neck exam: PRESENT: full ROM. ABSENT: carotid bruit, JVD, lymphadenopathy, thyromegaly Respiratory exam: PRESENT: clear to auscultation cheli Cardiovascular exam: PRESENT: RRR. ABSENT: diastolic murmur, rubs, systolic murmur Pulses: PRESENT: normal dorsalis pedis pul, +2 pedal pulses bilateral Vascular exam: PRESENT: normal capillary refill GI/Abdominal exam: PRESENT: normal bowel sounds, soft. ABSENT: distended, guarding, mass, organolmegaly, rebound, tenderness Rectal exam: PRESENT: deferred Musculoskeletal exam: PRESENT: ambulatory Neurological exam: PRESENT: alert, awake, oriented to person, oriented to place, oriented to situation, CN II-XII grossly intact. ABSENT: motor sensory deficit Psychiatric exam: PRESENT: appropriate affect, normal mood. ABSENT: homicidal ideation, suicidal ideation Skin exam: PRESENT: dry, intact, warm. ABSENT: cyanosis, rash Results Laboratory Results: 07/18/19 04:27 07/17/19 17:37 07/17/19 07/17/19 07/17/19 11:40 11:40 13:30 WBC 8.3 RBC 3.87 Hgb 13.0 Hct 37.9 MCV 98 H MCH 33.6 H MCHC 34.3 RDW 13.2 Plt Count 166 Seg Neutrophils % 78.0 Sodium 135.1 L Potassium 5.8 H Chloride 99 Carbon Dioxide 22 Anion Gap 14 BUN 35 H Creatinine 1.47 H Est GFR ( Amer) 41 L Glucose 102 Calcium 9.3 Total Bilirubin 0.6 AST 41 H Alkaline Phosphatase 92 Total Protein 8.0 Albumin 4.7 Urine Color CHAVEZ Urine Appearance TURBID Urine pH 6.0 Ur Specific Conway 1.010 Urine Protein 100 H Urine Glucose (UA) NEGATIVE Urine Ketones NEGATIVE Urine Blood SMALL H Urine Nitrite NEGATIVE Ur Leukocyte Esterase LARGE H Urine WBC (Auto) 102 Urine RBC (Auto) 74 07/17/19 07/17/19 07/18/19 16:12 17:37 04:27 WBC 5.8 RBC 3.31 L Hgb 11.3 L Hct 32.1 L MCV 97 MCH 34.2 H MCHC 35.3 RDW 13.0 Plt Count 123 L Seg Neutrophils % 63.0 Sodium 131.3 L 134.2 L Potassium 3.9 D 4.3 Chloride 102 103 Carbon Dioxide 22 24 Anion Gap 7 7 BUN 29 H 28 H Creatinine 1.27 H 1.27 H Est GFR ( Amer) 49 L 49 L Glucose 200 H 144 H Calcium 8.1 L 8.4 Total Bilirubin AST Alkaline Phosphatase Total Protein Albumin Urine Color Urine Appearance Urine pH Ur Specific Conway Urine Protein Urine Glucose (UA) Urine Ketones Urine Blood Urine Nitrite Ur Leukocyte Esterase Urine WBC (Auto) Urine RBC (Auto) 07/17/19 11:40 Troponin I < 0.012 Impressions: Chest X-Ray 07/17/19 11:50 IMPRESSION: NO ACUTE RADIOGRAPHIC FINDING IN THE CHEST. Assessment & Plan - Diagnosis (1) UTI (urinary tract infection) Qualifiers: Urinary tract infection type: site unspecified Hematuria presence: without hematuria Qualified Code(s): N39.0 - Urinary tract infection, site not spec ified Is this a current diagnosis for this admission?: Yes Plan: Start the patient on IV antibiotic and wait for the cultures (2) Hyperkalemia Is this a current diagnosis for this admission?: Yes Plan: Currently all resolved (3) Acute renal failure Qualifiers: Acute renal failure type: unspecified Qualified Code(s): N17.9 - Acute kidney failure, unspecified Is this a current diagnosis for this admission?: Yes Plan: Continues to IV fluid (4) Anxiety disorder Qualifiers: Anxiety disorder type: generalized anxiety disorder Is this a current diagnosis for this admission?: Yes (5) Dementia Qualifiers: Dementia type: unspecified type Dementia behavioral disturbance: without behavioral disturbance Qualified Code(s): F03.90 - Unspecified dementia without behavioral disturbance Is this a current diagnosis for this admission?: Yes (6) Diabetes mellitus type 2 in nonobese Is this a current diagnosis for this admission?: Yes Plan: Will continues a sliding scale readjust the current medications (7) GERD (gastroesophageal reflux disease) Qualifiers: Esophagitis presence: without esophagitis Qualified Code(s): K21.9 - Gastro-esophageal reflux disease without esophagitis Is this a current diagnosis for this admission?: Yes (8) HLD (hyperlipidemia) Qualifiers: Hyperlipidemia type: unspecified Is this a current diagnosis for this admission?: Yes (9) History of cerebrovascular disease Is this a current diagnosis for this admission?: Yes - Time Time Spent: 30 to 50 Minutes Medications reviewed and adjusted accordingly: Yes Anticipated discharge: Home with Homehealth Within: Other - Inpatient Certification Based on my medical assessment, after consideration of the patient's comorbidities, presenting symptoms, or acuity I expect that the services needed warrant INPATIENT care.: Yes I certify that my determination is in accordance with my understanding of Medicare's requirements for reasonable and necessary INPATIENT services [42 CFR 412.3e].: Yes Medical Necessity: Failure to Improve With Outpatient Therapy, Significant Comorbidiites Make Outpatient Treatment Too Risky, Need For IV Fluids, Need for IV Antibiotics Post Hospital Care: D/C Information Engineer Documentation - Plan Summary Plan Summary: Admit the patient in the medical floor start on IV fluid IV antibiotic physical therapy evaluations
[2019-07-18] MEDS ORDERED: DEXTROSE 40% GEL 15 GM TUBE X 2 PO PRN (09:00)
[2019-07-18] MEDS ORDERED: DEXTROSE 50%-WATER SYRINGE 12.5 GM/25 ML DOSE IV PRN (09:00)
[2019-07-18] MEDS ORDERED: DEXTROSE 50%-WATER SYRINGE 25 GM/50 ML DOSE IV PRN (09:00)
[2019-07-18] MEDS ORDERED: DEXTROSE 40% GEL 15 GM TUBE PO PRN (09:00)
[2019-07-18] MEDS ORDERED: GLUCAGON,HUMAN RECOMB 1 MG INJ IM PRN (09:00)
[2019-07-18] MEDS: FAMOTIDINE 20 MG TABLET PO SCH ×2 (09:05→21:31)
[2019-07-18] MEDS: NORMAL SALINE 1000 ML 1,000 ML IV PRN (09:05)
[2019-07-18] MEDS: DOCUSATE SODIUM 100 MG CAPSULE PO SCH ×2 (09:05→17:20)
[2019-07-18] MEDS: CEFEPIME 1 GM/D5W RTU 1 GM/50 ML RTUPB IV SCH ×2 (09:05→21:32)
[2019-07-18] MEDS: INSULIN LISPRO 100 UNIT/ML 3 ML VIAL SUBCUT SCH ×3 (11:41→21:26)
[2019-07-18] MEDS ORDERED: ACETAMINOPHEN 650 MG PO PRN (19:47)
[2019-07-18] MEDS: NATEGLINIDE 60 MG TABLET PO SCH (21:26)
[2019-07-18] MEDS: DONEPEZIL HCL 5 MG TABLET PO SCH (21:29)
[2019-07-18] MEDS: MEMANTINE HCL 10 MG TABLET PO SCH (21:30)
[2019-07-18] MEDS: BUSPIRONE HCL 10 MG TABLET PO SCH (21:31)
[2019-07-18] MEDS: ATORVASTATIN CALCIUM 10 MG TABLET PO SCH (21:31)
[2019-07-19 05:05] LABS: ABSOLUTE EOSINOPHILS # (AUTO) 0.2 10^3/uL (0.0-0.6); ABSOLUTE LYMPHOCYTES (AUTO) 1.5 10^3/uL (0.5-4.7); ABSOLUTE MONOCYTES (AUTO) 0.5 10^3/uL (0.1-1.4); BASOPHILS % (AUTO) 0.4 % (0-2); EOSINOPHILS % (AUTO) 3.9 % (0-6); HEMOGLOBIN 12.2 g/dL (12.0-15.5); LYMPHOCYTES % (AUTO) 23.8 % (13-45); MEAN CORPUSCULAR HGB CONC 34.8 g/dL (32.0-36.0); MEAN CORPUSCULAR VOLUME 98 fl (80-97); MONOCYTES % (AUTO) 8.5 % (3-13); PLATELET COUNT 134 10^3/uL (150-450); RED BLOOD COUNT 3.59 10^6/uL (3.72-5.28); RED CELL DISTRIBUTION WIDTH 13.1 % (11.5-14.0); SEGMENTED NEUTROPHILS % (AUTO) 63.4 % (42-78); TOTAL CELLS COUNTED % (AUTO) 100 %; WHITE BLOOD COUNT 6.2 10^3/uL (4.0-10.5)
[2019-07-19 05:35] LABS: ANION GAP 10 (5-19); BLOOD UREA NITROGEN 27 mg/dL (7-20); CARBON DIOXIDE 21 mmol/L (22-30); CHLORIDE 105 mmol/L (98-107); GLUCOSE 106 mg/dL (75-110); POTASSIUM 4.9 mmol/L (3.6-5.0)
[2019-07-19] MEDS: BUSPIRONE HCL 10 MG TABLET PO SCH ×3 (05:42→21:29)
[2019-07-19] MEDS: HEPARIN SOD (PORCINE) 5,000 UNIT/ML 1 ML VIAL SUBCUT SCH ×3 (05:42→21:25)
[2019-07-19] MEDS: NORMAL SALINE 1000 ML 1,000 ML IV PRN ×2 (05:43→21:30)
[2019-07-19] MEDS: LEVOTHYROXINE SODIUM 0.025 MG TABLET PO SCH (05:43)
[2019-07-19] MEDS: INSULIN LISPRO 100 UNIT/ML 3 ML VIAL SUBCUT SCH ×4 (08:48→21:26)
[2019-07-19] MEDS: ASCORBIC ACID 500 MG TABLET PO SCH (09:06)
[2019-07-19] MEDS: MULTIVITAMIN TABLET PO SCH (09:06)
[2019-07-19] MEDS: METOPROLOL SUCCINATE 50 MG TAB.SR.24H PO SCH (09:06)
[2019-07-19] MEDS: FAMOTIDINE 20 MG TABLET PO SCH ×2 (09:06→21:30)
[2019-07-19] MEDS: HYDROCHLOROTHIAZIDE 25 MG TABLET PO SCH (09:06)
[2019-07-19] MEDS: PANTOPRAZOLE SODIUM 20 MG TABLET.DR PO SCH (09:06)
[2019-07-19] MEDS: CLOPIDOGREL BISULFATE 75 MG TABLET PO SCH (09:06)
[2019-07-19] MEDS: ESCITALOPRAM OXALATE 10 MG TABLET PO SCH (09:07)
[2019-07-19] MEDS: DOCUSATE SODIUM 100 MG CAPSULE PO SCH ×2 (09:07→17:00)
[2019-07-19] MEDS: CHOLECALCIFEROL (D3) 1,000 UNIT (25 MCG) TABLET PO SCH (09:07)
[2019-07-19] MEDS: VALSARTAN 80 MG TABLET PO SCH (09:07)
[2019-07-19] MEDS: MEMANTINE HCL 10 MG TABLET PO SCH ×2 (09:07→21:29)
[2019-07-19] MEDS: AMLODIPINE BESYLATE 2.5 MG TABLET PO SCH (09:07)
[2019-07-19] MEDS: FERROUS SULFATE 325 MG TABLET PO SCH (09:07)
[2019-07-19] MEDS: LORATADINE 10 MG TABLET PO SCH (09:07)
[2019-07-19] MEDS: FLUTICASONE NASAL SPRAY 50 MCG/SPRY 120 SPRAY/16 GM NASL SCH (09:08)
[2019-07-19] MEDS: NATEGLINIDE 60 MG TABLET PO SCH ×2 (09:08→21:25)
[2019-07-19] MEDS: SIMETHICONE 80 MG TAB.CHEW PO SCH (09:08)
[2019-07-19] MEDS: CEFEPIME 1 GM/D5W RTU 1 GM/50 ML RTUPB IV SCH ×2 (09:09→21:30)
[2019-07-19] MEDS ORDERED: (PENDING PHARMACY ID) (Multivit With Calcium,Iron,Min [Multiple Vitamins For Women] 1 EACH PO SCH (10:00)
[2019-07-19] MEDS ORDERED: (PENDING PHARMACY ID) (Saccharomyces Boulardii [Florastor] 250 MG) PO SCH (10:00)
[2019-07-19] MEDS ORDERED: (PENDING PHARMACY ID) (Simethicone [Gas Relief] 125 MG) PO SCH (10:00)
[2019-07-19] MEDS ORDERED: FEXOFENADINE HCL 180 MG PO SCH (10:00)
--- NOTE | 2019-07-19 11:11 | PDOC PROGRESS REPORT ---
Subjective Progress Note for:: 07/19/19 Subjective:: Patient is currently doing well Patient's denied any chest pain denied any shortness of the breath Reason For Visit: UTI,RENAL FAILURE Physical Exam Vital Signs: Temp Pulse Resp BP Pulse Ox 98.1 F 64 19 129/65 H 95 07/19/19 08:04 07/19/19 08:04 07/19/19 08:04 07/19/19 08:04 07/19/19 08:04 Intake & Output 07/18/19 07/19/19 07/20/19 06:59 06:59 06:59 Intake Total 1150 3170 Balance 1150 3170 Weight 61.1 kg 60.8 kg General appearance: PRESENT: no acute distress, well-developed, well-nourished Head exam: PRESENT: atraumatic, normocephalic Eye exam: PRESENT: conjunctiva pink, EOMI, PERRLA. ABSENT: scleral icterus Ear exam: PRESENT: normal external ear exam Mouth exam: PRESENT: moist, tongue midline Neck exam: PRESENT: full ROM. ABSENT: carotid bruit, JVD, lymphadenopathy, thyromegaly Respiratory exam: PRESENT: clear to auscultation cheli Cardiovascular exam: PRESENT: RRR. ABSENT: diastolic murmur, rubs, systolic murmur Pulses: PRESENT: normal dorsalis pedis pul, +2 pedal pulses bilateral Vascular exam: PRESENT: normal capillary refill GI/Abdominal exam: PRESENT: normal bowel sounds, soft. ABSENT: distended, guarding, mass, organolmegaly, rebound, tenderness Rectal exam: PRESENT: deferred Neurological exam: PRESENT: alert, awake, oriented to person, oriented to place, oriented to time, oriented to situation, CN II-XII grossly intact. ABSENT: motor sensory deficit Psychiatric exam: PRESENT: appropriate affect, normal mood. ABSENT: homicidal ideation, suicidal ideation Skin exam: PRESENT: dry, intact, warm. ABSENT: cyanosis, rash Results Laboratory Results: 07/19/19 04:15 07/19/19 04:15 07/19/19 07/19/19 04:15 04:15 WBC 6.2 RBC 3.59 L Hgb 12.2 Hct 35.0 L MCV 98 H MCH 34.0 H MCHC 34.8 RDW 13.1 Plt Count 134 L Seg Neutrophils % 63.4 Sodium 136.1 L Potassium 4.9 Chloride 105 Carbon Dioxide 21 L Anion Gap 10 BUN 27 H Creatinine 1.19 Est GFR ( Amer) 53 L Glucose 106 Calcium 9.0 07/17/19 17:37 Blood Blood Culture (PCR) - Final Staphylococcus Species 07/17/19 13:30 Clean Catch Midstream Urine Culture - Final Escherichia Coli 07/17/19 11:40 Troponin I < 0.012 Impressions: Chest X-Ray 07/17/19 11:50 IMPRESSION: NO ACUTE RADIOGRAPHIC FINDING IN THE CHEST. Assessment & Plan - Diagnosis (1) UTI (urinary tract infection) Qualifiers: Urinary tract infection type: site unspecified Hematuria presence: without hematuria Qualified Code(s): N39.0 - Urinary tract infection, site not specified Is this a current diagnosis for this admission?: Yes (2) Hyperkalemia Is this a current diagnosis for this admission?: Yes (3) Acute renal failure Qualifiers: Acute renal failure type: unspecified Qualified Code(s): N17.9 - Acute kidney failure, unspecified Is this a current diagnosis for this admission?: Yes (4) Anxiety disorder Qualifiers: Anxiety disorder type: generalized anxiety disorder Is this a current diagnosis for this admission?: Yes (5) Dementia Qualifiers: Dementia type: unspecified type Dementia behavioral disturbance: without behavioral disturbance Qualified Code(s): F03.90 - Unspecified dementia without behavioral disturbance Is this a current diagnosis for this admission?: Yes (6) Diabetes mellitus type 2 in nonobese Is this a current diagnosis for this admission?: Yes (7) GERD (gastroesophageal reflux disease) Qualifiers: Esophagitis presence: without esophagitis Qualified Code(s): K21.9 - Gastro-esophageal reflux disease without esophagitis Is this a current diagnosis for this admission?: Yes (8) HLD (hyperlipidemia) Qualifiers: Hyperlipidemia type: unspecified Is this a current diagnosis for this admission?: Yes (9) History of cerebrovascular disease Is this a current diagnosis for this admission?: Yes - Time Time Spent with patient: 15-24 minutes Level of Care: TELE Medications reviewed and adjusted accordingly: Yes Anticipated discharge: Home with Homehealth Within: Other - Plan Summary Plan Summary: Continues the IV antibiotic
[2019-07-19] MEDS: DONEPEZIL HCL 5 MG TABLET PO SCH (21:29)
[2019-07-19] MEDS: ATORVASTATIN CALCIUM 10 MG TABLET PO SCH (21:29)
[2019-07-20 05:11] LABS: ABSOLUTE EOSINOPHILS # (AUTO) 0.3 10^3/uL (0.0-0.6); ABSOLUTE LYMPHOCYTES (AUTO) 1.3 10^3/uL (0.5-4.7); ABSOLUTE MONOCYTES (AUTO) 0.5 10^3/uL (0.1-1.4); ABSOLUTE NEUT (AUTO) 3.8 10^3/uL (1.7-8.2); BASOPHILS % (AUTO) 0.4 % (0-2); EOSINOPHILS % (AUTO) 4.6 % (0-6); HEMATOCRIT 33.7 % (36.0-47.0); HEMOGLOBIN 11.5 g/dL (12.0-15.5); LYMPHOCYTES % (AUTO) 21.9 % (13-45); MEAN CORPUSCULAR HEMOGLOBIN 33.5 pg (27.0-33.4); MEAN CORPUSCULAR HGB CONC 33.9 g/dL (32.0-36.0); MEAN CORPUSCULAR VOLUME 99 fl (80-97); MONOCYTES % (AUTO) 8.8 % (3-13); PLATELET COUNT 115 10^3/uL (150-450); RED BLOOD COUNT 3.42 10^6/uL (3.72-5.28); RED CELL DISTRIBUTION WIDTH 13.1 % (11.5-14.0); SEGMENTED NEUTROPHILS % (AUTO) 64.3 % (42-78); TOTAL CELLS COUNTED % (AUTO) 100 %; WHITE BLOOD COUNT 5.9 10^3/uL (4.0-10.5)
[2019-07-20] MEDS: HEPARIN SOD (PORCINE) 5,000 UNIT/ML 1 ML VIAL SUBCUT SCH ×3 (05:11→21:43)
[2019-07-20] MEDS: LEVOTHYROXINE SODIUM 0.025 MG TABLET PO SCH (05:22)
[2019-07-20] MEDS: BUSPIRONE HCL 10 MG TABLET PO SCH ×3 (05:22→21:42)
[2019-07-20 05:30] LABS: ANION GAP 12 (5-19); BLOOD UREA NITROGEN 25 mg/dL (7-20); CARBON DIOXIDE 19 mmol/L (22-30); CHLORIDE 106 mmol/L (98-107); GLUCOSE 142 mg/dL (75-110)
[2019-07-20] MEDS: INSULIN LISPRO 100 UNIT/ML 3 ML VIAL SUBCUT SCH ×4 (07:42→21:43)
--- NOTE | 2019-07-20 09:07 | PDOC PROGRESS REPORT ---
Subjective Progress Note for:: 07/20/19 Subjective:: Patient is currently doing well Patient's denied any chest pain denied any shortness of the breath Reason For Visit: UTI,RENAL FAILURE Physical Exam Vital Signs: Temp Pulse Resp BP Pulse Ox 98.0 F 64 16 162/53 H 99 07/20/19 08:00 07/20/19 08:00 07/20/19 08:00 07/20/19 08:00 07/20/19 08:00 Intake & Output 07/19/19 07/20/19 07/21/19 06:59 06:59 06:59 Intake Total 3170 2157 Balance 3170 2157 Weight 60.8 kg 61 kg General appearance: PRESENT: no acute distress, well-developed, well-nourished Head exam: PRESENT: atraumatic, normocephalic Eye exam: PRESENT: conjunctiva pink, EOMI, PERRLA. ABSENT: scleral icterus Ear exam: PRESENT: normal external ear exam Mouth exam: PRESENT: moist, tongue midline Neck exam: PRESENT: full ROM. ABSENT: carotid bruit, JVD, lymphadenopathy, th yromegaly Respiratory exam: PRESENT: clear to auscultation cheli Cardiovascular exam: PRESENT: RRR. ABSENT: diastolic murmur, rubs, systolic murmur Vascular exam: PRESENT: normal capillary refill GI/Abdominal exam: PRESENT: normal bowel sounds, soft. ABSENT: distended, guarding, mass, organolmegaly, rebound, tenderness Rectal exam: PRESENT: deferred Neurological exam: PRESENT: alert, awake, oriented to person, oriented to place, oriented to time, oriented to situation, CN II-XII grossly intact. ABSENT: motor sensory deficit Psychiatric exam: PRESENT: appropriate affect, normal mood. ABSENT: homicidal ideation, suicidal ideation Skin exam: PRESENT: dry, intact, warm. ABSENT: cyanosis, rash Results Laboratory Results: 07/20/19 04:06 07/20/19 04:06 07/20/19 07/20/19 04:06 04:06 WBC 5.9 RBC 3.42 L Hgb 11.5 L Hct 33.7 L MCV 99 H MCH 33.5 H MCHC 33.9 RDW 13.1 Plt Count 115 L Seg Neutrophils % 64.3 Sodium 136.8 L Potassium 5.0 Chloride 106 Carbon Dioxide 19 L Anion Gap 12 BUN 25 H Creatinine 1.30 H Est GFR ( Amer) 47 L Glucose 142 H Calcium 9.0 07/17/19 17:37 Blood Blood Culture (PCR) - Final Staphylococcus Species 07/17/19 13:30 Clean Catch Midstream Urine Culture - Final Escherichia Coli 07/17/19 11:40 Troponin I < 0.012 Impressions: Chest X-Ray 07/17/19 11:50 IMPRESSION: NO ACUTE RADIOGRAPHIC FINDING IN THE CHEST. Assessment & Plan - Diagnosis (1) UTI (urinary tract infection) Qualifiers: Urinary tract infection type: site unspecified Hematuria presence: without hematuria Qualified Code(s): N39.0 - Urinary tract infection, site not specified Is this a current diagnosis for this admission?: Yes (2) Hyperkalemia Is this a current diagnosis for this admission?: Yes (3) Acute renal failure Qualifiers: Acute renal failure type: unspecified Qualified Code(s): N17.9 - Acute kidney failure, unspecified Is this a current diagnosis for this admission?: Yes (4) Anxiety disorder Qualifiers: Anxiety disorder type: generalized anxiety disorder Is this a current diagnosis for this admission?: Yes (5) Dementia Qualifiers: Dementia type: unspecified type Dementia behavioral disturbance: without behavioral disturbance Qualified Code(s): F03.90 - Unspecified dementia without behavioral disturbance Is this a current diagnosis for this admission?: Yes (6) Diabetes mellitus type 2 in nonobese Is this a current diagnosis for this admission?: Yes (7) GERD (gastroesophageal reflux disease) Qualifiers: Esophagitis presence: without esophagitis Qualified Code(s): K21.9 - Gastro-esophageal reflux disease without esophagitis Is this a current diagnosis for this admission?: Yes (8) HLD (hyperlipidemia) Qualifiers: Hyperlipidemia type: unspecified Is this a current diagnosis for this admission?: Yes (9) History of cerebrovascular disease Is this a current diagnosis for this admission?: Yes - Time Time Spent with patient: 15-24 minutes Level of Care: TELE Medications reviewed and adjusted accordingly: Yes Anticipated discharge: Home with Homehealth Within: within 24 hours - Plan Summary Plan Summary: Continues the IV antibiotics will switch to the p.o. antibiotics tomorrow and discharge if he remains stable
[2019-07-20] MEDS: HYDROCHLOROTHIAZIDE 25 MG TABLET PO SCH (09:13)
[2019-07-20] MEDS: LORATADINE 10 MG TABLET PO SCH (09:14)
[2019-07-20] MEDS: MULTIVITAMIN TABLET PO SCH (09:14)
[2019-07-20] MEDS: ASCORBIC ACID 500 MG TABLET PO SCH (09:14)
[2019-07-20] MEDS: DOCUSATE SODIUM 100 MG CAPSULE PO SCH ×2 (09:14→17:04)
[2019-07-20] MEDS: PANTOPRAZOLE SODIUM 20 MG TABLET.DR PO SCH (09:14)
[2019-07-20] MEDS: VALSARTAN 80 MG TABLET PO SCH (09:14)
[2019-07-20] MEDS: MEMANTINE HCL 10 MG TABLET PO SCH ×2 (09:14→21:41)
[2019-07-20] MEDS: CLOPIDOGREL BISULFATE 75 MG TABLET PO SCH (09:14)
[2019-07-20] MEDS: FAMOTIDINE 20 MG TABLET PO SCH ×2 (09:14→21:42)
[2019-07-20] MEDS: FERROUS SULFATE 325 MG TABLET PO SCH (09:14)
[2019-07-20] MEDS: CHOLECALCIFEROL (D3) 1,000 UNIT (25 MCG) TABLET PO SCH (09:14)
[2019-07-20] MEDS: METOPROLOL SUCCINATE 50 MG TAB.SR.24H PO SCH (09:16)
[2019-07-20] MEDS: FLUTICASONE NASAL SPRAY 50 MCG/SPRY 120 SPRAY/16 GM NASL SCH (09:16)
[2019-07-20] MEDS: ESCITALOPRAM OXALATE 10 MG TABLET PO SCH (09:16)
[2019-07-20] MEDS: CEFEPIME 1 GM/D5W RTU 1 GM/50 ML RTUPB IV SCH ×2 (09:17→21:44)
[2019-07-20] MEDS: SIMETHICONE 80 MG TAB.CHEW PO SCH (09:19)
[2019-07-20] MEDS: AMLODIPINE BESYLATE 2.5 MG TABLET PO SCH (09:19)
[2019-07-20] MEDS: NATEGLINIDE 60 MG TABLET PO SCH ×2 (09:20→21:43)
[2019-07-20] MEDS: NORMAL SALINE 1000 ML 1,000 ML IV PRN (15:11)
[2019-07-20] MEDS: ATORVASTATIN CALCIUM 10 MG TABLET PO SCH (21:42)
[2019-07-20] MEDS: DONEPEZIL HCL 5 MG TABLET PO SCH (21:43)
[2019-07-21] MEDS: HEPARIN SOD (PORCINE) 5,000 UNIT/ML 1 ML VIAL SUBCUT SCH ×2 (05:07→13:20)
[2019-07-21] MEDS: LEVOTHYROXINE SODIUM 0.025 MG TABLET PO SCH (05:14)
[2019-07-21] MEDS: NORMAL SALINE 1000 ML 1,000 ML IV PRN (05:14)
[2019-07-21] MEDS: BUSPIRONE HCL 10 MG TABLET PO SCH ×2 (05:14→13:58)
[2019-07-21 05:51] LABS: ANION GAP 9 (5-19); BLOOD UREA NITROGEN 25 mg/dL (7-20); CALCIUM 8.7 mg/dL (8.4-10.2); CARBON DIOXIDE 23 mmol/L (22-30); CHLORIDE 104 mmol/L (98-107); GLUCOSE 132 mg/dL (75-110)
[2019-07-21] MEDS: INSULIN LISPRO 100 UNIT/ML 3 ML VIAL SUBCUT SCH ×3 (08:35→17:01)
[2019-07-21] MEDS: DOCUSATE SODIUM 100 MG CAPSULE PO SCH ×2 (09:18→17:01)
[2019-07-21] MEDS: MULTIVITAMIN TABLET PO SCH (09:24)
[2019-07-21] MEDS: CHOLECALCIFEROL (D3) 1,000 UNIT (25 MCG) TABLET PO SCH (09:25)
[2019-07-21] MEDS: HYDROCHLOROTHIAZIDE 25 MG TABLET PO SCH (09:25)
[2019-07-21] MEDS: METOPROLOL SUCCINATE 50 MG TAB.SR.24H PO SCH (09:25)
[2019-07-21] MEDS: PANTOPRAZOLE SODIUM 20 MG TABLET.DR PO SCH (09:25)
[2019-07-21] MEDS: FLUTICASONE NASAL SPRAY 50 MCG/SPRY 120 SPRAY/16 GM NASL SCH (09:25)
[2019-07-21] MEDS: FERROUS SULFATE 325 MG TABLET PO SCH (09:26)
[2019-07-21] MEDS: ASCORBIC ACID 500 MG TABLET PO SCH (09:26)
[2019-07-21] MEDS: ESCITALOPRAM OXALATE 10 MG TABLET PO SCH (09:26)
[2019-07-21] MEDS: MEMANTINE HCL 10 MG TABLET PO SCH (09:26)
[2019-07-21] MEDS: FAMOTIDINE 20 MG TABLET PO SCH (09:26)
[2019-07-21] MEDS: VALSARTAN 80 MG TABLET PO SCH (09:27)
[2019-07-21] MEDS: CEFEPIME 1 GM/D5W RTU 1 GM/50 ML RTUPB IV SCH (09:27)
[2019-07-21] MEDS: SIMETHICONE 80 MG TAB.CHEW PO SCH (09:27)
[2019-07-21] MEDS: LORATADINE 10 MG TABLET PO SCH (09:27)
[2019-07-21] MEDS: CLOPIDOGREL BISULFATE 75 MG TABLET PO SCH (09:27)
[2019-07-21] MEDS: AMLODIPINE BESYLATE 2.5 MG TABLET PO SCH (09:28)
[2019-07-21] MEDS: NATEGLINIDE 60 MG TABLET PO SCH (09:28)
[2019-07-21] MEDS ORDERED: LACTOBACILLUS ACIDOPHILUS 250 MG TAB PO SCH (10:00)
--- NOTE | 2019-07-21 11:26 | PDOC DISCHARGE SUMMARY ---
Impression - Admit/DC Date/PCP Admission Date/Primary Care Provider: 07/17/19 17:05 JOSE ENRIQUE LOVELACE MD Discharge Date: 07/21/19 - Discharge Diagnosis (1) UTI (urinary tract infection) Is this a current diagnosis for this admission?: Yes (2) Hyperkalemia Is this a current diagnosis for this admission?: Yes (3) Acute renal failure Is this a current diagnosis for this admission?: Yes (4) Anxiety disorder Is this a current diagnosis for this admission?: Yes (5) Dementia Is this a current diagnosis for this admission?: Yes (6) Diabetes mellitus type 2 in nonobese Is this a current diagnosis for this admission?: Yes (7) GERD (gastroesophageal reflux disease) Is this a current diagnosis for this admission?: Yes (8) HLD (hyperlipidemia) Is this a current diagnosis for this admission?: Yes (9) History of cerebrovascular disease Is this a current diagnosis for this admission?: Yes - Additional Information Discharge Diet: Diabetic Discharge Activity: Activity As Tolerated Referrals: JOSE ENRIQUE LOVELACE MD [Primary Care Provider] - 07/26/19 4:00 pm Prescriptions: Cephalexin Monohydrate [Keflex 500 mg Capsule] 500 mg PO BID #14 capsule Home Medications: Acetaminophen [Tylenol Arthritis] 650 mg PO DAILYP PRN 07/18/19 Amlodipine Besylate [Norvasc 2.5 mg Tablet] 2.5 mg PO DAILY 07/18/19 Ascorbic Acid [Vitamin C 500 mg Tablet] 500 mg PO DAILY 07/18/19 Atorvastatin Calcium [Lipitor 10 mg Tablet] 10 mg PO QHS 07/18/19 Buspirone HCl 5 mg PO TID 07/18/19 Cholecalciferol (Vitamin D3) [Vitamin D3 1000 Unit Tablet] 1,000 unit PO DAILY 07/18/19 Clopidogrel Bisulfate [Plavix 75 mg Tablet] 75 mg PO DAILY 07/18/19 Donepezil HCl [Donepezil HCl Odt] 10 mg PO QHS 07/18/19 Escitalopram Oxalate [Lexapro 10 mg Tablet] 20 mg PO DAILY 07/18/19 Ferrous Sulfate [Feosol 325 mg Tablet] 325 mg PO DAILY 07/18/19 Fexofenadine HCl [Aller-Ease] 180 mg PO DAILY 07/18/19 Fluticasone Propionate [Flonase Nasal Magness 50 Mcg/Magness 16 gm] 1 spray NASL DAILY 07/18/19 Hydrochlorothiazide [Hydrodiuril 25 mg Tablet] 12.5 mg PO DAILY 07/18/19 Levothyroxine Sodium [Synthroid 0.025 mg Tablet] 25 mcg PO DAILY 07/18/19 Memantine HCl [Namenda] 5 mg PO Q12 07/18/19 Metoprolol Succinate [Toprol Xl 50 mg Tab.sr] 50 mg PO DAILY 07/18/19 Multivit with Calcium,Iron,Min [Multiple Vitamins For Women] 1 each PO DAILY 07/18/19 Nateglinide [Starlix] 60 mg PO Q12 07/18/19 Pantoprazole Sodium [Protonix [address] Tablet] 20 mg PO QAM 07/18/19 Saccharomyces Boulardii [Florastor] 250 mg PO DAILY 07/18/19 Simethicone [Gas Relief] 125 mg PO DAILY 07/18/19 Valsartan [Diovan 80 mg Tablet] 80 mg PO DAILY 07/18/19 Cephalexin Monohydrate [Keflex 500 mg Capsule] 500 mg PO BID #14 capsule 07/21/19 History of Present Illiness History of Present Illness: VEGA MARIO is a 84 year old female This is a 84-year-old female's with a history of recurrent urinary tract infections history of the type 2 diabetes hypertension hyperlipidemia dementia and multiple other comorbidity brought to the emergency department by the daughter with a complaining of her altered mental status According to the daughter patient's not active normally even patient have underlying dementia in the emergency department patient is found to be a renal failure hyperkalemia and hypoglycemia and urinary tract infections Patient was giving IV fluid IV antibiotics corrected the potassiums and admitting in the hospital for further evaluations When I saw the patient on the floor back to the baseline's alert awake oriented and patients have underlying dementia but act pretty normally as she comes in the office all the times Patient's denied any chest pain no short of breath no abdominal pain no back pain Patient's blood sugar is getting better currently running 150+ Hospital Course Hospital Course: This is a 84-year-old female's presenting the emergency department with altered mental status patient is diagnosed with the E. coli urinary tract infections was treated with the IV antibiotic and switch to the p.o. Keflex which is sensitivities could Patient also hypoglycemic in the renal failure which all resolved and patient is currently hold the insulin Patient is otherwise doing well back to the normal walking now with the physical therapy no issues no fever no chills all blood work is stable is Discussed with the patient's daughters regarding the patient's current conditions given instructions to do not use the insulin right now continues the p.o. medications for the diabetes following a 1 week and we reevaluate the patient's blood sugar She is discharged with the Keflex p.o. Patient's 1 blood culture is positive which is sensitive to the Keflex but I think this most likely contaminated other blood culture is all negatives Physical Exam Vital Signs: Temp Pulse Resp BP Pulse Ox 98.0 F 58 L 16 150/65 H 99 07/21/19 07:26 07/21/19 07:26 07/21/19 07:26 07/21/19 07:26 07/21/19 07:26 Intake & Output 07/20/19 07/21/19 07/22/19 06:59 06:59 06:59 Intake Total 2157 3237 Output Total 1 Balance 2157 3236 Weight 61 kg 60.7 kg General appearance: PRESENT: no acute distress, well-developed, well-nourished Head exam: PRESENT: atraumatic, normocephalic Eye exam: PRESENT: conjunctiva pink, EOMI, PERRLA. ABSENT: scleral icterus Ear exam: PRESENT: normal external ear exam Mouth exam: PRESENT: moist, tongue midline Neck exam: ABSENT: carotid bruit, JVD, lymphadenopathy, thyromegaly Respiratory exam: PRESENT: clear to auscultation cheli. ABSENT: rales, rhonchi, wheezes Cardiovascular exam: PRESENT: RRR. ABSENT: diastolic murmur, rubs, systolic murmur Pulses: PRESENT: normal dorsalis pedis pul Vascular exam: PRESENT: normal capillary refill GI/Abdominal exam: PRESENT: normal bowel sounds, soft. ABSENT: distended, guarding, mass, organolmegaly, rebound, tenderness Rectal exam: PRESENT: deferred Extremities exam: PRESENT: full ROM. ABSENT: calf tenderness, clubbing, pedal edema Neurological exam: PRESENT: alert, awake, oriented to person, oriented to place, oriented to time, oriented to situation, CN II-XII grossly intact. ABSENT: motor sensory deficit Psychiatric exam: PRESENT: appropriate affect, normal mood. ABSENT: homicidal ideation, suicidal ideation Skin exam: PRESENT: dry, intact, warm. ABSENT: cyanosis, rash Results Laboratory Results: WBC 5.9 10^3/uL (4.0-10.5) 07/20/19 04:06 RBC 3.42 10^6/uL (3.72-5.28) L 07/20/19 04:06 Hgb 11.5 g/dL (12.0-15.5) L 07/20/19 04:06 Hct 33.7 % (36.0-47.0) L 07/20/19 04:06 MCV 99 fl (80-97) H 07/20/19 04:06 MCH 33.5 pg (27.0-33.4) H 07/20/19 04:06 MCHC 33.9 g/dL (32.0-36.0) 07/20/19 04:06 RDW 13.1 % (11.5-14.0) 07/20/19 04:06 Plt Count 115 10^3/uL (150-450) L 07/20/19 04:06 Lymph % (Auto) 21.9 % (13-45) 07/20/19 04:06 [place] % (Auto) 8.8 % (3-13) 07/20/19 04:06 Eos % (Auto) 4.6 % (0-6) 07/20/19 04:06 Baso % (Auto) 0.4 % (0-2) 07/20/19 04:06 Absolute Neuts (auto) 3.8 10^3/uL (1.7-8.2) 07/20/19 04:06 Absolute Lymphs (auto) 1.3 10^3/uL (0.5-4.7) 07/20/19 04:06 Absolute Monos (auto) 0.5 10^3/uL (0.1-1.4) 07/20/19 04:06 Absolute Eos (auto) 0.3 10^3/uL (0.0-0.6) 07/20/19 04:06 Absolute Basos (auto) 0.0 10^3/uL (0.0-0.2) 07/20/19 04:06 Seg Neutrophils % 64.3 % (42-78) 07/20/19 04:06 Sodium 135.5 mmol/L (137-145) L 07/21/19 03:49 Potassium 5.0 mmol/L (3.6-5.0) 07/21/19 03:49 Chloride 104 mmol/L (98-107) 07/21/19 03:49 Carbon Dioxide 23 mmol/L (22-30) 07/21/19 03:49 Anion Gap 9 (5-19) 07/21/19 03:49 BUN 25 mg/dL (7-20) H 07/21/19 03:49 Creatinine 1.28 mg/dL (0.52-1.25) H 07/21/19 03:49 Est GFR ( Amer) 48 (>60) L 07/21/19 03:49 Est GFR (MDRD) Non-Af 40 (>60) L 07/21/19 03:49 Glucose 132 mg/dL (75-110) H 07/21/19 03:49 POC Glucose 148 mg/dL (70-110) H 07/21/19 11:15 Hemoglobin A1c % 5.6 % (4.7-6.0) 07/17/19 16:12 Calcium 8.7 mg/dL (8.4-10.2) 07/21/19 03:49 Total Bilirubin 0.6 mg/dL (0.2-1.3) 07/17/19 11:40 Direct Bilirubin 0.4 mg/dL (0.0-0.4) 07/17/19 11:40 Neonat Total Bilirubin Not Reportable 07/17/19 11:40 Neonat Direct Bilirubin Not Reportable 07/17/19 11:40 Neonat Indirect Bili Not Reportable 07/17/19 11:40 AST 41 U/L (14-36) H 07/17/19 11:40 ALT 18 U/L (<35) 07/17/19 11:40 Alkaline Phosphatase 92 U/L (38-126) 07/17/19 11:40 Troponin I < 0.012 ng/mL 07/17/19 11:40 Total Protein 8.0 g/dL (6.3-8.2) 07/17/19 11:40 Albumin 4.7 g/dL (3.5-5.0) 07/17/19 11:40 Urine Color CHAVEZ 07/17/19 13:30 Urine Appearance TURBID 07/17/19 13:30 Urine pH 6.0 (5.0-9.0) 07/17/19 13:30 Ur Specific [place] 1.010 07/17/19 13:30 Urine Protein 100 mg/dL (NEGATIVE) H 07/17/19 13:30 Urine Glucose (UA) NEGATIVE mg/dL (NEGATIVE) 07/17/19 13:30 Urine Ketones NEGATIVE mg/dL (NEGATIVE) 07/17/19 13:30 Urine Blood SMALL (NEGATIVE) H 07/17/19 13:30 Urine Nitrite NEGATIVE (NEGATIVE) 07/17/19 13:30 Urine Bilirubin NEGATIVE (NEGATIVE) 07/17/19 13:30 Urine Urobilinogen NEGATIVE mg/dL (<2.0) 07/17/19 13:30 Ur Leukocyte Esterase LARGE (NEGATIVE) H 07/17/19 13:30 Urine WBC (Auto) 102 /HPF 07/17/19 13:30 Urine RBC (Auto) 74 /HPF 07/17/19 13:30 Urine Bacteria (Auto) 3+ /HPF 07/17/19 13:30 Urine WBC Clumps MANY /HPF 07/17/19 13:30 Squamous Epi Cells Auto 55 /HPF 07/17/19 13:30 U Non-Squamous Epis Auto 12 /HPF 07/17/19 13:30 Urine Mucus (Auto) FEW /LPF 07/17/19 13:30 Urine Ascorbic Acid 40 (NEGATIVE) H 07/17/19 13:30 07/17/19 11:40 Troponin I < 0.012 Impressions: Chest X-Ray 07/17/19 11:50 IMPRESSION: NO ACUTE RADIOGRAPHIC FINDING IN THE CHEST. Plan Time Spent: Greater than 30 Minutes - Follow in office 1 week repeat the CBC and Chem-7 reevaluate the patient's blood sugar will arrange the home health and physical therapy Stroke Is this a Stroke Patient?: No Acute Heart Failure - Is this a Heart Failure Patient?: No
[2019-07-21 17:46] VITALS: BP 146/54
== END 2019-07-21 18:39 | disposition home health service (06) | DRG 683 ==
LOC: EEVIPCON 11:37 → ER 11:37 → EH 17:05 → 4N 22:36
PROVIDERS: ADMIT Family Medicine; ATTEND Family Medicine
DX: N17.9 Acute kidney failure, unspecified (principal); N39.0 Urinary tract infection, site not specified; E11.649 Type 2 diabetes mellitus with hypoglycemia without coma; E87.5 Hyperkalemia; B96.20 Unspecified Escherichia coli [E. coli] as the cause of diseases classified elsewhere; K21.9 Gastro-esophageal reflux disease without esophagitis; F41.1 Generalized anxiety disorder; E78.5 Hyperlipidemia, unspecified; F03.90 Unspecified dementia, unspecified severity, without behavioral disturbance, psychotic disturbance, mood disturbance, and anxiety; Z87.440 Personal history of urinary (tract) infections; Z79.4 Long term (current) use of insulin; Z88.8 Allergy status to other drugs, medicaments and biological substances; Z91.018 Allergy to other foods; Z86.73 Personal history of transient ischemic attack (TIA), and cerebral infarction without residual deficits
CPT/HCPCS: 36415; 71045; 80048; 80053; 81001; 82962; 83036; 84484; 85025; 87040; 87077; 87086; 87088; 87150; 87186; 93005; 93010; 96361; 96374; 99285; J0692; J0696; J1644; J1815; J3490; J7030

== ENCOUNTER → 2020-02-01 | Outpatient (CLI) | payer MEDICARE, OTHER ==
--- NOTE | 2020-02-01 12:20 | RADIOLOGY REPORT (SQ) ---
EXAM DESCRIPTION: FOREARM RIGHT IMAGES COMPLETED DATE/TIME: 02/01/2020 10:23 am REASON FOR STUDY: UNSPECIFIED INJURY OF RIGHT FOREARM, INITIAL ENCOUNTER M79.601 PAIN IN RIGHT ARM S59.911A UNSPECIFIED INJURY OF RIGHT FOREARM, INITIAL ENCOUN COMPARISON: None. NUMBER OF VIEWS: Two views. TECHNIQUE: Two radiographic images acquired of the right forearm, including elbow and wrist in at le ast one projection. LIMITATIONS: None. FINDINGS: MINERALIZATION: Normal. BONES: No acute fracture. No worrisome bone lesions. SOFT TISSUES: No obvious swelling or foreign body. OTHER: No other significant finding. IMPRESSION: NEGATIVE STUDY OF THE RIGHT FOREARM. NO RADIOGRAPHIC EVIDENCE OF ACUTE INJURY. TECHNICAL DOCUMENTATION: JOB ID: [id number] 2010 [employer]- All Rights Reserved Reading location - IP/workstation name: [email or web address]
== END ==
LOC: OD 09:54
PROVIDERS: ATTEND Physician Assistant
DX: M79.601 Pain in right arm (principal); S59.911A Unspecified injury of right forearm, initial encounter; X58.XXXA Exposure to other specified factors, initial encounter; Y93.9 Activity, unspecified; Y92.9 Unspecified place or not applicable

== ENCOUNTER → 2020-03-19 | Outpatient (CLI) | payer MEDICARE, OTHER ==
--- NOTE | 2020-03-19 13:03 | RADIOLOGY REPORT (SQ) ---
EXAM DESCRIPTION: CT HEAD WITHOUT IMAGES COMPLETED DATE/TIME: 03/19/2020 12:42 pm REASON FOR STUDY: S09.90XA UNSPECIFIED INJURY OF HEAD, INITIAL ENCOUNTER S09.90XA UNSPECIFIED INJUR Y OF HEAD, INITIAL ENCOUNTER COMPARISON: 09/25/2014 TECHNIQUE: Axial images acquired through the brain without intravenous contrast. Images reviewed wi th bone, brain and subdural windows. Additional sagittal and coronal reconstructions were generated. Images stored on PACS. All CT scanners at this facility use dose modulation, iterative reconstruction, and/or weight based d osing when appropriate to reduce radiation dose to as low as reasonably achievable (ALARA). [facility]: Dose Right [facility]: CareDose [facility]: Dose Right [facility]: Teradose 4D [facility]: XMLAW RADIATION DOSE: CT Rad equipment meets quality standard of care and radiation dose reduction techniq ues were employed. CTDIvol: 48.6 mGy. DLP: 855 mGy-cm.mGy. LIMITATIONS: None. FINDINGS: VENTRICLES: Prominent. CEREBRUM: No masses. No hemorrhage. No midline shift. Areas of low density in the white matter mos t likely due to chronic micro-vascular ischemic change. No evidence for acute infarction. CEREBELLUM: No masses. No hemorrhage. No alteration of density. No evidence for acute infarction. EXTRAAXIAL SPACES: Age-related involutional change. No fluid collections. No masses. ORBITS AND GLOBE: No intra- or extraconal masses. Normal contour of globe without masses. CALVARIUM: No fracture. PARANASAL SINUSES: No fluid or mucosal thickening. SOFT TISSUES: No mass or hematoma. OTHER: No other significant finding. IMPRESSION: CHRONIC CHANGES OF ATROPHY AND MICROVASCULAR ISCHEMIA. NO ACUTE PROCESS. EVIDENCE OF ACUTE STROKE: NO. TECHNICAL DOCUMENTATION: JOB ID: [id number] Quality ID # [id number]: Final reports with documentation of one or more dose reduction techniques (e.g., Au tomated exposure control, adjustment of the mA and/or kV according to patient size, use of iterative reconstruction technique) 2010 [employer]- All Rights Reserved Reading location - IP/workstation name: [email or web address]
--- NOTE | 2020-03-19 13:13 | RADIOLOGY REPORT (SQ) ---
EXAM DESCRIPTION: KNEE LEFT 4 VIEW IMAGES COMPLETED DATE/TIME: 03/19/2020 1:03 pm REASON FOR STUDY: (M25.562)PAIN IN LEFT KNEE S09.90XA UNSPECIFIED INJURY OF HEAD, INITIAL ENCOUNTER M25.562 PAIN IN LEFT KNEE COMPARISON: None. NUMBER OF VIEWS: Four views. TECHNIQUE: AP, lateral, and both oblique radiographic images acquired of the left knee. LIMITATIONS: None. FINDINGS: MINERALIZATION: Normal. BONES: No acute fracture or dislocation. No worrisome bone lesions. No significant osteophytes. JOINT: Joint space narrowing in all compartments with chondrocalcinosis in the medial and lateral com partments. No effusion. OTHER: No other significant finding. IMPRESSION: Osteoarthritic changes with joint space narrowing in all compartments. Chondrocalcinosi s in the medial and lateral compartments. TECHNICAL DOCUMENTATION: JOB ID: [id number] 2010 [employer]- All Rights Reserved Reading location - IP/workstation name: [email or web address]
== END ==
LOC: RAD 12:08
PROVIDERS: ATTEND Physician Assistant
DX: S09.90XA Unspecified injury of head, initial encounter (principal); X58.XXXA Exposure to other specified factors, initial encounter; M17.12 Unilateral primary osteoarthritis, left knee; M25.562 Pain in left knee
CPT/HCPCS: 70450

== ENCOUNTER 2020-04-11 22:40 | Inpatient (IN) | payer MEDICARE, OTHER ==
[2020-04-11 23:26] LABS: ABSOLUTE BASOPHILS # (AUTO) 0.1 10^3/uL (0.0-0.2); ABSOLUTE EOSINOPHILS # (AUTO) 0.4 10^3/uL (0.0-0.6); ABSOLUTE LYMPHOCYTES (AUTO) 1.7 10^3/uL (0.5-4.7); ABSOLUTE NEUT (AUTO) 5.6 10^3/uL (1.7-8.2); BASOPHILS % (AUTO) 0.8 % (0-2); EOSINOPHILS % (AUTO) 4.6 % (0-6); HEMATOCRIT 29.4 % (36.0-47.0); HEMOGLOBIN 10.4 g/dL (12.0-15.5); LYMPHOCYTES % (AUTO) 19.6 % (13-45); MEAN CORPUSCULAR HEMOGLOBIN 34.3 pg (27.0-33.4); MEAN CORPUSCULAR HGB CONC 35.4 g/dL (32.0-36.0); MEAN CORPUSCULAR VOLUME 97 fl (80-97); MONOCYTES % (AUTO) 11.1 % (3-13); PLATELET COUNT 151 10^3/uL (150-450); RED BLOOD COUNT 3.03 10^6/uL (3.72-5.28); RED CELL DISTRIBUTION WIDTH 13.2 % (11.5-14.0); SEGMENTED NEUTROPHILS % (AUTO) 63.9 % (42-78); TOTAL CELLS COUNTED % (AUTO) 100 %; WHITE BLOOD COUNT 8.8 10^3/uL (4.0-10.5)
[2020-04-11 23:35] LABS: ALKALINE PHOSPHATASE 101 U/L (38-126); ANION GAP 9 (5-19); ASPARTATE AMINO TRANSFERASE 34 U/L (14-36); BILIRUBIN,DIRECT 0.1 mg/dL (0.0-0.4); BILIRUBIN,TOTAL 0.5 mg/dL (0.2-1.3); BLOOD UREA NITROGEN 44 mg/dL (7-20); CALCIUM 9.1 mg/dL (8.4-10.2); CARBON DIOXIDE 23 mmol/L (22-30); CHLORIDE 90 mmol/L (98-107); GLUCOSE 203 mg/dL (75-110); POTASSIUM 4.3 mmol/L (3.6-5.0); TOTAL PROTEIN 6.7 g/dL (6.3-8.2)
--- NOTE | 2020-04-12 00:37 | ER Document Report ---
ED Dizziness/Weakness - General Chief Complaint: Weakness Stated Complaint: GENERAL WEAKNESS Time Seen by Provider: 04/12/20 00:33 Mode of Arrival: Ambulatory Information source: Patient, Relative - Daughter Notes: 84-year-old female arrives by EMS after 911 was called when she colla psed on some stairways. Patient's daughter was present at the time. The patient had been holding her grandbabies and then when she attempted to stand she became very wobbly legged and very drunk acting. Her daughter reports she been drinking a liter or more of water per day to help keep her kidneys flushed. Patient otherwise is doing well and has no deficits. She is awake and alert moving all extremities with strength that are 5 out of 5. Patient denies any sore throat Covid symptoms rhinorrhea cough or cold skin lesions nuchal rigidity headache TRAVEL OUTSIDE OF THE [place] IN LAST 30 DAYS: No - HPI Patient complains to provider of: Weakness Onset: This evening Onset/Duration: Sudden Quality of pain: No pain Pain Level: Denies Context: Vertigo Associated symptoms: Almost fainted, Lightheaded, Loss of strength Baseline gait: Walks w/o assistance - Related Data Allergies/Adverse Reactions: hydroxyzine HCl [From Vistaril] Allergy (Severe, Verified 10/01/18 15:48) swelling strawberry Allergy (Intermediate, Verified 10/01/18 15:48) Urticaria lactose Adverse Reaction (Unknown, Verified 07/19/19 13:11) Past Medical History - General Information source: Patient, Relative - Social History Smoking Status: Never Smoker Cigarette use (# per day): No Chew tobacco use (# tins/day): No Smoking Education Provided: No Frequency of alcohol use: None Drug Abuse: None Lives with: Family Family History: Reviewed & Not Pertinent Patient has suicidal ideation: No Patient has homicidal ideation: No - Past Medical History Cardiac Medical History: Reports: Hx Hypercholesterolemia, Hx Hypertension Denies: Hx Atrial Fibrillation, Hx Congestive Heart Failure, Hx Coronary Artery Disease, Hx Heart Attack, Hx Peripheral Vascular Disease, Hx Heart Murmur Pulmonary Medical History: Reports: Hx Pneumonia - hx, Hx Sleep Apnea - USES MACHINE AT HOME "SOMETIMES" Denies: Hx Asthma, Hx Bronchitis, Hx COPD, Hx Tuberculosis Neurological Medical History: Denies: Hx Cerebrovascular Accident, Hx Seizures, Hx Parkinson's Disease Endocrine Medical History: Reports: Hx Diabetes Mellitus Type 2. Denies: Hx Graves' Disease, Hx Hyperthyroidism, Hx Hypothyroidism Renal/ Medical History: Denies: Hx Peritoneal Dialysis Malignancy Medical History: Denies: Hx Leukemia GI Medical History: Reports: Hx Gastroesophageal Reflux Disease Musculoskeletal Medical History: Reports Hx Arthritis, Denies Hx Fibromyalgia, Denies Hx Multiple Sclerosis, Denies Hx Muscular Dystrophy, Denies Hx Systemic Lupus Erythematosus Psychiatric Medical History: Reports: Hx Dementia, Hx Depression Denies: Hx Bipolar Disorder, Hx Post Traumatic Stress Disorder, Hx Schizo phrenia Traumatic Medical History: Denies: Hx Fractures Infectious Medical History: Denies: Hx HIV Past Surgical History: Reports: Hx Cholecystectomy, Hx Hysterectomy. Denies: Hx Pacemaker - Immunizations Hx Diphtheria, Pertussis, Tetanus Vaccination: Yes Hx Pneumococcal Vaccination: 02/22/10 Review of Systems - Review of Systems Constitutional: See HPI, Weakness EENT: No symptoms reported Cardiovascular: No symptoms reported Respiratory: No symptoms reported Gastrointestinal: No symptoms reported Genitourinary: No symptoms reported Female Genitourinary: No symptoms reported Musculoskeletal: No symptoms reported Skin: No symptoms reported Hematologic/Lymphatic: No symptoms reported Neurological/Psychological: See HPI, Weakness -: Yes All other systems reviewed and negative Physical Exam - Vital signs Vitals: Pulse Ox 100 04/11/20 22:42 Interpretation: Normal - General General appearance: Appears well, Alert - HEENT Head: Normocephalic, Atraumatic Eyes: Normal Pupils: PERRL - Respiratory Respiratory status: No respiratory distress Chest status: Nontender Breath sounds: Normal Chest palpation: Normal - Cardiovascular Rhythm: Regular Heart sounds: Normal auscultation Murmur: No - Abdominal Inspection: Normal Distension: No distension Bowel sounds: Normal Tenderness: Nontender Organomegaly: No organomegaly - Rectal Hemorrhoids: Other - deferred - Genitourinary [place] exam: Other - deferred - Back Back: Normal, Nontender - Extremities General upper extremity: Normal inspection, Nontender, Normal color, Normal ROM, Normal temperature General lower extremity: Normal inspection, Nontender, Normal color, Normal ROM, Normal temperature, Normal weight bearing. No: Karen's sign - Neurological Neuro grossly intact: Yes Cognition: Normal Orientation: AAOx4 [place] Coma Scale Eye Opening: Spontaneous [place] Coma Scale Verbal: Oriented [place] Coma Scale Motor: Obeys Commands [place] Coma Scale Total: 15 Speech: Normal Motor strength normal: LUE, RUE, LLE, RLE Sensory: Normal - Psychological Associated symptoms: Normal affect, Normal mood - Skin Skin Temperature: Warm Skin Moisture: Dry Skin Color: Normal Course - Vital Signs Vital signs: Temp Pulse Resp BP Pulse Ox 61 19 127/108 H 100 04/11/20 22:59 04/12/20 01:08 04/12/20 01:08 04/12/20 00:01 - Laboratory Result Diagrams: 04/11/20 23:13 04/11/20 23:13 Laboratory results interpreted by me: 04/11/20 04/11/20 04/12/20 23:13 23:13 00:56 RBC 3.03 L Hgb 10.4 L Hct 29.4 L MCH 34.3 H Sodium 122.1 L Chloride 90 L BUN 44 H Creatinine 1.33 H Est GFR ( Amer) 46 L Est GFR (MDRD) Non-Af 38 L Glucose 203 H Urine Ascorbic Acid 20 H - EKG Interpretation by Me EKG shows normal: Sinus rhythm Rate: Normal Rhythm: NSR - 82 bpm with fine tremors noted. No ST elevation and no ST depression and no T wave elevation no T wave depression. Critical Care Note - Critical Care Note Comments: I discussed this case with Dr. Sinclair at 00 50 and he advises admission Discharge - Discharge Clinical Impression: Hyponatremia, Weakness Condition: Stable Disposition: ADMITTED INPATIENT Unit Admitted: Medical Floor
[2020-04-12] MEDS ORDERED: NORMAL SALINE 1000 ML 1,000 ML IV ONE (00:38)
[2020-04-12 01:14] LABS: APPEARANCE,URINE CLEAR; BILIRUBIN,URINE NEGATIVE (NEGATIVE); COLOR,URINE STRAW; GLUCOSE, URINE NEGATIVE (NEGATIVE); KETONES,URINE NEGATIVE (NEGATIVE); LEUKOCYTE ESTERASE,URINE NEGATIVE (NEGATIVE); NITRITE,URINE NEGATIVE (NEGATIVE); PROTEIN,URINE NEGATIVE (NEGATIVE); UROBILINOGEN,URINE NEGATIVE mg/dL (<2.0)
[2020-04-12] MEDS ORDERED: ACETAMINOPHEN 325 MG TABLET PO PRN (01:29)
[2020-04-12] MEDS ORDERED: DEXTROSE 40% GEL 15 GM TUBE PO PRN ×2 (01:32)
[2020-04-12] MEDS ORDERED: GLUCAGON,HUMAN RECOMB 1 MG INJ IM PRN (01:32)
[2020-04-12] MEDS ORDERED: DEXTROSE 50%-WATER 25 GM/50 ML DISP.SYRIN IV PRN ×2 (01:32)
[2020-04-12 03:20] LABS: ANION GAP 11 (5-19); BLOOD UREA NITROGEN 38 mg/dL (7-20); CALCIUM 8.5 mg/dL (8.4-10.2); CARBON DIOXIDE 22 mmol/L (22-30); CHLORIDE 91 mmol/L (98-107); GLUCOSE 227 mg/dL (75-110)
[2020-04-12 03:35] LABS: POTASSIUM 3.2 mmol/L (3.6-5.0)
--- NOTE | 2020-04-12 08:34 | EKG REPORT ---
SEVERITY:- NORMAL ECG - SINUS RHYTHM : Confirmed by: Alivia Park MD 12-Apr-2020 08:33:18
[2020-04-12] MEDS: INSULIN LISPRO 100 UNIT/ML 3 ML VIAL SUBCUT SCH ×3 (08:40→17:37)
--- NOTE | 2020-04-12 10:04 | PDOC H&P ---
History of Present Illness Admission Date/PCP: 04/12/20 01:35 JOSE ENRIQUE LOVELACE MD Patient complains of: Generalized weakness and collapse History of Present Illness: VEGA MARIO is a 84 year old female Is a 84-year-old female with a significant history of the dementia is with the behavior problems with a history of the type 2 diabetes with a chronic kidney disease hypertensions hyperlipidemia coronary disease recurrent urinary tract infections brought to the emergency departments by EMS because of the patient's was wobbly and collapse and the patient in emergency departments basically a normal but only thing is abnormal as the patient's sodium is 122 Patient recently have a E. coli urinary tract infections and the patient's was drinking more water according to the daughter also patient was started on a resparidone 0.25 mg due to the behavior problems Patient at this point given normal saline is patient's current sodium is 124 range Patient's denied any chest pain no short of breath patient's very pleasant dementia is smiling At this point will admit the patient's for further evaluations Past Medical History Cardiac Medical History: Reports: Hyperlipidema, Hypertension Denies: Atrial Fibrillation, Congestive Heart Failure, Coronary Artery Disease, Myocardial Infarction, Peripheral Vascular Disease, Heart Murmur Pulmonary Medical History: Reports: Pneumonia - hx, Sleep Apnea - USES MACHINE AT HOME "SOMETIMES" Denies: Asthma, Bronchitis, Chronic Obstructive Pulmonary Disease (COPD), Tuberculosis Neurological Medical History: Denies: Seizures Endocrine Medical History: Reports: Diabetes Mellitus Type 2 Denies: Hyperthyroidism, Hypothyroidism Renal/ Medical History: Reports: Chronic Kidney Disease Malignancy Medical History: Denies: Leukemia GI Medical History: Reports: Gastroesophageal Reflux Disease Musculoskeltal Medical History: Reports: Arthritis Denies: Fibromyalgia Psychiatric Medical History: Reports: Dementia, Depression, General Anxiety Disorder Denies: Bipolar Disorder, Post Traumatic Stress Disorder Hematology: Reports: Anemia Denies: Hemophilia, Sickle Cell Disease Infectious Medical History: Denies: HIV Past Surgical History Past Surgical History: Reports: Cholecystectomy, Hysterectomy Denies: Amputation, Pacemaker Social History Information Source: Relative Lives with: Family Smoking Status: Never Smoker Electronic Cigarette use?: No Frequency of Alcohol Use: None Hx Recreational Drug Use: No Drugs: None Hx Prescription Drug Abuse: No Family History Family History: Reviewed & Not Pertinent Parental Family History Reviewed: Yes Children Family History Reviewed: Yes Sibling(s) Family History Reviewed.: Yes Medication/Allergy Home Medications: Acetaminophen [Tylenol Arthritis] 650 mg PO DAILYP PRN 07/18/19 Amlodipine Besylate [Norvasc 2.5 mg Tablet] 2.5 mg PO DAILY 07/18/19 Ascorbic Acid [Vitamin C 500 mg Tablet] 500 mg PO DAILY 07/18/19 Atorvastatin Calcium [Lipitor 10 mg Tablet] 10 mg PO QHS 07/18/19 Buspirone HCl 5 mg PO TID 07/18/19 Cholecalciferol (Vitamin D3) [Vitamin D3 1000 Unit Tablet] 1,000 unit PO DAILY 07/18/19 Clopidogrel Bisulfate [Plavix 75 mg Tablet] 75 mg PO DAILY 07/18/19 Donepezil HCl [Donepezil HCl Odt] 10 mg PO QHS 07/18/19 Escitalopram Oxalate [Lexapro 10 mg Tablet] 20 mg PO DAILY 07/18/19 Ferrous Sulfate [Feosol 325 mg Tablet] 325 mg PO DAILY 07/18/19 Fexofenadine HCl [Aller-Ease] 180 mg PO DAILY 07/18/19 Fluticasone Propionate [Flonase Nasal [place] 50 Mcg/[place] 16 gm] 1 spray NASL DAILY 07/18/19 Hydrochlorothiazide [Hydrodiuril 25 mg Tablet] 12.5 mg PO DAILY 07/18/19 Levothyroxine Sodium [Synthroid 0.025 mg Tablet] 25 mcg PO DAILY 07/18/19 Memantine HCl [Namenda] 5 mg PO Q12 07/18/19 Metoprolol Succinate [Toprol Xl 50 mg Tab.sr] 50 mg PO DAILY 07/18/19 Multivit with Calcium,Iron,Min [Multiple Vitamins For Women] 1 each PO DAILY 07/18/19 Nateglinide [Starlix] 60 mg PO Q12 07/18/19 Pantoprazole Sodium [Protonix [address] Tablet] 20 mg PO QAM 07/18/19 Saccharomyces Boulardii [Florastor] 250 mg PO DAILY 07/18/19 Simethicone [Gas Relief] 125 mg PO DAILY 07/18/19 Valsartan [Diovan 80 mg Tablet] 80 mg PO DAILY 07/18/19 Cephalexin Monohydrate [Keflex 500 mg Capsule] 500 mg PO BID #14 capsule 07/21/19 Allergies/Adverse Reactions: hydroxyzine HCl [From Vistaril] Allergy (Severe, Verified 04/12/20 09:09) swelling strawberry Allergy (Intermediate, Verified 04/12/20 09:09) Urticaria lactose Adverse Reaction (Unknown, Verified 04/12/20 09:09) Review of Systems Constitutional: PRESENT: weakness. ABSENT: chills, fever(s), headache(s), weight gain, weight loss Eyes: ABSENT: visual disturbances Ears: ABSENT: hearing changes Cardiovascular: ABSENT: chest pain, dyspnea on exertion, edema, orthropnea, palpitations Respiratory: ABSENT: cough, hemoptysis Gastrointestinal: ABSENT: abdominal pain, constipation, diarrhea, hematemesis, hematochezia, nausea, vomiting Genitourinary: ABSENT: dysuria, hematuria Musculoskeletal: ABSENT: joint swelling Integumentary: ABSENT: rash, wounds Neurological: ABSENT: abnormal gait, abnormal speech, confusion, dizziness, focal weakness, syncope Psychiatric: ABSENT: anxiety, depression, homidical ideation, suicidal ideation Endocrine: ABSENT: cold intolerance, heat intolerance, menstrual abnormalities, polydipsia, polyuria Hematologic/Lymphatic: ABSENT: easy bleeding, easy bruising, lymphadenopathy Physical Exam Vital Signs: Temp Pulse Resp BP Pulse Ox 83 25 H 139/69 H 100 04/12/20 08:00 04/12/20 09:01 04/12/20 09:01 04/12/20 08:00 Intake & Output 04/11/20 04/12/20 04/13/20 06:59 06:59 06:59 Intake Total 1000 Balance 1000 Weight 55 kg General appearance: PRESENT: no acute distress, well-developed, well-nourished Head exam: PRESENT: atraumatic, normocephalic Eye exam: PRESENT: conjunctiva pink, EOMI, PERRLA. ABSENT: scleral icterus Ear exam: PRESENT: normal external ear exam Mouth exam: PRESENT: moist, tongue midline Neck exam: PRESENT: full ROM. ABSENT: carotid bruit, JVD, lymphadenopathy, thyromegaly Respiratory exam: PRESENT: clear to auscultation cheli Cardiovascular exam: PRESENT: RRR. ABSENT: diastolic murmur, rubs, systolic murmur Pulses: PRESENT: normal dorsalis pedis pul, +2 pedal pulses bilateral Vascular exam: PRESENT: normal capillary refill GI/Abdominal exam: PRESENT: normal bowel sounds, soft. ABSENT: distended, guarding, mass, organolmegaly, rebound, tenderness Rectal exam: PRESENT: deferred Neurological exam: PRESENT: alert, awake, oriented to person, reflexes normal, CN II-XII grossly intact. ABSENT: motor sensory deficit Psychiatric exam: PRESENT: appropriate affect, normal mood. ABSENT: homicidal ideation, suicidal ideation Skin exam: PRESENT: dry, intact, warm. ABSENT: cyanosis, rash Results Laboratory Results: 04/11/20 23:13 04/12/20 02:48 04/11/20 04/11/20 04/11/20 23:13 23:13 23:13 WBC 8.8 RBC 3.03 L Hgb 10.4 L Hct 29.4 L MCV 97 MCH 34.3 H MCHC 35.4 RDW 13.2 Plt Count 151 Seg Neutrophils % 63.9 Sodium 122.1 L Potassium 4.3 Chloride 90 L Carbon Dioxide 23 Anion Gap 9 BUN 44 H Creatinine 1.33 H Est GFR ( Amer) 46 L Glucose 203 H Serum Osmolality 272 L Calcium 9.1 Magnesium 1.8 Total Bilirubin 0.5 AST 34 Alkaline Phosphatase 101 Total Protein 6.7 Albumin 4.0 Urine Color Urine Appearance Urine pH Ur Specific [place] Urine Protein Urine Glucose (UA) Urine Ketones Urine Blood Urine Nitrite Ur Leukocyte Esterase Urine WBC (Auto) Urine RBC (Auto) Urine Osmolality 04/12/20 04/12/20 04/12/20 00:56 00:56 02:48 WBC RBC Hgb Hct MCV MCH MCHC RDW Plt Count Seg Neutrophils % Sodium 123.8 L Potassium 3.2 L D Chloride 91 L Carbon Dioxide 22 Anion Gap 11 BUN 38 H Creatinine 1.20 Est GFR ( Amer) 52 L Glucose 227 H Serum Osmolality Calcium 8.5 Magnesium Total Bilirubin AST Alkaline Phosphatase Total Protein Albumin Urine Color STRAW Urine Appearance CLEAR Urine pH 6.0 Ur Specific [place] 1.010 Urine Protein NEGATIVE Urine Glucose (UA) NEGATIVE Urine Ketones NEGATIVE Urine Blood NEGATIVE Urine Nitrite NEGATIVE Ur Leukocyte Esterase NEGATIVE Urine WBC (Auto) 1 Urine RBC (Auto) 0 Urine Osmolality 389 Assessment & Plan - Diagnosis (1) Hyponatremia Is this a current diagnosis for this admission?: Yes Plan: Most likely because of the patient's excessive drinking of the water underlying SIADH with recent starting the antipsychotic medications risperidone With fluid restriction 1200 cc continues the normal saline discontinues the risperidone Consult nephrology (2) Weakness Is this a current diagnosis for this admission?: Yes Plan: Due to the above conditions will get the CT of the head to rule out other etiology and a chest x-ray (3) Acute renal failure Qualifiers: Acute renal failure type: unspecified Is this a current diagnosis for this admission?: Yes Plan: Continues IV fluid check a urine culture with the recent urine treat with the E. coli subsequent urine culture was negative (4) Anxiety disorder Qualifiers: Anxiety disorder type: generalized anxiety disorder Qualified Code(s): F41.1 - Generalized anxiety disorder Is this a current diagnosis for this admission?: Yes Plan: Will continues the BuSpar (5) Dementia Qualifiers: Dementia type: unspecified type Dementia behavioral disturbance: with behavioral disturbance Qualified Code(s): F03.91 - Unspecified dementia with behavioral disturbance Is this a current diagnosis for this admission?: Yes Plan: As per patient is worsening the dementia's will discuss with the daughter about the possible placement issues (6) Diabetes mellitus type 2 in nonobese Is this a current diagnosis for this admission?: Yes Plan: Continues a sliding scale (7) GERD (gastroesophageal reflux disease) Qualifiers: Esophagitis presence: without esophagitis Is this a current diagnosis for this admission?: Yes Plan: Currently all stable (8) History of cerebrovascular disease Is this a current diagnosis for this admission?: Yes Plan: Continues the aspirin (9) UTI (urinary tract infection) Qualifiers: Urinary tract infection type: site unspecified Is this a current diagnosis for this admission?: Yes Plan: We will check a urine culture - Time Time Spent: 50 to 70 Minutes Medications reviewed and adjusted accordingly: Yes Anticipated Discharge Disposition: Home with Home Health Anticipated Discharge Timeframe: within 72 hours - Inpatient Certification Based on my medical assessment, after consideration of the patient's comorbidities, presenting symptoms, or acuity I expect that the services needed warrant INPATIENT care.: Yes I certify that my determination is in accordance with my understanding of Medicare's requirements for reasonable and necessary INPATIENT services [42 CFR 412.3e].: Yes Medical Necessity: Significant Comorbidiites Make Outpatient Treatment Too Risky, Need Close Monitoring Due to Risk of Patient Decompensation, Need For IV Fluids Post Hospital Care: D/C Quality Assurance Tester Documentation - Plan Summary Plan Summary: Admit the patient We will discussed with the daughter I believe the patient is a DNR but will reconfirmed with the daughter
--- NOTE | 2020-04-12 10:54 | RADIOLOGY REPORT (SQ) ---
EXAM DESCRIPTION: CT HEAD WITHOUT IMAGES COMPLETED DATE/TIME: 04/12/2020 10:35 am REASON FOR STUDY: Syncopal episode COMPARISON: 03/19/2020 TECHNIQUE: Axial images acquired through the brain without intravenous contrast. Images reviewed wi th bone, brain and subdural windows. Additional sagittal and coronal reconstructions were generated. Images stored on PACS. All CT scanners at this facility use dose modulation, iterative reconstruction, and/or weight based d osing when appropriate to reduce radiation dose to as low as reasonably achievable (ALARA). [facility]: Dose Right [facility]: CareDose [facility]: Dose Right [facility]: Teradose 4D [facility]: [email or web address] RADIATION DOSE: CT Rad equipment meets quality standard of care and radiation dose reduction techniq ues were employed. CTDIvol: 53.2 mGy. DLP: 1097 mGy-cm. mGy. LIMITATIONS: None. FINDINGS: VENTRICLES: Prominent ventricles secondary to involutional atrophy. CEREBRUM: Cortical atrophy. No masses. No hemorrhage. No midline shift. No evidence for acute inf arction. Areas of low density in the white matter most likely chronic small vessel ischemic changes. CEREBELLUM: No masses. No hemorrhage. No alteration of density. No evidence for acute infarction. EXTRAAXIAL SPACES: No fluid collections. No masses. ORBITS AND GLOBE: No intra- or extraconal masses. Normal contour of globe without masses. CALVARIUM: No fracture. PARANASAL SINUSES: No fluid or mucosal thickening. SOFT TISSUES: No mass or hematoma. OTHER: No other significant finding. IMPRESSION: Involutional changes with chronic microvascular ischemia. No acute intracranial imaging findings. EVIDENCE OF ACUTE STROKE: NO. COMMENT: Quality ID # [id number]: Final reports with documentation of one or more dose reduction techniques (e.g., Automated exposure control, adjustment of the mA and/or kV according to patient size, use of iterative reconstruction technique) TECHNICAL DOCUMENTATION: JOB ID: [id number] 2010 [id number]- All Rights Reserved Reading location - IP/workstation name: [email or web address]
[2020-04-12] MEDS: ENOXAPARIN SODIUM INJ 40 MG/0.4 ML DISP.SYRIN SUBCUT SCH (11:42)
--- NOTE | 2020-04-12 12:27 | RADIOLOGY REPORT (SQ) ---
EXAM DESCRIPTION: CHEST SINGLE VIEW IMAGES COMPLETED DATE/TIME: 04/12/2020 10:28 am REASON FOR STUDY: chf COMPARISON: 07/17/2019 EXAM PARAMETERS: NUMBER OF VIEWS: One view. TECHNIQUE: Single frontal radiographic view of the chest acquired. RADIATION DOSE: NA LIMITATIONS: None. FINDINGS: LUNGS AND PLEURA: No opacities, masses or pneumothorax. No pleural effusion. MEDIASTINUM AND HILAR STRUCTURES: No masses. Contour normal. HEART AND VASCULAR STRUCTURES: Heart normal in size. Normal vasculature. BONES: No acute findings. HARDWARE: None in the chest. OTHER: No other significant finding. IMPRESSION: NO ACUTE RADIOGRAPHIC FINDING IN THE CHEST. TECHNICAL DOCUMENTATION: JOB ID: [id number] 2010 [employer]- All Rights Reserved Reading location - IP/workstation name: [email or web address]
[2020-04-12 13:03] LABS: ANION GAP 8 (5-19); BLOOD UREA NITROGEN 27 mg/dL (7-20); CALCIUM 8.9 mg/dL (8.4-10.2); CARBON DIOXIDE 25 mmol/L (22-30); CHLORIDE 94 mmol/L (98-107); GLUCOSE 157 mg/dL (75-110); POTASSIUM 3.8 mmol/L (3.6-5.0)
[2020-04-12] MEDS: NORMAL SALINE 1000 ML 1,000 ML IV PRN (13:22)
[2020-04-12] MEDS ORDERED: (PENDING PHARMACY ID) (Buspirone Hcl [Buspirone Hcl] 5 MG Tablet) PO SCH (14:00)
--- NOTE | 2020-04-12 17:41 | PDOC CONSULTATION ---
Consultation Consult Date: 04/12/20 Provider Consulted: Esther MORALES Consult reason:: Acute hyponatremia History of Present Illness Admission Date/PCP: 04/12/20 01:35 JOSE ENRIQUE LOVELACE MD History of Present Illness: VEGA MARIO is a 84 year old female with a background history of dementia, hypertension, hypothyroidism was admitted with history of not feeling well. She had a recent UTI and has been told by her family to drink more amount of water. She was found to have a low sodium in the low 120s. She has been begun on normal saline with Dr. Lovelace and there seems to be an increment of her sodium on a gentle basis when I see her today. Labs and medications were reviewed. Patient is unable to give meaningful history because of her dementia. Chart review was done and discussions were done with the treating nurse. Past Medical History Cardiac Medical History: Reports: Hyperlipidemia, Hypertension-primary Denies: Atrial Fibrillation, Coronary Artery Disease, Heart Murmur, Myocardial Infarction, Peripheral Vascular Disease Pulmonary Medical History: Reports: Pneumonia - hx, Sleep Apnea - USES MACHINE AT HOME "SOMETIMES" Denies: Asthma, Bronchitis, Chronic Obstructive Pulmonary Disease (COPD), Tuberculosis Neurological Medical History: Denies: Seizures Endocrine Medical History: Reports: Diabetes Mellitus Type 2 Denies: Hyperthyroidism, Hypothyroidism Renal/ Medical History: Denies: Hematuria Malignancy Medical History: Denies: Leukemia GI Medical History: Reports: Gastroesophageal Reflux Disease Musculoskeltal Medical History: Reports: Arthritis, Rheumatoid Arthritis Denies: Fibromyalgia, Systemic Lupus Erythematosus Psychiatric Medical History: Reports: Dementia, Depression, General Anxiety Disorder Denies: Bipolar Disorder, Post Traumatic Stress Disorder Infectious Medical History: Denies: HIV Past Surgical History Past Surgical History: Reports: Cholecystectomy, Hysterectomy Denies: Pacemaker Social History Lives with: Family Smoking Status: Never Smoker Electronic Cigarette use?: No Frequency of Alcohol Use: None Hx Recreational Drug Use: No Drugs: None Hx Prescription Drug Abuse: No Family History Parental Family History Reviewed: Yes - Unable Unable to give any history because of her dementia. Children Family History Reviewed: No Sibling(s) Family History Reviewed.: No Medication/Allergy Home Medications: Atorvastatin Calcium [Lipitor 10 mg Tablet] 10 mg PO QHS 07/18/19 Buspirone HCl 5 mg PO TID 07/18/19 Cholecalciferol (Vitamin D3) [Vitamin D3 1000 Unit Tablet] 1,000 unit PO DAILY 07/18/19 Clopidogrel Bisulfate [Plavix 75 mg Tablet] 75 mg PO DAILY 07/18/19 Donepezil HCl [Donepezil HCl Odt] 10 mg PO QHS 07/18/19 Ferrous Sulfate [Feosol 325 mg Tablet] 325 mg PO DAILY 07/18/19 Fluticasone Propionate [Flonase Nasal [place] 50 Mcg/[place] 16 gm] 1 spray NASL DAILY 07/18/19 Hydrochlorothiazide [Hydrodiuril 25 mg Tablet] 12.5 mg PO DAILY 07/18/19 Levothyroxine Sodium [Synthroid 0.025 mg Tablet] 25 mcg PO DAILY 07/18/19 Memantine HCl [Namenda] 5 mg PO Q12 07/18/19 Metoprolol Succinate [Toprol Xl 50 mg Tab.sr] 50 mg PO DAILY 07/18/19 Multivit with Calcium,Iron,Min [Multiple Vitamins For Women] 1 each PO DAILY 07/18/19 Nateglinide [Starlix] 60 mg PO Q12 07/18/19 Pantoprazole Sodium [Protonix [address] Tablet] 20 mg PO QAM 07/18/19 Divalproex Sodium [Depakote Er 250 Mg Tablet] 750 mg PO QHS 04/12/20 Losartan Potassium [Cozaar 50 mg Tablet] 50 mg PO DAILY 04/12/20 Quetiapine Fumarate [Seroquel] 12.5 mg PO QHS 04/12/20 Risperidone [Risperdal 0.25 Mg Tablet] 0.25 mg PO QHS 04/12/20 Allergies/Adverse Reactions: hydroxyzine HCl [From Vistaril] Allergy (Severe, Verified 04/12/20 09:09) swelling strawberry Allergy (Intermediate, Verified 04/12/20 09:09) Urticaria lactose Adverse Reaction (Unknown, Verified 04/12/20 09:09) Review of Systems ROS unobtainable: Due to mental status Physical Exam Vital Signs: Temp Pulse Resp BP Pulse Ox 98 F 84 15 143/69 H 100 04/12/20 11:50 04/12/20 11:00 04/12/20 15:01 04/12/20 15:01 04/12/20 15:01 Intake & Output 04/11/20 04/12/20 04/13/20 06:59 06:59 06:59 Intake Total 1000 Balance 1000 Weight 55 kg General appearance: PRESENT: no acute distress Respiratory exam: PRESENT: clear to auscultation cheli, decreased breath sounds. ABSENT: crackles Cardiovascular exam: PRESENT: +S1, +S2 GI/Abdominal exam: PRESENT: normal bowel sounds, soft. ABSENT: organomegaly, tenderness Neurological exam: PRESENT: awake Skin exam: PRESENT: dry. ABSENT: erythema, mottled, rash Results Laboratory Results: 04/11/20 23:13 04/12/20 12:32 04/11/20 04/11/20 04/11/20 23:13 23:13 23:13 WBC 8.8 RBC 3.03 L Hgb 10.4 L Hct 29.4 L MCV 97 MCH 34.3 H MCHC 35.4 RDW 13.2 Plt Count 151 Seg Neutrophils % 63.9 Sodium 122.1 L Potassium 4.3 Chloride 90 L Carbon Dioxide 23 Anion Gap 9 BUN 44 H Creatinine 1.33 H Est GFR ( Amer) 46 L Glucose 203 H Serum Osmolality 272 L Calcium 9.1 Magnesium 1.8 Total Bilirubin 0.5 AST 34 Alkaline Phosphatase 101 Total Protein 6.7 Albumin 4.0 Urine Color Urine Appearance Urine pH Ur Specific [place] Urine Protein Urine Glucose (UA) Urine Ketones Urine Blood Urine Nitrite Ur Leukocyte Esterase Urine WBC (Auto) Urine RBC (Auto) Urine Osmolality 04/12/20 04/12/20 04/12/20 00:56 00:56 02:48 WBC RBC Hgb Hct MCV MCH MCHC RDW Plt Count Seg Neutrophils % Sodium 123.8 L Potassium 3.2 L D Chloride 91 L Carbon Dioxide 22 Anion Gap 11 BUN 38 H Creatinine 1.20 Est GFR ( Amer) 52 L Glucose 227 H Serum Osmolality Calcium 8.5 Magnesium Total Bilirubin AST Alkaline Phosphatase Total Protein Albumin Urine Color STRAW Urine Appearance CLEAR Urine pH 6.0 Ur Specific [place] 1.010 Urine Protein NEGATIVE Urine Glucose (UA) NEGATIVE Urine Ketones NEGATIVE Urine Blood NEGATIVE Urine Nitrite NEGATIVE Ur Leukocyte Esterase NEGATIVE Urine WBC (Auto) 1 Urine RBC (Auto) 0 Urine Osmolality 389 04/12/20 12:32 WBC RBC Hgb Hct MCV MCH MCHC RDW Plt Count Seg Neutrophils % Sodium 126.8 L Potassium 3.8 Chloride 94 L Carbon Dioxide 25 Anion Gap 8 BUN 27 H Creatinine 1.01 Est GFR ( Amer) > 60 Glucose 157 H Serum Osmolality Calcium 8.9 Magnesium Total Bilirubin AST Alkaline Phosphatase Total Protein Albumin Urine Color Urine Appearance Urine pH Ur Specific [place] Urine Protein Urine Glucose (UA) Urine Ketones Urine Blood Urine Nitrite Ur Leukocyte Esterase Urine WBC (Auto) Urine RBC (Auto) Urine Osmolality Impressions: Chest X-Ray 04/12/20 00:00 IMPRESSION: NO ACUTE RADIOGRAPHIC FINDING IN THE CHEST. Head CT 04/12/20 00:00 IMPRESSION: Involutional changes with chronic microvascular ischemia. No acute intracranial imaging findings. EVIDENCE OF ACUTE STROKE: NO. Assessment & Plan - Diagnosis (1) Hyponatremia Is this a current diagnosis for this admission?: Yes Plan: Likely secondary to dehydration. Agree with current IV normal saline and gentle increment of sodium. Avoid more than a 6-8 mEq rise of sodium per 24 hours for avoidance of CPM. (2) Acute renal failure Qualifiers: Acute renal failure type: unspecified Is this a current diagnosis for this admission?: Yes Plan: Secondary to dehydration and possible mild ATN from her UTI. Continue current guidelines. (3) Dementia Qualifiers: Dementia type: unspecified type Dementia behavioral disturbance: with behavioral disturbance Qualified Code(s): F03.91 - Unspecified dementia with behavioral disturbance Is this a current diagnosis for this admission?: Yes Plan: Status quo. (4) Hypertension Qualifiers: Hypertension type: essential hypertension Qualified Code(s): I10 - Essential (primary) hypertension Plan: Controlled. (5) UTI (urinary tract infection) Qualifiers: Urinary tract infection type: site unspecified Is this a current diagnosis for this admission?: Yes Plan: E. coli. On antibiotics.
[2020-04-12] MEDS: BUSPIRONE HCL 10 MG TABLET PO SCH (18:07)
[2020-04-12] MEDS: CEFTRIAXONE 1 GM/D5W RTU 1 GM/50 ML RTUPB IV SCH (18:08)
[2020-04-12] MEDS ORDERED: MEMANTINE HCL 10 MG TABLET PO ONE (20:30)
[2020-04-12] MEDS: DONEPEZIL HCL 5 MG TABLET PO SCH (21:28)
[2020-04-12] MEDS: DIVALPROEX SODIUM 250 MG TAB.SR.24H PO SCH (21:28)
[2020-04-12] MEDS: ATORVASTATIN CALCIUM 10 MG TABLET PO SCH (21:28)
[2020-04-12] MEDS: QUETIAPINE FUMARATE 25 MG TABLET PO SCH (21:28)
[2020-04-12] MEDS ORDERED: MEMANTINE HCL 5 MG PO SCH (22:00)
[2020-04-12] MEDS ORDERED: DONEPEZIL HCL 10 MG PO SCH (22:00)
[2020-04-13 07:00] LABS: ABSOLUTE EOSINOPHILS # (AUTO) 0.3 10^3/uL (0.0-0.6); ABSOLUTE LYMPHOCYTES (AUTO) 0.9 10^3/uL (0.5-4.7); ABSOLUTE MONOCYTES (AUTO) 0.5 10^3/uL (0.1-1.4); ABSOLUTE NEUT (AUTO) 4.1 10^3/uL (1.7-8.2); BASOPHILS % (AUTO) 0.4 % (0-2); EOSINOPHILS % (AUTO) 4.4 % (0-6); HEMOGLOBIN 10.2 g/dL (12.0-15.5); LYMPHOCYTES % (AUTO) 15.9 % (13-45); MEAN CORPUSCULAR HEMOGLOBIN 34.3 pg (27.0-33.4); MEAN CORPUSCULAR HGB CONC 35.2 g/dL (32.0-36.0); MEAN CORPUSCULAR VOLUME 98 fl (80-97); MONOCYTES % (AUTO) 8.6 % (3-13); PLATELET COUNT 136 10^3/uL (150-450); RED BLOOD COUNT 2.98 10^6/uL (3.72-5.28); RED CELL DISTRIBUTION WIDTH 13.4 % (11.5-14.0); SEGMENTED NEUTROPHILS % (AUTO) 70.7 % (42-78); TOTAL CELLS COUNTED % (AUTO) 100 %; WHITE BLOOD COUNT 5.8 10^3/uL (4.0-10.5)
[2020-04-13 07:24] LABS: ANION GAP 10 (5-19); BLOOD UREA NITROGEN 23 mg/dL (7-20); CALCIUM 8.8 mg/dL (8.4-10.2); CARBON DIOXIDE 22 mmol/L (22-30); CHLORIDE 97 mmol/L (98-107); GLUCOSE 143 mg/dL (75-110); POTASSIUM 3.9 mmol/L (3.6-5.0)
[2020-04-13] MEDS: INSULIN LISPRO 100 UNIT/ML 3 ML VIAL SUBCUT SCH ×3 (07:40→17:22)
[2020-04-13] MEDS ORDERED: INFLUENZA QUAD (6MOS+) 2020-21 VAC 0.5 ML SYR IM ONE (08:00)
[2020-04-13] MEDS ORDERED: (PENDING PHARMACY ID) (Multivit With Calcium,Iron,Min [Multiple Vitamins For Women] 1 EACH PO SCH (10:00)
[2020-04-13] MEDS: PANTOPRAZOLE SODIUM 20 MG TABLET.DR PO SCH (10:05)
[2020-04-13] MEDS: BUSPIRONE HCL 10 MG TABLET PO SCH ×3 (10:05→17:17)
[2020-04-13] MEDS: MULTIVITAMIN TABLET PO SCH (10:06)
[2020-04-13] MEDS: MEMANTINE HCL 10 MG TABLET PO SCH ×2 (10:06→21:16)
[2020-04-13] MEDS: LOSARTAN POTASSIUM 50 MG TABLET PO SCH (10:07)
[2020-04-13] MEDS: METOPROLOL SUCCINATE 50 MG TAB.SR.24H PO SCH (10:07)
[2020-04-13] MEDS: FERROUS SULFATE 325 MG TABLET PO SCH (10:07)
[2020-04-13] MEDS: CHOLECALCIFEROL (D3) 1,000 UNIT (25 MCG) TABLET PO SCH (10:07)
[2020-04-13] MEDS: CLOPIDOGREL BISULFATE 75 MG TABLET PO SCH (10:07)
[2020-04-13] MEDS: LEVOTHYROXINE SODIUM 0.025 MG TABLET PO SCH (10:08)
[2020-04-13] MEDS: FLUTICASONE NASAL SPRAY 50 MCG/SPRY 120 SPRAY/16 GM NASL SCH (10:09)
[2020-04-13] MEDS: ENOXAPARIN SODIUM INJ 40 MG/0.4 ML DISP.SYRIN SUBCUT SCH (10:10)
[2020-04-13] MEDS: NORMAL SALINE 1000 ML 1,000 ML IV PRN ×2 (10:10→12:20)
[2020-04-13] MEDS: CEFTRIAXONE 1 GM/D5W RTU 1 GM/50 ML RTUPB IV SCH (10:11)
--- NOTE | 2020-04-13 12:53 | PDOC PROGRESS REPORT ---
Subjective Date:: 04/13/20 Subjective:: Patient is currently doing well Patient's denied any chest pain no short of breath Patient sodium is much improving Urine cultures positive for gram-negative organism Reason For Visit: HYPONATREMIA, GENERAL WEAKNESS Physical Exam Vital Signs: Temp Pulse Resp BP Pulse Ox 98.2 F 78 17 150/67 H 97 04/13/20 10:00 04/13/20 07:36 04/13/20 07:36 04/13/20 07:36 04/13/20 07:36 Intake & Output 04/12/20 04/13/20 04/14/20 06:59 06:59 06:59 Intake Total 1000 1340 240 Balance 1000 1340 240 Weight 55 kg 50.2 kg General appearance: PRESENT: no acute distress, well-developed, well-nourished Head exam: PRESENT: atraumatic, normocephalic Eye exam: PRESENT: conjunctiva pink, EOMI, PERRLA. ABSENT: scleral icterus Ear exam: PRESENT: normal external ear exam Mouth exam: PRESENT: moist, tongue midline Neck exam: PRESENT: full ROM. ABSENT: carotid bruit, JVD, lymphadenopathy, thyromegaly Respiratory exam: PRESENT: clear to auscultation cheli Cardiovascular exam: PRESENT: RRR. ABSENT: diastolic murmur, rubs, systolic murmur Vascular exam: PRESENT: normal capillary refill GI/Abdominal exam: PRESENT: normal bowel sounds, soft. ABSENT: distended, guarding, mass, organolmegaly, rebound, tenderness Rectal exam: PRESENT: deferred Musculoskeletal exam: PRESENT: ambulatory Neurological exam: PRESENT: alert, awake, oriented to person, oriented to place, oriented to time, oriented to situation, CN II-XII grossly intact. ABSENT: m otor sensory deficit Psychiatric exam: PRESENT: appropriate affect, normal mood. ABSENT: homicidal ideation, suicidal ideation Skin exam: PRESENT: dry, intact, warm. ABSENT: cyanosis, rash Results Laboratory Results: 04/13/20 06:29 04/13/20 06:29 04/12/20 04/13/20 04/13/20 12:32 06:29 06:29 WBC 5.8 RBC 2.98 L Hgb 10.2 L Hct 29.0 L MCV 98 H MCH 34.3 H MCHC 35.2 RDW 13.4 Plt Count 136 L Seg Neutrophils % 70.7 Sodium 126.8 L 129.4 L Potassium 3.8 3.9 Chloride 94 L 97 L Carbon Dioxide 25 22 Anion Gap 8 10 BUN 27 H 23 H Creatinine 1.01 0.97 Est GFR ( Amer) > 60 > 60 Glucose 157 H 143 H Calcium 8.9 8.8 04/12/20 00:56 Clean Catch Midstream Urine Culture - Final Escherichia Coli Impressions: Chest X-Ray 04/12/20 00:00 IMPRESSION: NO ACUTE RADIOGRAPHIC FINDING IN THE CHEST. Head CT 04/12/20 00:00 IMPRESSION: Involutional changes with chronic microvascular ischemia. No acute intracranial imaging findings. EVIDENCE OF ACUTE STROKE: NO. Assessment & Plan - Diagnosis (1) Hyponatremia Is this a current diagnosis for this admission?: Yes (2) Weakness Is this a current diagnosis for this admission?: Yes (3) Acute renal failure Qualifiers: Acute renal failure type: unspecified Is this a current diagnosis for this admission?: Yes (4) Anxiety disorder Qualifiers: Anxiety disorder type: generalized anxiety disorder Is this a current diagnosis for this admission?: Yes (5) Dementia Qualifiers: Dementia type: unspecified type Dementia behavioral disturbance: with behavioral disturbance Qualified Code(s): F03.91 - Unspecified dementia with behavioral disturbance Is this a current diagnosis for this admission?: Yes (6) Diabetes mellitus type 2 in nonobese Is this a current diagnosis for this admission?: Yes (7) GERD (gastroesophageal reflux disease) Qualifiers: Esophagitis presence: without esophagitis Is this a current diagnosis for this admission?: Yes (8) History of cerebrovascular disease Is this a current diagnosis for this admission?: Yes (9) UTI (urinary tract infection) Qualifiers: Urinary tract infection type: site unspecified Is this a current diagnosis for this admission?: Yes - Time Time Spent with patient: 15-24 minutes Level of Care: IMCU Medications reviewed and adjusted accordingly: Yes Anticipated discharge: SNF Anticipated DC Timeframe: within 48 hours, Other - Plan Summary Plan Summary: Continues the current medications discussed with the daughter we will send the patient's to the rehab facilities on a Thursday
[2020-04-13] MEDS: QUETIAPINE FUMARATE 25 MG TABLET PO SCH (21:13)
[2020-04-13] MEDS: ATORVASTATIN CALCIUM 10 MG TABLET PO SCH (21:14)
[2020-04-13] MEDS: DIVALPROEX SODIUM 250 MG TAB.SR.24H PO SCH (21:15)
[2020-04-13] MEDS: DONEPEZIL HCL 5 MG TABLET PO SCH (21:16)
[2020-04-14 06:14] LABS: ABSOLUTE EOSINOPHILS # (AUTO) 0.3 10^3/uL (0.0-0.6); ABSOLUTE MONOCYTES (AUTO) 0.6 10^3/uL (0.1-1.4); ABSOLUTE NEUT (AUTO) 4.2 10^3/uL (1.7-8.2); BASOPHILS % (AUTO) 0.3 % (0-2); EOSINOPHILS % (AUTO) 5.1 % (0-6); HEMATOCRIT 27.6 % (36.0-47.0); HEMOGLOBIN 9.9 g/dL (12.0-15.5); LYMPHOCYTES % (AUTO) 15.8 % (13-45); MEAN CORPUSCULAR HEMOGLOBIN 34.7 pg (27.0-33.4); MEAN CORPUSCULAR HGB CONC 35.8 g/dL (32.0-36.0); MEAN CORPUSCULAR VOLUME 97 fl (80-97); MONOCYTES % (AUTO) 10.1 % (3-13); PLATELET COUNT 119 10^3/uL (150-450); RED BLOOD COUNT 2.85 10^6/uL (3.72-5.28); RED CELL DISTRIBUTION WIDTH 13.4 % (11.5-14.0); SEGMENTED NEUTROPHILS % (AUTO) 68.7 % (42-78); TOTAL CELLS COUNTED % (AUTO) 100 %; WHITE BLOOD COUNT 6.1 10^3/uL (4.0-10.5)
[2020-04-14 06:31] LABS: ANION GAP 10 (5-19); BLOOD UREA NITROGEN 17 mg/dL (7-20); CALCIUM 8.4 mg/dL (8.4-10.2); CARBON DIOXIDE 21 mmol/L (22-30); CHLORIDE 96 mmol/L (98-107); GLUCOSE 167 mg/dL (75-110); POTASSIUM 3.6 mmol/L (3.6-5.0)
[2020-04-14] MEDS: INSULIN LISPRO 100 UNIT/ML 3 ML VIAL SUBCUT SCH ×3 (08:49→17:41)
[2020-04-14] MEDS: ENOXAPARIN SODIUM INJ 40 MG/0.4 ML DISP.SYRIN SUBCUT SCH (09:44)
[2020-04-14] MEDS: NORMAL SALINE 1000 ML 1,000 ML IV PRN (09:53)
[2020-04-14] MEDS: CEFTRIAXONE 1 GM/D5W RTU 1 GM/50 ML RTUPB IV SCH (09:53)
[2020-04-14] MEDS: CHOLECALCIFEROL (D3) 1,000 UNIT (25 MCG) TABLET PO SCH (09:54)
[2020-04-14] MEDS: FERROUS SULFATE 325 MG TABLET PO SCH (09:54)
[2020-04-14] MEDS: BUSPIRONE HCL 10 MG TABLET PO SCH ×3 (09:54→17:46)
[2020-04-14] MEDS: CLOPIDOGREL BISULFATE 75 MG TABLET PO SCH (09:54)
[2020-04-14] MEDS: MEMANTINE HCL 10 MG TABLET PO SCH ×2 (09:54→21:14)
[2020-04-14] MEDS: METOPROLOL SUCCINATE 50 MG TAB.SR.24H PO SCH (09:54)
[2020-04-14] MEDS: LOSARTAN POTASSIUM 50 MG TABLET PO SCH (09:54)
[2020-04-14] MEDS: LEVOTHYROXINE SODIUM 0.025 MG TABLET PO SCH (09:54)
[2020-04-14] MEDS: PANTOPRAZOLE SODIUM 20 MG TABLET.DR PO SCH (09:54)
[2020-04-14] MEDS: MULTIVITAMIN TABLET PO SCH (09:54)
[2020-04-14] MEDS: FLUTICASONE NASAL SPRAY 50 MCG/SPRY 120 SPRAY/16 GM NASL SCH (09:55)
[2020-04-14] MEDS: QUETIAPINE FUMARATE 25 MG TABLET PO SCH (21:13)
[2020-04-14] MEDS: DIVALPROEX SODIUM 250 MG TAB.SR.24H PO SCH (21:13)
[2020-04-14] MEDS: ATORVASTATIN CALCIUM 10 MG TABLET PO SCH (21:14)
[2020-04-14] MEDS: DONEPEZIL HCL 5 MG TABLET PO SCH (21:14)
--- NOTE | 2020-04-14 21:27 | PDOC PROGRESS REPORT ---
Subjective Date:: 04/14/20 Subjective:: No chest pain or difficulty with breathing. No fever. Remain on IV fluid infusio n. Reason For Visit: HYPONATREMIA, GENERAL WEAKNESS Physical Exam Vital Signs: Temp Pulse Resp BP Pulse Ox 97.7 F 84 19 138/68 H 98 04/14/20 15:55 04/14/20 15:55 04/14/20 15:55 04/14/20 15:55 04/14/20 15:55 Intake & Output 04/13/20 04/14/20 04/15/20 06:59 06:59 06:59 Intake Total 7608 957 8874 Balance 8243 241 3690 Weight 50.2 kg 50.9 kg General appearance: PRESENT: no acute distress Head exam: PRESENT: atraumatic, normocephalic Eye exam: PRESENT: conjunctiva pink. ABSENT: scleral icterus Mouth exam: PRESENT: moist Respiratory exam: PRESENT: clear to auscultation cheli Cardiovascular exam: PRESENT: RRR, +S1, +S2. ABSENT: diastolic murmur, systolic murmur Vascular exam: ABSENT: pallor GI/Abdominal exam: PRESENT: normal bowel sounds, soft. ABSENT: tenderness Extremities exam: ABSENT: pedal edema Neurological exam: PRESENT: alert, awake Skin exam: PRESENT: dry, warm Results Laboratory Results: 04/14/20 05:40 04/14/20 05:40 04/14/20 04/14/20 05:40 05:40 WBC 6.1 RBC 2.85 L Hgb 9.9 L Hct 27.6 L MCV 97 MCH 34.7 H MCHC 35.8 RDW 13.4 Plt Count 119 L Seg Neutrophils % 68.7 Sodium 126.9 L Potassium 3.6 Chloride 96 L Carbon Dioxide 21 L Anion Gap 10 BUN 17 Creatinine 0.86 Est GFR ( Amer) > 60 Glucose 167 H Calcium 8.4 Impressions: Chest X-Ray 04/12/20 00:00 IMPRESSION: NO ACUTE RADIOGRAPHIC FINDING IN THE CHEST. Head CT 04/12/20 00:00 IMPRESSION: Involutional changes with chronic microvascular ischemia. No acute intracranial imaging findings. EVIDENCE OF ACUTE STROKE: NO. Assessment & Plan - Diagnosis (1) Acute renal failure Qualifiers: Acute renal failure type: unspecified Is this a current diagnosis for this admission?: Yes Plan: Continue IV fluid hydration and encourage oral intake. (2) Hyponatremia Is this a current diagnosis for this admission?: Yes Plan: Obtain BMP in AM. Maintain on IV N/S infusion. (3) UTI (urinary tract infection) Qualifiers: Urinary tract infection type: site unspecified Is this a current diagnosis for this admission?: Yes Plan: Continue IV Ceftriaxone coverage. (4) Diabetes mellitus type 2 in nonobese Is this a current diagnosis for this admission?: Yes Plan: Maintain on current medication management. (5) Hypertension Qualifiers: Hypertension type: essential hypertension Qualified Code(s): I10 - Essential (primary) hypertension Is this a current diagnosis for this admission?: Yes Plan: Maintain on current medication management. - Time Time Spent with patient: 25-34 minutes Level of Care: MEDICAL Medications reviewed and adjusted accordingly: Yes Anticipated discharge: SNF Anticipated DC Timeframe: within 72 hours - Inpatient Certification Based on my medical assessment, after consideration of the patient's comorbidities, presenting symptoms, or acuity I expect that the services needed warrant INPATIENT care.: Yes I certify that my determination is in accordance with my understanding of Medicare's requirements for reasonable and necessary INPATIENT services [42 CFR 412.3e].: Yes Medical Necessity: Significant Comorbidiites Make Outpatient Treatment Too Risky, Need Close Monitoring Due to Risk of Patient Decompensation, Need For IV Fluids, Need for IV Antibiotics, Risk of Complication if Not Cared For in Hospital, Risk of Diagnosis Which Will Require Inpatient Eval/Care/Monitoring Post Hospital Care: D/C Charger Documentation, D/C or Transfer Summary - Plan Summary Plan Summary: Maintain on current medication and fluid management.
[2020-04-15] MEDS: NORMAL SALINE 1000 ML 1,000 ML IV PRN (05:51)
[2020-04-15 06:33] LABS: ABSOLUTE EOSINOPHILS # (AUTO) 0.4 10^3/uL (0.0-0.6); ABSOLUTE LYMPHOCYTES (AUTO) 1.5 10^3/uL (0.5-4.7); ABSOLUTE MONOCYTES (AUTO) 0.7 10^3/uL (0.1-1.4); ABSOLUTE NEUT (AUTO) 4.1 10^3/uL (1.7-8.2); BASOPHILS % (AUTO) 0.4 % (0-2); EOSINOPHILS % (AUTO) 6.3 % (0-6); HEMATOCRIT 28.2 % (36.0-47.0); LYMPHOCYTES % (AUTO) 22.1 % (13-45); MEAN CORPUSCULAR HEMOGLOBIN 34.1 pg (27.0-33.4); MEAN CORPUSCULAR HGB CONC 35.5 g/dL (32.0-36.0); MEAN CORPUSCULAR VOLUME 96 fl (80-97); MONOCYTES % (AUTO) 10.1 % (3-13); PLATELET COUNT 132 10^3/uL (150-450); RED BLOOD COUNT 2.93 10^6/uL (3.72-5.28); RED CELL DISTRIBUTION WIDTH 13.3 % (11.5-14.0); SEGMENTED NEUTROPHILS % (AUTO) 61.1 % (42-78); TOTAL CELLS COUNTED % (AUTO) 100 %; WHITE BLOOD COUNT 6.7 10^3/uL (4.0-10.5)
[2020-04-15 07:08] LABS: ANION GAP 8 (5-19); BLOOD UREA NITROGEN 20 mg/dL (7-20); CARBON DIOXIDE 24 mmol/L (22-30); CHLORIDE 99 mmol/L (98-107); GLUCOSE 95 mg/dL (75-110); POTASSIUM 4.1 mmol/L (3.6-5.0)
[2020-04-15] MEDS: INSULIN LISPRO 100 UNIT/ML 3 ML VIAL SUBCUT SCH ×3 (08:45→17:40)
[2020-04-15] MEDS: CEFTRIAXONE 1 GM/D5W RTU 1 GM/50 ML RTUPB IV SCH (10:30)
[2020-04-15] MEDS: LEVOTHYROXINE SODIUM 0.025 MG TABLET PO SCH (10:31)
[2020-04-15] MEDS: BUSPIRONE HCL 10 MG TABLET PO SCH ×3 (10:31→21:25)
[2020-04-15] MEDS: MULTIVITAMIN TABLET PO SCH (10:32)
[2020-04-15] MEDS: FERROUS SULFATE 325 MG TABLET PO SCH (10:32)
[2020-04-15] MEDS: PANTOPRAZOLE SODIUM 20 MG TABLET.DR PO SCH (10:32)
[2020-04-15] MEDS: LOSARTAN POTASSIUM 50 MG TABLET PO SCH (10:32)
[2020-04-15] MEDS: METOPROLOL SUCCINATE 50 MG TAB.SR.24H PO SCH (10:32)
[2020-04-15] MEDS: MEMANTINE HCL 10 MG TABLET PO SCH ×2 (10:32→21:21)
[2020-04-15] MEDS: CHOLECALCIFEROL (D3) 1,000 UNIT (25 MCG) TABLET PO SCH (10:32)
[2020-04-15] MEDS: CLOPIDOGREL BISULFATE 75 MG TABLET PO SCH (10:32)
[2020-04-15] MEDS: ENOXAPARIN SODIUM INJ 40 MG/0.4 ML DISP.SYRIN SUBCUT SCH (11:06)
[2020-04-15] MEDS: FLUTICASONE NASAL SPRAY 50 MCG/SPRY 120 SPRAY/16 GM NASL SCH (12:39)
--- NOTE | 2020-04-15 18:13 | PDOC PROGRESS REPORT ---
Subjective Date:: 04/15/20 Subjective:: No chest pain or difficulty with breathing. No fever or chills. No nausea, vomit ing or abdominal pain. Tolerating oral intake. Reason For Visit: HYPONATREMIA, GENERAL WEAKNESS Physical Exam Vital Signs: Temp Pulse Resp BP Pulse Ox 97.7 F 71 18 156/66 H 100 04/15/20 16:01 04/15/20 17:30 04/15/20 16:01 04/15/20 16:01 04/15/20 16:01 Intake & Output 04/14/20 04/15/20 04/16/20 06:59 06:59 06:59 Intake Total 871 2796 50 Balance 871 2796 50 Weight 50.9 kg 51.2 kg Physical Exam: General appearance: PRESENT: no acute distress Head exam: PRESENT: atraumatic, normocephalic Eye exam: PRESENT: conjunctiva pink. ABSENT: pallor, scleral icterus Mouth exam: PRESENT: moist Respiratory exam: PRESENT: clear to auscultation cheli Cardiovascular exam: PRESENT: RRR, +S1, +S2. ABSENT: diastolic murmur, systolic murmur GI/Abdominal exam: PRESENT: normal bowel sounds, soft. ABSENT: tenderness Extremities exam: ABSENT: pedal edema Neurological exam: PRESENT: alert, awake Skin exam: PRESENT: dry, warm Results Laboratory Results: 04/15/20 05:50 04/15/20 05:50 04/15/20 04/15/20 05:50 05:50 WBC 6.7 RBC 2.93 L Hgb 10.0 L Hct 28.2 L MCV 96 MCH 34.1 H MCHC 35.5 RDW 13.3 Plt Count 132 L Seg Neutrophils % 61.1 Sodium 131.2 L Potassium 4.1 Chloride 99 Carbon Dioxide 24 Anion Gap 8 BUN 20 Creatinine 0.99 Est GFR ( Amer) > 60 Glucose 95 Calcium 9.0 Impressions: Chest X-Ray 04/12/20 00:00 IMPRESSION: NO ACUTE RADIOGRAPHIC FINDING IN THE CHEST. Head CT 04/12/20 00:00 IMPRESSION: Involutional changes with chronic microvascular ischemia. No acute intracranial imaging findings. EVIDENCE OF ACUTE STROKE: NO. Assessment & Plan - Diagnosis (1) Acute renal failure Qualifiers: Acute renal failure type: unspecified Is this a current diagnosis for this admission?: Yes (2) Hyponatremia Is this a current diagnosis for this admission?: Yes (3) UTI (urinary tract infection) Qualifiers: Urinary tract infection type: site unspecified Is this a current diagnosis for this admission?: Yes (4) Diabetes mellitus type 2 in nonobese Is this a current diagnosis for this admission?: Yes (5) Hypertension Qualifiers: Hypertension type: essential hypertension Qualified Code(s): I10 - Essential (primary) hypertension Is this a current diagnosis for this admission?: Yes - Time Time Spent with patient: 25-34 minutes Level of Care: MEDICAL Medications reviewed and adjusted accordingly: Yes Anticipated discharge: Home with Homehealth Anticipated DC Timeframe: within 72 hours - Inpatient Certification Based on my medical assessment, after consideration of the patient's comorbidities, presenting symptoms, or acuity I expect that the services needed warrant INPATIENT care.: Yes I certify that my determination is in accordance with my understanding of Medicare's requirements for reasonable and necessary INPATIENT services [42 CFR 412.3e].: Yes Medical Necessity: Significant Comorbidiites Make Outpatient Treatment Too Ri remberto, Need Close Monitoring Due to Risk of Patient Decompensation, Need For IV Fluids, Need For Continuous Telemetry Monitoring, Need for IV Antibiotics, Risk of Complication if Not Cared For in Hospital, Risk of Diagnosis Which Will Require Inpatient Eval/Care/Monitoring Post Hospital Care: D/C Mix Crusher Operator Documentation, D/C or Transfer Summary - Plan Summary Plan Summary: Continue current medication management.
[2020-04-15] MEDS: DIVALPROEX SODIUM 250 MG TAB.SR.24H PO SCH (21:20)
[2020-04-15] MEDS: QUETIAPINE FUMARATE 25 MG TABLET PO SCH (21:21)
[2020-04-15] MEDS: ATORVASTATIN CALCIUM 10 MG TABLET PO SCH (21:21)
[2020-04-15] MEDS: DONEPEZIL HCL 5 MG TABLET PO SCH (21:21)
[2020-04-16] MEDS: INSULIN LISPRO 100 UNIT/ML 3 ML VIAL SUBCUT SCH ×3 (09:15→18:59)
[2020-04-16] MEDS: FERROUS SULFATE 325 MG TABLET PO SCH (09:17)
[2020-04-16] MEDS: LOSARTAN POTASSIUM 50 MG TABLET PO SCH (09:17)
[2020-04-16] MEDS: CHOLECALCIFEROL (D3) 1,000 UNIT (25 MCG) TABLET PO SCH (09:17)
[2020-04-16] MEDS: LEVOTHYROXINE SODIUM 0.025 MG TABLET PO SCH (09:17)
[2020-04-16] MEDS: PANTOPRAZOLE SODIUM 20 MG TABLET.DR PO SCH (09:17)
[2020-04-16] MEDS: MEMANTINE HCL 10 MG TABLET PO SCH ×2 (09:17→21:21)
[2020-04-16] MEDS: METOPROLOL SUCCINATE 50 MG TAB.SR.24H PO SCH (09:17)
[2020-04-16] MEDS: CLOPIDOGREL BISULFATE 75 MG TABLET PO SCH (09:17)
[2020-04-16] MEDS: MULTIVITAMIN TABLET PO SCH (09:17)
[2020-04-16] MEDS: ENOXAPARIN SODIUM INJ 40 MG/0.4 ML DISP.SYRIN SUBCUT SCH (09:18)
[2020-04-16] MEDS: FLUTICASONE NASAL SPRAY 50 MCG/SPRY 120 SPRAY/16 GM NASL SCH (09:21)
[2020-04-16] MEDS: CEFTRIAXONE 1 GM/D5W RTU 1 GM/50 ML RTUPB IV SCH (09:23)
[2020-04-16] MEDS: BUSPIRONE HCL 10 MG TABLET PO SCH ×3 (09:30→21:21)
--- NOTE | 2020-04-16 13:20 | PDOC PROGRESS REPORT ---
Subjective Date:: 04/16/20 Subjective:: Patient is currently doing well Patient's denied any chest pain no short of breath Patient sodium is much improving Urine cultures positive for gram-negative organism Reason For Visit: HYPONATREMIA, GENERAL WEAKNESS Physical Exam Vital Signs: Temp Pulse Resp BP Pulse Ox 98.2 F 73 15 152/56 H 98 04/16/20 12:00 04/16/20 12:00 04/16/20 12:00 04/16/20 12:00 04/16/20 12:00 Intake & Output 04/15/20 04/16/20 04/17/20 06:59 06:59 06:59 Intake Total 2796 1560 Balance 2796 1560 Weight 51.2 kg 52.2 kg General appearance: PRESENT: no acute distress, well-developed, well-nourished Head exam: PRESENT: atraumatic, normocephalic Eye exam: PRESENT: conjunctiva pink, EOMI, PERRLA. ABSENT: scleral icterus Ear exam: PRESENT: normal external ear exam Mouth exam: PRESENT: moist, tongue midline Neck exam: PRESENT: full ROM. ABSENT: carotid bruit, JVD, lymphadenopathy, thyromegaly Respiratory exam: PRESENT: clear to auscultation cheli Cardiovascular exam: PRESENT: RRR. ABSENT: diastolic murmur, rubs, systolic murmur Pulses: PRESENT: normal dorsalis pedis pul, +2 pedal pulses bilateral Vascular exam: PRESENT: normal capillary refill GI/Abdominal exam: PRESENT: normal bowel sounds, soft. ABSENT: distended, guarding, mass, organolmegaly, rebound, tenderness Rectal exam: PRESENT: deferred Neurological exam: PRESENT: alert, awake, oriented to person, oriented to place, oriented to time, oriented to situation, CN II-XII grossly intact. ABSENT: motor sensory deficit Psychiatric exam: PRESENT: appropriate affect, normal mood. ABSENT: homicidal ideation, suicidal ideation Skin exam: PRESENT: dry, intact, warm. ABSENT: cyanosis, rash Results Laboratory Results: 04/15/20 05:50 04/15/20 05:50 Impressions: Chest X-Ray 04/12/20 00:00 IMPRESSION: NO ACUTE RADIOGRAPHIC FINDING IN THE CHEST. Head CT 04/12/20 00:00 IMPRESSION: Involutional changes with chronic microvascular ischemia. No acute intracranial imaging findings. EVIDENCE OF ACUTE STROKE: NO. Assessment & Plan - Diagnosis (1) Hyponatremia Is this a current diagnosis for this admission?: Yes (2) Weakness Is this a current diagnosis for this admission?: Yes (3) Acute renal failure Qualifiers: Acute renal failure type: unspecified Is this a current diagnosis for this admission?: Yes (4) Anxiety disorder Qualifiers: Anxiety disorder type: generalized anxiety disorder Is this a current diagnosis for this admission?: Yes (5) Dementia Qualifiers: Dementia type: unspecified type Dementia behavioral disturbance: with behavioral disturbance Qualified Code(s): F03.91 - Unspecified dementia with behavioral disturbance Is this a current diagnosis for this admission?: Yes (6) Diabetes mellitus type 2 in nonobese Is this a current diagnosis for this admission?: Yes (7) GERD (gastroesophageal reflux disease) Qualifiers: Esophagitis presence: without esophagitis Is this a current diagnosis for this admission?: Yes (8) History of cerebrovascular disease Is this a current diagnosis for this admission?: Yes (9) UTI (urinary tract infection) Qualifiers: Urinary tract infection type: site unspecified Is this a current diagnosis for this admission?: Yes - Time Time Spent with patient: 15-24 minutes Level of Care: TELE Medications reviewed and adjusted accordingly: Yes Anticipated discharge: SNF Anticipated DC Timeframe: when bed available - Plan Summary Plan Summary: Continues the current medications patient is ready to discharge to the rehab facility
[2020-04-16] MEDS: DONEPEZIL HCL 5 MG TABLET PO SCH (21:20)
[2020-04-16] MEDS: ATORVASTATIN CALCIUM 10 MG TABLET PO SCH (21:21)
[2020-04-16] MEDS: QUETIAPINE FUMARATE 25 MG TABLET PO SCH (21:21)
[2020-04-16] MEDS: DIVALPROEX SODIUM 250 MG TAB.SR.24H PO SCH (21:21)
[2020-04-17] MEDS: INSULIN LISPRO 100 UNIT/ML 3 ML VIAL SUBCUT SCH ×3 (08:12→17:55)
[2020-04-17] MEDS: BUSPIRONE HCL 10 MG TABLET PO SCH ×3 (08:22→21:38)
[2020-04-17] MEDS: PANTOPRAZOLE SODIUM 20 MG TABLET.DR PO SCH (08:22)
[2020-04-17] MEDS: CEFTRIAXONE 1 GM/D5W RTU 1 GM/50 ML RTUPB IV SCH (10:39)
[2020-04-17] MEDS: MULTIVITAMIN TABLET PO SCH (10:41)
[2020-04-17] MEDS: FERROUS SULFATE 325 MG TABLET PO SCH (10:42)
[2020-04-17] MEDS: ENOXAPARIN SODIUM INJ 40 MG/0.4 ML DISP.SYRIN SUBCUT SCH (10:42)
[2020-04-17] MEDS: FLUTICASONE NASAL SPRAY 50 MCG/SPRY 120 SPRAY/16 GM NASL SCH (10:42)
[2020-04-17] MEDS: CLOPIDOGREL BISULFATE 75 MG TABLET PO SCH (10:42)
[2020-04-17] MEDS: METOPROLOL SUCCINATE 50 MG TAB.SR.24H PO SCH (10:42)
[2020-04-17] MEDS: LOSARTAN POTASSIUM 50 MG TABLET PO SCH (10:43)
[2020-04-17] MEDS: MEMANTINE HCL 10 MG TABLET PO SCH ×2 (10:43→21:33)
[2020-04-17] MEDS: LEVOTHYROXINE SODIUM 0.025 MG TABLET PO SCH (10:43)
[2020-04-17] MEDS: CHOLECALCIFEROL (D3) 1,000 UNIT (25 MCG) TABLET PO SCH (10:43)
--- NOTE | 2020-04-17 12:17 | PDOC TRANSFER SUMMARY ---
Impression - Admit/DC Date/PCP Admission Date/Primary Care Provider: 04/12/20 01:35 JOSE ENRIQUE LOVELACE MD Discharge Date: 04/17/20 - Discharge Diagnosis (1) Hyponatremia Is this a current diagnosis for this admission?: Yes (2) Weakness Is this a current diagnosis for this admission?: Yes (3) Acute renal failure Is this a current diagnosis for this admission?: Yes (4) Anxiety disorder Is this a current diagnosis for this admission?: Yes (5) Dementia Is this a current diagnosis for this admission?: Yes (6) Diabetes mellitus type 2 in nonobese Is this a current diagnosis for this admission?: Yes (7) GERD (gastroesophageal reflux disease) Is this a current diagnosis for this admission?: Yes (8) History of cerebrovascular disease Is this a current diagnosis for this admission?: Yes (9) UTI (urinary tract infection) Is this a current diagnosis for this admission?: Yes - Additional Information Discharge Diet: Diabetic Discharge Activity: Activity As Tolerated Referrals: JOSE ENRIQUE LOVELACE MD [Primary Care Provider] - Follow up as needed Prescriptions: Cephalexin Monohydrate [Keflex 500 mg Capsule] 500 mg PO BID #14 capsule Home Medications: Atorvastatin Calcium [Lipitor 10 mg Tablet] 10 mg PO QHS 07/18/19 Buspirone HCl 5 mg PO TID 07/18/19 Cholecalciferol (Vitamin D3) [Vitamin D3 1000 Unit Tablet] 1,000 unit PO DAILY 07/18/19 Clopidogrel Bisulfate [Plavix 75 mg Tablet] 75 mg PO DAILY 07/18/19 Donepezil HCl [Donepezil HCl Odt] 10 mg PO QHS 07/18/19 Ferrous Sulfate [Feosol 325 mg Tablet] 325 mg PO DAILY 07/18/19 Fluticasone Propionate [Flonase Nasal [place] 50 Mcg/[place] 16 gm] 1 spray NASL DAILY 07/18/19 Levothyroxine Sodium [Synthroid 0.025 mg Tablet] 25 mcg PO DAILY 07/18/19 Memantine HCl [Namenda] 5 mg PO Q12 07/18/19 Metoprolol Succinate [Toprol Xl 50 mg Tab.sr] 50 mg PO DAILY 07/18/19 Multivit with Calcium,Iron,Min [Multiple Vitamins For Women] 1 each PO DAILY 07/18/19 Nateglinide [Starlix] 60 mg PO Q12 07/18/19 Pantoprazole Sodium [Protonix [address] Tablet] 20 mg PO QAM 07/18/19 Divalproex Sodium [Depakote ER 250 mg Tablet] 750 mg PO QHS 04/12/20 Losartan Potassium [Cozaar 50 mg Tablet] 50 mg PO DAILY 04/12/20 Quetiapine Fumarate [Seroquel] 12.5 mg PO QHS 04/12/20 Cephalexin Monohydrate [Keflex 500 mg Capsule] 500 mg PO BID #14 capsule 04/17/20 History of Present Illiness History of Present Illness: VEGA MARIO is a 84 year old female Is a 84-year-old female with a significant history of the dementia is with the behavior problems with a history of the type 2 diabetes with a chronic kidney disease hypertensions hyperlipidemia coronary disease recurrent urinary tract infections brought to the emergency departments by EMS because of the patient's was wobbly and collapse and the patient in emergency departments basically a normal but only thing is abnormal as the patient's sodium is 122 Patient recently have a E. coli urinary tract infections and the patient's was drinking more water according to the daughter also patient was started on a resparidone 0.25 mg due to the behavior problems Patient at this point given normal saline is patient's current sodium is 124 range Patient's denied any chest pain no short of breath patient's very pleasant dementia is smiling At this point will admit the patient's for further evaluations Hospital Course Hospital Course: This 84-year-old female with the multiple medical problems clear dementia hypertension hyperlipidemia type 2 diabetes chronic kidney disease present in the emergency department with the weakness with the patient's sodium was 122 patient also have a urinary tract infections and renal failure Patient at this point treat with the IV fluid fluid restrictions patient is responds very well Treat with IV antibiotic with the UTI and put on a p.o. antibiotic Since risperidone and hydrochlorothiazide was discontinued's Patient is otherwise back to the baseline very pleasant dementia's no behavior issue at this point Discussed with the patient's daughter prefer to go to the [facility] Patient is currently a DNR/DNI Physical Exam Vital Signs: Temp Pulse Resp BP Pulse Ox 98.3 F 65 18 136/61 H 100 04/17/20 08:21 04/17/20 08:21 04/17/20 08:21 04/17/20 08:21 04/17/20 08:21 Intake & Output 04/16/20 04/17/20 04/18/20 06:59 06:59 06:59 Intake Total 1560 50 Balance 1560 50 Weight 52.2 kg 52.2 kg General appearance: PRESENT: no acute distress, well-developed, well-nourished Head exam: PRESENT: atraumatic, normocephalic Eye exam: PRESENT: conjunctiva pink, EOMI, PERRLA. ABSENT: scleral icterus Ear exam: PRESENT: normal external ear exam Mouth exam: PRESENT: moist, tongue midline Neck exam: ABSENT: carotid bruit, JVD, lymphadenopathy, thyromegaly Respiratory exam: PRESENT: clear to auscultation cheli. ABSENT: rales, rhonchi, wheezes Cardiovascular exam: PRESENT: RRR. ABSENT: diastolic murmur, rubs, systolic murmur Pulses: PRESENT: normal dorsalis pedis pul Vascular exam: PRESENT: normal capillary refill GI/Abdominal exam: PRESENT: normal bowel sounds, soft. ABSENT: distended, guarding, mass, organolmegaly, rebound, tenderness Rectal exam: PRESENT: deferred Extremities exam: PRESENT: full ROM. ABSENT: calf tenderness, clubbing, pedal edema Neurological exam: PRESENT: alert, awake, oriented to person, oriented to place. ABSENT: motor sensory deficit Psychiatric exam: PRESENT: appropriate affect, normal mood. ABSENT: homicidal ideation, suicidal ideation Skin exam: PRESENT: dry, intact, warm. ABSENT: cyanosis, rash Results Laboratory Results: WBC 6.7 10^3/uL (4.0-10.5) 04/15/20 05:50 RBC 2.93 10^6/uL (3.72-5.28) L 04/15/20 05:50 Hgb 10.0 g/dL (12.0-15.5) L 04/15/20 05:50 Hct 28.2 % (36.0-47.0) L 04/15/20 05:50 MCV 96 fl (80-97) 04/15/20 05:50 MCH 34.1 pg (27.0-33.4) H 04/15/20 05:50 MCHC 35.5 g/dL (32.0-36.0) 04/15/20 05:50 RDW 13.3 % (11.5-14.0) 04/15/20 05:50 Plt Count 132 10^3/uL (150-450) L 04/15/20 05:50 Lymph % (Auto) 22.1 % (13-45) 04/15/20 05:50 [place] % (Auto) 10.1 % (3-13) 04/15/20 05:50 Eos % (Auto) 6.3 % (0-6) H 04/15/20 05:50 Baso % (Auto) 0.4 % (0-2) 04/15/20 05:50 Absolute Neuts (auto) 4.1 10^3/uL (1.7-8.2) 04/15/20 05:50 Absolute Lymphs (auto) 1.5 10^3/uL (0.5-4.7) 04/15/20 05:50 Absolute Monos (auto) 0.7 10^3/uL (0.1-1.4) 04/15/20 05:50 Absolute Eos (auto) 0.4 10^3/uL (0.0-0.6) 04/15/20 05:50 Absolute Basos (auto) 0.0 10^3/uL (0.0-0.2) 04/15/20 05:50 Seg Neutrophils % 61.1 % (42-78) 04/15/20 05:50 Sodium 131.2 mmol/L (137-145) L 04/15/20 05:50 Potassium 4.1 mmol/L (3.6-5.0) 04/15/20 05:50 Chloride 99 mmol/L (98-107) 04/15/20 05:50 Carbon Dioxide 24 mmol/L (22-30) 04/15/20 05:50 Anion Gap 8 (5-19) 04/15/20 05:50 BUN 20 mg/dL (7-20) 04/15/20 05:50 Creatinine 0.99 mg/dL (0.52-1.25) 04/15/20 05:50 Est GFR ( Amer) > 60 (>60) 04/15/20 05:50 Est GFR (MDRD) Non-Af 54 (>60) L 04/15/20 05:50 Glucose 95 mg/dL (75-110) 04/15/20 05:50 POC Glucose 176 mg/dL (70-110) H 04/17/20 11:18 Serum Osmolality 272 mOsm/kg (275-301) L 04/11/20 23:13 Calcium 9.0 mg/dL (8.4-10.2) 04/15/20 05:50 Magnesium 1.8 mg/dL (1.6-2.3) 04/11/20 23:13 Total Bilirubin 0.5 mg/dL (0.2-1.3) 04/11/20 23:13 Direct Bilirubin 0.1 mg/dL (0.0-0.4) 04/11/20 23:13 Neonat Total Bilirubin Not Reportable 04/11/20 23:13 Neonat Direct Bilirubin Not Reportable 04/11/20 23:13 Neonat Indirect Bili Not Reportable 04/11/20 23:13 AST 34 U/L (14-36) 04/11/20 23:13 ALT 20 U/L (<35) 04/11/20 23:13 Alkaline Phosphatase 101 U/L (38-126) 04/11/20 23:13 Total Protein 6.7 g/dL (6.3-8.2) 04/11/20 23:13 Albumin 4.0 g/dL (3.5-5.0) 04/11/20 23:13 Urine Color STRAW 04/12/20 00:56 Urine Appearance CLEAR 04/12/20 00:56 Urine pH 6.0 (5.0-9.0) 04/12/20 00:56 Ur Specific [place] 1.010 04/12/20 00:56 Urine Protein NEGATIVE mg/dL (NEGATIVE) 04/12/20 00:56 Urine Glucose (UA) NEGATIVE mg/dL (NEGATIVE) 04/12/20 00:56 Urine Ketones NEGATIVE mg/dL (NEGATIVE) 04/12/20 00:56 Urine Blood NEGATIVE (NEGATIVE) 04/12/20 00:56 Urine Nitrite NEGATIVE (NEGATIVE) 04/12/20 00:56 Urine Bilirubin NEGATIVE (NEGATIVE) 04/12/20 00:56 Urine Urobilinogen NEGATIVE mg/dL (<2.0) 04/12/20 00:56 Ur Leukocyte Esterase NEGATIVE (NEGATIVE) 04/12/20 00:56 Urine WBC (Auto) 1 /HPF 04/12/20 00:56 Urine RBC (Auto) 0 /HPF 04/12/20 00:56 Squamous Epi Cells Auto <1 /HPF 04/12/20 00:56 Urine Mucus (Auto) RARE /LPF 04/12/20 00:56 Urine Osmolality 389 mOsm/kg (300-900) 04/12/20 00:56 Urine Total Protein 9.9 mg/dL (<12) 04/12/20 00:56 Urine Ascorbic Acid 20 (NEGATIVE) H 04/12/20 00:56 COVID-19 Source See comment 04/13/20 19:15 COVID-19 (ARACELI) Not Detected (Not Detect) 04/13/20 19:15 Impressions: Chest X-Ray 04/12/20 00:00 IMPRESSION: NO ACUTE RADIOGRAPHIC FINDING IN THE CHEST. Head CT 04/12/20 00:00 IMPRESSION: Involutional changes with chronic microvascular ischemia. No acute intracranial imaging findings. EVIDENCE OF ACUTE STROKE: NO. Plan Time Spent: Greater than 30 Minutes - Patient is discharged to the nursing facilities when the bed available repeat the Chem-7 and CBC in 1 week Stroke Is this a Stroke Patient?: No Acute Heart Failure Is this a Heart Failure Patient?: No
[2020-04-17] MEDS: QUETIAPINE FUMARATE 25 MG TABLET PO SCH (21:32)
[2020-04-17] MEDS: DIVALPROEX SODIUM 250 MG TAB.SR.24H PO SCH (21:32)
[2020-04-17] MEDS: DONEPEZIL HCL 5 MG TABLET PO SCH (21:32)
[2020-04-17] MEDS: ATORVASTATIN CALCIUM 10 MG TABLET PO SCH (21:32)
[2020-04-18] MEDS: PANTOPRAZOLE SODIUM 20 MG TABLET.DR PO SCH (08:04)
[2020-04-18] MEDS: BUSPIRONE HCL 10 MG TABLET PO SCH (08:04)
[2020-04-18] MEDS: INSULIN LISPRO 100 UNIT/ML 3 ML VIAL SUBCUT SCH ×2 (08:07→14:04)
[2020-04-18 09:49] LABS: ANION GAP 10 (5-19); BLOOD UREA NITROGEN 27 mg/dL (7-20); CALCIUM 9.3 mg/dL (8.4-10.2); CARBON DIOXIDE 25 mmol/L (22-30); CHLORIDE 98 mmol/L (98-107); GLUCOSE 148 mg/dL (75-110); POTASSIUM 3.9 mmol/L (3.6-5.0)
[2020-04-18] MEDS: CLOPIDOGREL BISULFATE 75 MG TABLET PO SCH (10:07)
[2020-04-18] MEDS: LEVOTHYROXINE SODIUM 0.025 MG TABLET PO SCH (10:07)
[2020-04-18] MEDS: MEMANTINE HCL 10 MG TABLET PO SCH (10:07)
[2020-04-18] MEDS: METOPROLOL SUCCINATE 50 MG TAB.SR.24H PO SCH (10:08)
[2020-04-18] MEDS: LOSARTAN POTASSIUM 50 MG TABLET PO SCH (10:08)
[2020-04-18] MEDS: CHOLECALCIFEROL (D3) 1,000 UNIT (25 MCG) TABLET PO SCH (10:08)
[2020-04-18] MEDS: MULTIVITAMIN TABLET PO SCH (10:08)
[2020-04-18] MEDS: CEFTRIAXONE 1 GM/D5W RTU 1 GM/50 ML RTUPB IV SCH (10:09)
[2020-04-18] MEDS: FLUTICASONE NASAL SPRAY 50 MCG/SPRY 120 SPRAY/16 GM NASL SCH (10:09)
[2020-04-18] MEDS: FERROUS SULFATE 325 MG TABLET PO SCH (10:09)
[2020-04-18] MEDS: ENOXAPARIN SODIUM INJ 40 MG/0.4 ML DISP.SYRIN SUBCUT SCH (10:09)
[2020-04-18 11:39] VITALS: BP 162/83
== END 2020-04-18 13:43 | DRG 641 ==
LOC: ER 22:40 → EH 04-12 01:35 → 4S 04-12 16:05
PROVIDERS: ADMIT Family Medicine; ATTEND Family Medicine
DX: E87.1 Hypo-osmolality and hyponatremia (principal); F03.91 Unspecified dementia, unspecified severity, with behavioral disturbance; N39.0 Urinary tract infection, site not specified; N17.9 Acute kidney failure, unspecified; E78.5 Hyperlipidemia, unspecified; I25.10 Atherosclerotic heart disease of native coronary artery without angina pectoris; I12.9 Hypertensive chronic kidney disease with stage 1 through stage 4 chronic kidney disease, or unspecified chronic kidney disease; E11.22 Type 2 diabetes mellitus with diabetic chronic kidney disease; N18.9 Chronic kidney disease, unspecified; R53.1 Weakness; F41.9 Anxiety disorder, unspecified; K21.9 Gastro-esophageal reflux disease without esophagitis; G47.30 Sleep apnea, unspecified; B96.20 Unspecified Escherichia coli [E. coli] as the cause of diseases classified elsewhere; E03.9 Hypothyroidism, unspecified; M06.9 Rheumatoid arthritis, unspecified; F32.9 Major depressive disorder, single episode, unspecified; Z79.899 Other long term (current) drug therapy; Z79.02 Long term (current) use of antithrombotics/antiplatelets; Z66 Do not resuscitate; Z86.79 Personal history of other diseases of the circulatory system; Z88.8 Allergy status to other drugs, medicaments and biological substances; Z86.69 Personal history of other diseases of the nervous system and sense organs; Z20.828 Contact with and (suspected) exposure to other viral communicable diseases
CPT/HCPCS: 36415; 70450; 71045; 80048; 80053; 81001; 82962; 83735; 83930; 83935; 84156; 85025; 87040; 87086; 87088; 87186; 87635; 93005; 93010; 96360; 99285; 0241U; C9803; J0696; J1650; J1815; J3490; J7030